=== PATIENT | male | born 1945 | race Caucasian/White ===

== ENCOUNTER 2019-05-26 07:26 | Inpatient (IN) | payer MEDICARE, OTHER, SELFPAY ==
[2019-05-26] VITALS (9 sets, daily range): BP systolic 135–169; BP diastolic 70–91; PULSE 61–90; RESP 18–20; TEMP 36.3–37.1; O2SAT 93–98; BMI 39.7
--- NOTE | 2019-05-26 07:33 | ED_ITS ---
HPI - Male Genitourinary General: Chief complaint: Urogenital-Male Stated complaint: can't urinate Time Seen by Provider: 05/26/19 07:33 Source: patient Mode of arrival: ambulatory Limitations: no limitations History of Present Illness: HPI Narrative: 73-year-old male comes in today with dysuria. Patient reports Monday night he had become intoxicated and was seen at emergency room and [place]. At that time patient was released to home care and has been doing okay but he has not been able to urinate stream. Patient reports that he has had a seepage of urine from his penis since then. Patient reports he also feels full in the abdomen and has some right flank pain. Patient denies chills or fever. Patient has a history of BPH which he is on tamsulosin for. Patient also takes routine medication for blood pressure and cholesterol. Patient appears well, patient appears in mild pain. MD Complaint: dysuria Review of Systems General: Reports: 10 or more systems reviewed and unremarkable except in HPI and below : Reports: difficulty urinating PFSH ED PFSH: Statuses (acute, chronic, etc) shown below reflect problem list status as previously entered and may not be historically accurate Social History (Updated 05/24/19 @ 14:42 by Mindy Kingston LPN) Smoking and tobacco status: never smoked Second hand smoke exposure: No Smoking risk assessment/counseling performed?: No Alcohol intake: never Desire information about alcohol rehabilitation?: No Counseling given: No Desire information about substance/drug rehabilitation?: No Counseling given: No Physical Exam Const: COMMON NORMALS: no apparent distress and oriented x3 GENERAL APPEARANCE: cooperative HENMT: COMMON NORMALS: normocephalic, external ears normal, EAC's normal, TM's normal bilaterally and external nose normal HEAD & SCALP: normal to inspection and normocephalic FACE & SINUS: normal facial exam NOSE: external nose normal GENERAL EAR: hearing not grossly impaired EXTERNAL EAR: Yes external ears normal EXTERNAL AUDITORY CANAL: EAC's normal TYMPANIC MEMBRANE: TM's normal bilaterally MOUTH: oral and palatal mucosa normal THROAT: posterior oropharynx normal Eye: COMMON NORMALS: PERRL and EOMs intact bilaterally PUPIL: Yes PERRL Neck/C-Spine: COMMON NORMALS: full ROM and no lymphadenopathy Lymph: LYMPHATIC: no lymphedema noted Chest: COMMONS NORMALS: inspection of chest normal and palpation of chest normal Resp: COMMON NORMALS: normal respiratory effort and clear to auscultation bilaterally AUSCULTATION: clear to auscultation bilaterally Cardio: COMMON NORMALS: regular rate and regular rhythm RATE: regular rate RHYTHM: regular rhythm GI: COMMON NORMALS: normal to inspection, nondistended, normoactive bowel sounds PALPATION: Yes tender (suprapubic tenderness) : COMMON NORMALS: Yes no CVA tenderness BLADDER/KIDNEY EXAM: Yes no CVA tenderness Back/Pelvis: COMMON NORMALS: no CVA tenderness and thoracic and lumbar spine normal to inspection Extremity: COMMON NORMALS: normal to inspection GENERAL: No edema Neuro: COMMON NORMALS: oriented x3, moves all extremities and no focal motor deficits Psych: COMMON NORMALS: mental status grossly normal and cooperative Skin: COMMON NORMALS: no rashes or lesions noted GENERAL SKIN EXAM: no rashes or lesions noted Course ED course: 0850, patient has had 1200 urine output at this time through Voss catheterization. Patient is resting well. Reviewed labs with patient as patient is in acute kidney failure. Patient's creatinine has gone from 0.8 in February 2019 to [address] Alonzo who agreed patient needed to be admitted for further evaluation and treatment. ww 0920, Dr. Willoughby consulted for hospital admission. Dr. Lockwood notified of consult, he will see in hospital as needed. Dr. Alonzo did admission orders. w Vital Signs: Vital signs: Vital Signs Temperature 97.9 F 05/26/19 07:31 Pulse Rate 80 05/26/19 10:32 Respiratory Rate 18 05/26/19 10:32 Blood Pressure 155/91 05/26/19 10:32 Pulse Oximetry 98 05/26/19 10:32 MDM - Male MDM Narrative: Medical decision making narrative: Patient comes in today for complaints of urinary difficulty. On exam patient had right CVA tenderness, abdominal tenderness. Respirations were even lungs are clear to auscultation. Skin was warm and dry color is pink. Differential diagnosis includes UTI, urinary retention, obstructive uropathy, renal calculi, acute kidney failure. CT scan noted distended bladder with bilateral hydronephrosis. Laboratory values noted a elevated creatinine at 13. Urinalysis noted blood in urine. Strongly suggest acute kidney injury with urinary retention. Patient will need admission to the hospital for monitoring of urinary function and possible nephrology consult for further treatment of acute kidney failure. Urinary catheterization was performed in the emergency room with greater than 2000 mL out. Lab Data: Labs: Lab Results 05/26/19 05/26/19 05/26/19 Range/Units 07:50 07:50 08:20 WBC 11.1 H (4.0-10.0) 10^3/ uL RBC 4.11 (4.1-5.3) 10^6/u L Hgb 12.6 (11.7-16.6) g/dL Hct 36.6 L (42.0-52.0) % MCV 89.1 (80-94) fL MCH 30.7 (28.0-34.0) pg MCHC 34.4 (30.0-36.0) g/dL RDW 13.6 (12.1-15.1) % Plt Count 195 (130-400) 10^3/c mm MPV 10.9 H (7.4-10.4) fL Neut % (Auto) 83.9 % Lymph % (Auto) 5.3 % [place] % (Auto) 9.5 % Eos % (Auto) 0.3 % Baso % (Auto) 0.2 % Neut # (Auto) 9.3 H (1.8-7.7) 10^3/u L Lymph # (Auto) 0.6 L (0.8-4.8) 10^3/u L [place] # (Auto) 1.1 H (0.2-0.9) 10^3/u L Eos # (Auto) 0.0 (0.0-0.8) 10^3/u L Baso # (Auto) 0.0 (0.0-0.1) 10^3/u L Nucleated RBC % (a uto) 0 % Nucleated RBCs # 0.0 /100WBC Sodium 132 L (136-145) mmol/L Potassium 4.7 (3.5-5.1) mmol/L Chloride 93 L (98-107) mmol/L Carbon Dioxide 19 L (22-29) mmol/L Anion Gap 24.7 H (5-19) BUN 119 H* (8-23) mg/dL Creatinine 13.3 H* (0.7-1.2) mg/dL Glucose 126 H (65-115) mg/dL Calcium 9.3 (8.5-10.5) mg/dL Total Bilirubin 0.4 (0.15-1.2) mg/dL AST 14 (0-40) U/L ALT 13 (0-41) U/L Alkaline Phosphata se 84 (40-130) IU/L Total Protein 6.6 (6.6-8.7) g/dL Albumin 3.7 (3.5-5.2) g/dL Globulin 2.9 (1.3-4.6) g/dL Urine Color Straw (Yellow) Urine Appearance Hazy A (CLEAR) Urine pH 5 (5-7) Ur Specific Gravit y 1.010 (1.005-1.030) Urine Protein 1+ H (Negative) Urine Glucose (UA) Norm (Normal) Urine Ketones Negative (Negative) Urine Occult Blood 3+ H (Negative) Urine Nitrate Negative (Negative) Urine Bilirubin Neg (NEGATIVE) Urine Urobilinogen Norm (Negative) mg/dL Ur Leukocyte [place] a[place] Negative (Negative) Urine RBC 5-10 H (0-2) /hpf Urine WBC None (0-5) /hpf Ur Squamous Epith Cells Rare (0-5) Amorphous Sediment 1+ Urine Bacteria Trace (NONE) Urine Mucus Trace Ethyl Alcohol < 10 (0-10) mg/dL Discharge Plan Discharge Patient Disposition: Admitted As Inpatient Admit Provider: Robbi Lam Clinical Impression: MANUEL (acute kidney injury), Acute retention of urine Condition: Stable Referrals: Saúl Penaloza, FLOORING SALESPERSON [Primary Care Provider] - Coding Level of Care Code ED Public Health Aide for Chg Fwd Exam Problem Focused
--- NOTE | 2019-05-26 07:42 | CT_ITS ---
WS: [id number] CT ABDOMEN PELVIS HISTORY: 73 years old Male with right flank pain COMPARISON: None available. TECHNIQUE: 2.[address] images of the abdomen and pelvis with 2-D reformats. DLP: 2225.[address] scans at [facility] use at least one of these dose optimization techniques: automat ed exposure control; mA and/or kV adjustment per patient size (includes targeted exams where dose is matched to clinical indication); or iterative reconstruction. FINDINGS: Inferior lingular and bilateral lower lobe linear subsegmental atelectasis. No pleural or pericardial effusions. Left coronary artery calcifications. Aortic annular calcifications. GE junction and dista l esophagus unremarkable. Distal descending thoracic aorta atherosclerosis. Included ribs intact. Splenic calcified granulomas, otherwise the spleen is unremarkable. Adrenal glands, pancreas, contrac micaela gallbladder, and liver with multiple low-attenuation lesions measuring up to 17 mm cyst, otherwis e unremarkable. Large right kidney inferior pole 9.6 cm, right mid kidney anterior 3.7 cm, right mid kidney 2.3 cm, and left kidney inferior pole 5.2 cm cyst. Mild bilateral hydronephrosis and hydrouret er to the level of the urinary bladder. Urinary bladder is moderately distended. No evidence of urete rolithiasis. Right kidney lower pole 4.9 mm stone. No biliary stone seen. No obvious biliary or pancr eatic ductal dilatation. Symmetric bilateral perinephric fat induration. No pericholecystic or peripa ncreatic fat induration. Stomach, small bowel, large bowel are not abnormally distended. Scattered transverse, descending, sig moid colon diverticulosis without evidence of diverticulitis. The retrocecal appendix is unremarkable . No obvious bowel wall thickening or adjacent fat induration. Perivesical fat induration is seen anteriorly and left along the left urinary bladder as well as retr operitoneal the left ureter. Prostate is enlarged and along the posterior prostate, there is curvilin ear edema and/or fluid with calcifications. Perirectal fat planes are unremarkable. Small umbilical fat-containing hernia. No inguinal, retroperitoneal, or mesenteric enlarged lymph nod e. Proximal to the aortic bifurcation there is a 4.3 cm saccular aneurysm. Aortoiliac artery calcific atheromatous plaque. No free air, free fluid, fluid collection. Bilateral hip joint and SI joint ost eoarthrosis. Left convex thoracolumbar spine curvature. No fracture destruction seen. CT/CT kidney stone [id number] IMPRESSION: 1. Mild bilateral hydronephrosis and hydroureter and moderately distended urina ry bladder; question vesicoureteral reflux or bilateral UVJ obstruction. 2. Nonspecific perivesical and left retroperitoneal soft tissue induration may be secondary to postinfectious/inflammatory process. Other etiologies not exclu ded. Consider short-term follow-up CT abdomen pelvis in 3 months. 3. Hepatorenal cysts. 4. Right nephrolithiasis. 5. 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 6. Prostatomegaly with posterior prostatic low-attenuation, possibly represents prostatic edema or small fluid collection. Clinical/biochemical correlation ne eded.
[2019-05-26 08:06] LABS: Basophils % 0.2 %; Eosinophils % 0.3 %; Hematocrit 36.6 % (42.0-52.0); Hemoglobin 12.6 g/dL (11.7-16.6); Lymphocytes # 0.6 10^3/uL (0.8-4.8); Lymphocytes % 5.3 %; Mean Corpuscular HGB Conc 34.4 g/dL (30.0-36.0); Mean Corpuscular Hemoglobin 30.7 pg (28.0-34.0); Mean Corpuscular Volume 89.1 fL (80-94); Mean Platelet Volume 10.9 fL (7.4-10.4); Monocytes # 1.1 10^3/uL (0.2-0.9); Monocytes % 9.5 %; Neutrophils # 9.3 10^3/uL (1.8-7.7); Neutrophils % 83.9 %; Nucleated Red Blood Cells % 0 %; Platelet Count 195 10^3/cmm (130-400); Red Blood Count 4.11 10^6/uL (4.1-5.3); Red Cell Distribution Width 13.6 % (12.1-15.1); White Blood Count 11.1 10^3/uL (4.0-10.0)
[2019-05-26] MEDS: HYDROcodone-acetaminophen 5-325 mg Tablet 1 TAB PO ×2 (08:07→22:34)
[2019-05-26 08:25] LABS: Alanine Aminotransferase 13 U/L (0-41); Albumin Level 3.7 g/dL (3.5-5.2); Alkaline Phosphatase 84 IU/L (40-130); Anion Gap 24.7 (5-19); Aspartate Amino Transferase 14 U/L (0-40); Calcium 9.3 mg/dL (8.5-10.5); Carbon Dioxide 19 mmol/L (22-29); Chloride 93 mmol/L (98-107); Globulin 2.9 g/dL (1.3-4.6); Glucose 126 mg/dL (65-115); Potassium 4.7 mmol/L (3.5-5.1); Sodium 132 mmol/L (136-145); Total Bilirubin 0.4 mg/dL (0.15-1.2); Total Protein 6.6 g/dL (6.6-8.7)
[2019-05-26 08:38] LABS: Alcohol Level < 10 mg/dL (0-10)
[2019-05-26 08:39] LABS: Blood Urea Nitrogen 119 mg/dL (8-23)
[2019-05-26 08:52] LABS: Urine Appearance Hazy (CLEAR); Urine Color Straw (Yellow)
[2019-05-26 08:53] LABS: Add Urine Microscopic? YES; Bilirubin Urine Neg (NEGATIVE); Blood Urine 3+ (Negative); Glucose Urine UA Norm (Normal); Ketones Urine Negative (Negative); Leukocyte Esterase Urine Negative (Negative); Nitrate Urine Negative (Negative); Protein Urine 1+ (Negative); Urobilinogen Urine Norm (Negative); pH Urine 5 (5-7)
[2019-05-26 08:54] LABS: Amorphous Sediment Urine 1+; Bacteria Urine TRACE; Mucus Urine TRACE; Squamous Epithelial Cell Urine RARE (0-5)
[2019-05-26 08:55] LABS: Add Urine Culture? No
--- NOTE | 2019-05-26 10:11 | PC.NURSE ---
pt stated no needs at this time
--- NOTE | 2019-05-26 10:23 | PC.NURSE ---
pt position changed. rn in to start IV.
[2019-05-26] MEDS: sodium chloride 0.9% 1,000 ML 100 ML IV ×2 (11:27→21:06)
[2019-05-26] MEDS: tamsulosin 0.4 mg Capsule PO (11:29)
[2019-05-26] MEDS: atorvastatin 40 mg Tablet 20 MG PO (11:30)
[2019-05-26] MEDS: allopurinol 100 mg Tablet 200 MG PO (11:30)
[2019-05-26] MEDS: metoprolol succinate ER (24 HR) 50 mg Tablet PO (11:30)
[2019-05-26] MEDS: amlodipine 5 mg Tablet 2.5 MG PO (11:30)
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
[2019-05-26] MEDS: heparin 5,000 unit/mL INJ 1 mL 5000 UNIT SUBCUT (15:45)
[2019-05-26] MEDS: artificial tears Op Soln 15 mL Btl 1 DROP EYE-BOTH (17:45)
--- NOTE | 2019-05-26 17:54 | NUR.SHIFT ---
PATIENT WAS TRANSFERRED TO THE OR FROM THE ER. WHEN REPORT WAS CALLED TO THIS NURSE IT WAS TOLD THAT PATIENT HAD 3000ML OF URINE OUTPUT IN THE GABRIEL CATHETER IN THE ER. THIS NURSE HAS HAD 3900ML OF URINE OUTPUT CLAMPING GABRIEL CATHETER TO NOT RECEIVE MORE THAN 1000ML OF URINE AT AT TIME. PATIENT'S URINE ALTERNATES BETWEEN CLEAR AND HEMATURIA. NO BLADDER SPASMS. NO PAIN.
[2019-05-27] VITALS (7 sets, daily range): BP systolic 110–153; BP diastolic 63–87; PULSE 76–84; RESP 18–20; TEMP 36.7–36.9; O2SAT 90–95
[2019-05-27 06:22] LABS: Basophils # 0.1 10^3/uL (0.0-0.1); Basophils % 0.8 %; Eosinophils # 0.1 10^3/uL (0.0-0.8); Eosinophils % 1.5 %; Hematocrit 37.3 % (42.0-52.0); Hemoglobin 12.4 g/dL (11.7-16.6); Lymphocytes # 0.8 10^3/uL (0.8-4.8); Lymphocytes % 10.7 %; Mean Corpuscular HGB Conc 33.2 g/dL (30.0-36.0); Mean Corpuscular Hemoglobin 31.6 pg (28.0-34.0); Mean Corpuscular Volume 94.9 fL (80-94); Mean Platelet Volume 10.7 fL (7.4-10.4); Monocytes # 0.7 10^3/uL (0.2-0.9); Monocytes % 9.8 %; Neutrophils # 5.6 10^3/uL (1.8-7.7); Neutrophils % 76.4 %; Nucleated Red Blood Cells % 0 %; Platelet Count 215 10^3/cmm (130-400); Red Blood Count 3.93 10^6/uL (4.1-5.3); Red Cell Distribution Width 13.8 % (12.1-15.1); White Blood Count 7.4 10^3/uL (4.0-10.0)
[2019-05-27 06:36] LABS: Anion Gap 16.4 (5-19); Blood Urea Nitrogen 40 mg/dL (8-23); Calcium 9.4 mg/dL (8.5-10.5); Carbon Dioxide 24 mmol/L (22-29); Chloride 108 mmol/L (98-107); Glucose 115 mg/dL (65-115); Osmolality Calculated 297 mOsm/kg (285-295); Potassium 4.4 mmol/L (3.5-5.1); Sodium 144 mmol/L (136-145)
[2019-05-27] MEDS: sodium chloride 0.9% 1,000 ML 100 ML IV (07:46)
[2019-05-27] MEDS: tamsulosin 0.4 mg Capsule PO (08:42)
[2019-05-27] MEDS: metoprolol succinate ER (24 HR) 50 mg Tablet PO (08:42)
[2019-05-27] MEDS: atorvastatin 40 mg Tablet 20 MG PO (08:42)
[2019-05-27] MEDS: amlodipine 5 mg Tablet 2.5 MG PO (08:42)
--- NOTE | 2019-05-27 08:55 | P.DS_ITS ---
Discharge Providers Date of Admission: 05/26/19 09:41 Date of Discharge: May 27, 2019 Attending Provider at Admission: Robbi Lam Attending Provider at Discharge: Robbi Lam Primary Care Provider: LUCAS Colby Diagnoses at Discharge Discharge Diagnosis (1) Acute retention of urine: Status: Acute (2) MANUEL (acute kidney injury): Status: Acute Reason for Visit Reason for Visit: Reason For Visit: obstructive uropathy Hospital Course Hospital Course: A pleasant 73-year-old gentleman with history of BPH, this, HTN, epididymitis, HTN, HLD, gout was admitted for assessment management of acute urinary obstruction, with inability to urinate since Monday, with overflow incontinence for which he has been having to wear depends, changing 2 or more soaked ones per day, was assessed by CT scan with finding of dilated urinary bladder as well as hydroureteronephrosis, with acute kidney injury with creatinine of 13.3. Urinary catheter was placed in ER with drainage of large amount of urine, subsequently mild hematuria. This is since resolved. He is received IV hydration overnight. His acute kidney injury, suspected due to combination post renal, as well as prerenal with poor appetite and oral intake, has improved remarkably with creatinine down to 1.6 this morning, improving quicker than expected. He reports he is feeling great and is ready to return home, and so will be discharged there with Voss catheter in place with leg bag, and we will increase his Flomax dose 2.8 mg. Discussed with him to follow-up with urology in 1-2 weeks. Please recheck his renal function in office. Physical Exam Const: COMMON NORMALS: no apparent distress and oriented x3 NUTRITIONAL APPEARANCE: obese OTHER: Conversant. HENMT: COMMON NORMALS: oropharynx normal Neck/C-Spine: COMMON NORMALS: no JVD Resp: COMMON NORMALS: normal respiratory effort and clear to auscultation bilaterally AUSCULTATION: clear to auscultation bilaterally Cardio: COMMON NORMALS: no JVD, regular rhythm, S1 normal heart sound, S2 normal heart sound and no murmurs RHYTHM: regular rhythm HEART SOUNDS: S1 normal and S2 normal GI: COMMON NORMALS: normal to inspection, nondistended, normoactive bowel sounds, soft to palpation and non-tender PALPATION: Yes soft Extremity: COMMON NORMALS: no joint enlargement and no pedal edema Neuro: COMMON NORMALS: oriented x3 and moves all extremities Skin: COMMON NORMALS: no rashes or lesions noted GENERAL SKIN EXAM: no rashes or lesions noted and dry skin Urinary Catheter Management^: 2-way Urethral: Cath Placed During This Visit: yes Urethral Indwelling: Yes Reason for Continuing Indwelling Catheter: Acute Urinary Retention or Obstruction Urinary Catheter Date of Insertion: 05/26/19 Urinary Catheter Time of Insertion: 08:31 Discharge Data Data Completed and Pending: Completed Studies During Hospitalization Category Date Time Status CT kidney stone [id number] Urgent Cat Scan 05/26/19 07:42 Completed Pending at discharge Category Date Time Status Basic Metabolic P adrian AM LABS Lab 05/28/19 04:00 Ordered Basic Metabolic P adrian AM LABS Lab 05/29/19 04:00 Ordered Complete Blood Co unt w/Auto AM LABS Lab 05/28/19 04:00 Ordered Complete Blood Co unt w/Auto AM LABS Lab 05/29/19 04:00 Ordered Labs from last 24 hours 05/27/19 05/27/19 05/26/19 05:50 05:50 08:20 WBC 7.4 RBC 3.93 L Hgb 12.4 Hct 37.3 L MCV 94.9 H D MCH 31.6 MCHC 33.2 RDW 13.8 Plt Count 215 MPV 10.7 H Neut % (Auto) 76.4 Lymph % (Auto) 10.7 [place] % (Auto) 9.8 Eos % (Auto) 1.5 Baso % (Auto) 0.8 Neut # (Auto) 5.6 Lymph # (Auto) 0.8 [place] # (Auto) 0.7 Eos # (Auto) 0.1 Baso # (Auto) 0.1 Nucleated RBC % (a uto) 0 Nucleated RBCs # 0.0 Sodium 144 Potassium 4.4 Chloride 108 H Carbon Dioxide 24 Anion Gap 16.4 BUN 40 H Creatinine 1.6 H Glucose 115 Calculated Osmolal ity 297 H Calcium 9.4 Urine RBC 5-10 H Urine WBC None Ur Squamous Epith Cells Rare Amorphous Sediment 1+ Urine Bacteria Trace Urine Mucus Trace Vitals: Last Vital Signs Temp 98.0 F 05/27/19 07:29 Pulse 83 05/27/19 07:29 Resp 18 05/27/19 07:29 BP 152/76 02/10/20 08:45 Pulse Ox 92 05/27/19 07:29 Discharge Plan Discharge Patient Disposition: Home, Self-Care Condition: Stable Prescriptions: Continued trazodone 50 mg tablet 50 mg PO QDAY Qty: 30 RF: 5 metoprolol succinate 50 mg tablet extended release 24 hr 50 mg PO QDAY Qty: 30 RF: 0 cholecalciferol (vitamin D3) 1,250 mcg (50,000 unit) capsule 50,000 unit PO .weekly Qty: 4 RF: 0 atorvastatin 20 mg Tablet 20 mg PO DAILY RF: 0 amlodipine 2.5 mg Tablet 2.5 mg PO DAILY RF: 0 Changed tamsulosin 0.4 mg Capsule 0.8 mg PO DAILY Qty: 30 RF: 0 Held lisinopril 40 mg tablet 40 mg PO DAILY Qty: 90 RF: 0 Hold Instructions: Resume on 06/03/19. allopurinol 100 mg Tablet 100 mg PO BID RF: 0 Hold Instructions: Resume on 06/03/19. Discharge Orders: Discharge Order (Routine); Ordered 05/27/19 Ordered By: Robbi Lam Referrals: Saúl Penaloza FNP [Primary Care Provider] - 4-7 days Jack Lockwood MD [Physician] - 1 week Discharge Diet: Cardiac Discharge Activity: Increase activity as tolerated Activity Restrictions/Additional Instructions: If you experience decreased amount of urine, blood in your urine, or other abnormal symptoms, please seek medical attention. Please have your primary care doctor recheck your kidney function in office. Avoid any NSAIDs like ibuprofen, Aleve, etc. Discharge Attestations Time Spent in Discharge Care*: greater than 30 min Quality Metrics Clinical Quality Measures During this hospital stay, did patient experience: None Coding Level of Care Code Acute Development Disability Specialist for [facility] Fwd Diagnoses Acute retention of urine R33.8 MANUEL (acute kidney injury) N17.9
--- NOTE | 2019-05-27 10:21 | PC.CHAP ---
Pastoral Care Encounter/Spiritual Assessment Type of Contact [] Declined surveillance monitor visit [] Patient/Family/Request visit [] Outpatient visit [] Follow-up visit [] Physician referral [] Code/Alert [x] Routine visit [] Staff referral [] Actively dying [] Patient sleeping [] Family support [] [] Out of room [] Palliative care [] [] Receiving care in room [] Pre-surgical visit [] Trauma [] Long length of stay [] ICU visit [] Other: Relational/Emotional Strength [x] Patient feels connected with others/family/visitors/staff [] Distress [] Loneliness/isolation [] Abandonment Spirituality of Patient [] Person of Mirella [] Attends [employer] of their Mirella [x] Believes in Prayer [] Reads Bible or Jehovah'S Witness materials [] There are Spiritual issues to be addressed Furniture Refinisher Interventions [x] Prayer [x] Active listening [x] Non-anxious presence [x] Spiritual/emotional support [] Crisis/trauma care [] Spiritual counseling [] Bereavement support [] Provided bereavement packet [] Provided Bible/devotional materials [] Provided toy/stuffed animal, coloring book to patient or family member [] Provided Communion [] Anointing/Rolla [] Salvation [x] Completed spiritual assessment [] Other: Impact on Illness or Injury [] Angry [] Fearful [] Anxious [] Often cries [] Exhaustion [] Unable to work [] Unable to attend gnosticism [] Unable to walk/stand [] Unable to read [] Unable to drive [] Unable to eat/drink [] Unable to sleep [] Unable to be with family [] Patient intubated [] Other: Summary Pt being dischaged as soon as arrives & before noon. Time spent with patient 7 minutes
--- NOTE | 2019-05-27 13:18 | PC.NURSE ---
PATIENT'S HERE TO PICK HIM UP, DISCHARGE INSTRUCTIONS WENT OVER WITH PATIENT AND SPOUSE ON HOW TO CARE FOR HIS GABRIEL CATH, CATH CARE, AND HOW TO EMPTY AND MAINTAIN HIS GABRIEL. ALL QUESTIONS WERE ANSWERED APPROPRIATELY, NO CONCERNS VOICED AT THIS TIME.
== END 2019-05-27 13:22 | disposition home or self-care (01) | DRG 683 ==
LOC: ER 10:01 → MEDSURG 10:25
PROVIDERS: Admitting Provider Internal Medicine; Emergency Provider Nurse Practitioner Family; PCP Nurse Practitioner Family; Visit Provider Internal Medicine
DX: N17.9 Acute kidney failure, unspecified (principal); E87.2 Acidosis; E87.1 Hypo-osmolality and hyponatremia; R33.8 Other retention of urine; I10 Essential (primary) hypertension; N40.1 Benign prostatic hyperplasia with lower urinary tract symptoms; E78.5 Hyperlipidemia, unspecified; N13.9 Obstructive and reflux uropathy, unspecified; Z91.81 History of falling; Z87.891 Personal history of nicotine dependence; R73.9 Hyperglycemia, unspecified; M10.9 Gout, unspecified
CPT/HCPCS: 12345; 36415; 51702; 74176; 80048; 80053; 80307; 81001; 85025; 96372; 99283; J1644; J7030

== ENCOUNTER → 2019-05-31 11:00 | Outpatient (BNVA) | payer MEDICARE, OTHER, SELFPAY | PROVIDERS: PCP Nurse Practitioner Family; Visit Provider Nurse Practitioner | DX: N17.9 Acute kidney failure, unspecified (principal); H10.33 Unspecified acute conjunctivitis, bilateral | CPT/HCPCS: 80053; 85025 ==

== ENCOUNTER → 2019-06-17 16:59 | Outpatient (BNVA) | payer MEDICARE, OTHER, SELFPAY | PROVIDERS: PCP Nurse Practitioner Family; Visit Provider Nurse Practitioner Family | DX: R50.9 Fever, unspecified (principal) | CPT/HCPCS: 85025 ==

== ENCOUNTER → 2019-06-19 12:03 | Outpatient (BNVA) | payer MEDICARE, OTHER, SELFPAY | PROVIDERS: PCP Nurse Practitioner Family; Visit Provider Nurse Practitioner Family | DX: N17.9 Acute kidney failure, unspecified (principal) | CPT/HCPCS: 81001 ==

== ENCOUNTER → 2019-06-27 11:00 | Outpatient (BNVA) | payer MEDICARE, OTHER, SELFPAY | PROVIDERS: PCP Nurse Practitioner Family; Visit Provider Nurse Practitioner Family | DX: R33.8 Other retention of urine (principal); N40.1 Benign prostatic hyperplasia with lower urinary tract symptoms; N13.8 Other obstructive and reflux uropathy | CPT/HCPCS: 81001 ==

== ENCOUNTER → 2019-07-08 13:16 | Outpatient (BNVA) | payer MEDICARE, OTHER, SELFPAY | PROVIDERS: PCP Nurse Practitioner Family; Visit Provider Urology | DX: N13.8 Other obstructive and reflux uropathy (principal); N40.1 Benign prostatic hyperplasia with lower urinary tract symptoms; R33.8 Other retention of urine | CPT/HCPCS: 81001 ==

== ENCOUNTER → 2019-10-11 11:50 | Outpatient (BNVA) | payer MEDICARE, OTHER, SELFPAY | PROVIDERS: PCP Nurse Practitioner Family; Visit Provider Nurse Practitioner Family | DX: I10 Essential (primary) hypertension (principal); N17.9 Acute kidney failure, unspecified; R71.0 Precipitous drop in hematocrit; Z79.899 Other long term (current) drug therapy; N13.8 Other obstructive and reflux uropathy; N40.1 Benign prostatic hyperplasia with lower urinary tract symptoms; E78.2 Mixed hyperlipidemia; Z12.5 Encounter for screening for malignant neoplasm of prostate | CPT/HCPCS: 80053; 80061; 81001; 83036; 83540; 84443; 85025; G0103 ==

== ENCOUNTER 2019-11-14 11:44 | Outpatient (CLI) | payer MEDICARE, OTHER, SELFPAY ==
--- NOTE | 2019-11-14 13:30 | CT_ITS ---
WS: [id number] CT ABDOMEN AND PELVIS NONCONTRAST HISTORY: abdominal pain TECHNIQUE: Imaging performed through the abdomen and pelvis. Coronal and sagittal reformats are submi tted. All CT scans at [facility] use at least one of these dose optimization techniques: automated exposure control; mA and/or kV adjustment per patient size (includes targeted exams where d ose is matched to clinical indication); or iterative reconstruction. DLP: 1225.64 mGycm COMPARISON: 05/26/2019 Lower thorax: Lung bases are clear. Mild cardiomegaly. No hiatal hernia. Liver: Liver is normal size and contains multiple low-attenuation nodules which are stable and most c onsistent with cysts. The largest measures 19 mm. No bile duct dilatation. Gallbladder: Unremarkable. Pancreas: Normal. Spleen: Normal. Adrenal glands: Normal. Right kidney: No renal obstruction. Previously described hydronephrosis and hydroureter has resolved. Several cysts within the RIGHT kidney with the largest measuring 8 cm from the lower pole. Nonobstru cting calcification in the mid kidney measures 5 mm. Ureter is normal caliber. Left kidney: Mild perinephric stranding. Exophytic cyst from the lower pole is stable measuring 5.5 c m in diameter. Hydronephrosis previously described has resolved. Extensive atherosclerosis aorta and mesenteric arteries. 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 No progression in size since the prior study. Co mmon iliac arteries are heavily calcified No free fluid, intraperitoneal air or significant lymphadenopathy. GI tract: No GI tract obstruction. Normal appendix. Abdominal wall: Fat-containing umbilical hernia. Pelvis: No free fluid in the pelvis. Prostate gland is markedly enlarged measuring 6.3 x 6.2 cm with encroachment into the posterior bladder. Mixed density in the prostate gland. More fluid cystic like collection posteriorly similar to the prior study. No adjacent inflammation or periprosthetic indurat ion of the fat. Urinary bladder is not distended. There is mild thickening of the bladder wall. Osseous structures: Increase in lumbar lordosis. No osteoblastic or osteolytic bone disease. CT/CT abdomen pelvis wo con [id number] IMPRESSION: 1. Resolved bilateral hydroureteronephrosis since 05/26/2019. 2. 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 3. Stable hepatic and renal cysts. 4. Enlarged heterogeneous prostate gland.
== END 2019-11-14 11:45 | disposition home or self-care (01) ==
PROVIDERS: PCP Nurse Practitioner Family; Visit Provider Nurse Practitioner Family
DX: R10.9 Unspecified abdominal pain (principal); I71.4 Abdominal aortic aneurysm, without rupture; K76.89 Other specified diseases of liver; N28.1 Cyst of kidney, acquired; N40.0 Benign prostatic hyperplasia without lower urinary tract symptoms
CPT/HCPCS: 74176

== ENCOUNTER → 2019-11-27 15:04 | Outpatient (BNVA) | payer MEDICARE, OTHER, SELFPAY | PROVIDERS: PCP Nurse Practitioner Family; Visit Provider Nurse Practitioner Family | DX: N39.0 Urinary tract infection, site not specified (principal) | CPT/HCPCS: 80053; 81003 ==

== ENCOUNTER → 2020-02-04 10:34 | Outpatient (BNVA) | payer MEDICARE, OTHER, SELFPAY | PROVIDERS: PCP Nurse Practitioner Family; Visit Provider Nurse Practitioner Family | DX: N40.1 Benign prostatic hyperplasia with lower urinary tract symptoms (principal); N13.8 Other obstructive and reflux uropathy; J06.9 Acute upper respiratory infection, unspecified; Z20.828 Contact with and (suspected) exposure to other viral communicable diseases; R05 Cough; R50.9 Fever, unspecified | CPT/HCPCS: 81003; 87400; 87635 ==

== ENCOUNTER → 2020-03-09 08:31 | Outpatient (BNVA) | payer MEDICARE, OTHER, SELFPAY | PROVIDERS: PCP Nurse Practitioner Family; Visit Provider Nurse Practitioner Family | DX: E55.9 Vitamin D deficiency, unspecified (principal); I10 Essential (primary) hypertension; M10.9 Gout, unspecified; N17.9 Acute kidney failure, unspecified; N39.0 Urinary tract infection, site not specified | CPT/HCPCS: 80053; 81000; 82306; 84550; 85025; 87086 ==

== ENCOUNTER → 2020-03-18 13:24 | Outpatient (BNVA) | payer MEDICARE, OTHER, SELFPAY | PROVIDERS: PCP Nurse Practitioner Family; Visit Provider Urology | DX: N40.1 Benign prostatic hyperplasia with lower urinary tract symptoms (principal); N13.8 Other obstructive and reflux uropathy | CPT/HCPCS: 81003 ==

== ENCOUNTER → 2020-10-22 10:56 | Outpatient (BNVA) | payer MEDICARE, OTHER, SELFPAY | PROVIDERS: PCP Nurse Practitioner Family; Visit Provider Nurse Practitioner Family | DX: R82.81 Pyuria (principal) | CPT/HCPCS: 81003 ==

== ENCOUNTER → 2020-10-28 12:17 | Outpatient (BNVA) | payer MEDICARE, OTHER, SELFPAY | PROVIDERS: PCP Nurse Practitioner Family; Visit Provider Nurse Practitioner Family | DX: A49.9 Bacterial infection, unspecified (principal); N39.0 Urinary tract infection, site not specified | CPT/HCPCS: 81003; 87086 ==

== ENCOUNTER → 2020-11-09 08:38 | Outpatient (BNVA) | payer MEDICARE, OTHER, SELFPAY | PROVIDERS: PCP Nurse Practitioner Family; Visit Provider Urology | DX: N39.0 Urinary tract infection, site not specified (principal) | CPT/HCPCS: 87077; 87086; 87184 ==

== ENCOUNTER → 2020-12-08 12:02 | Outpatient (BNVA) | payer MEDICARE, OTHER, SELFPAY | PROVIDERS: PCP Nurse Practitioner Family; Visit Provider Nurse Practitioner Family | DX: N39.0 Urinary tract infection, site not specified (principal) | CPT/HCPCS: 81003; 87086 ==

== ENCOUNTER → 2021-05-03 14:45 | Outpatient (BNVA) | payer MEDICARE, OTHER, SELFPAY | PROVIDERS: PCP Nurse Practitioner Family; Visit Provider Urology | DX: N39.0 Urinary tract infection, site not specified (principal); N40.1 Benign prostatic hyperplasia with lower urinary tract symptoms; N13.8 Other obstructive and reflux uropathy | CPT/HCPCS: 81003 ==

== ENCOUNTER → 2021-10-25 12:35 | Outpatient (BNVA) | payer MEDICARE, OTHER, SELFPAY | PROVIDERS: PCP Nurse Practitioner Family; Visit Provider Urology | DX: N40.1 Benign prostatic hyperplasia with lower urinary tract symptoms (principal); N13.8 Other obstructive and reflux uropathy; N39.0 Urinary tract infection, site not specified | CPT/HCPCS: 51798; G0463; 81003; 99213 ==

== ENCOUNTER → 2022-01-20 08:51 | Outpatient (BNVA) | payer MEDICARE, OTHER, SELFPAY | PROVIDERS: PCP Nurse Practitioner Family; Visit Provider Nurse Practitioner Family | DX: M10.9 Gout, unspecified (principal); I10 Essential (primary) hypertension | CPT/HCPCS: 80053; 84550; 85025 ==

== ENCOUNTER → 2022-03-25 09:19 | Outpatient (BNVA) | payer MEDICARE, OTHER, SELFPAY | PROVIDERS: PCP Nurse Practitioner Family; Visit Provider Nurse Practitioner | DX: R31.9 Hematuria, unspecified (principal) | CPT/HCPCS: 81000 ==

== ENCOUNTER → 2022-03-28 11:03 | Outpatient (BNVA) | payer MEDICARE, OTHER, SELFPAY | PROVIDERS: PCP Nurse Practitioner Family; Visit Provider Nurse Practitioner | DX: R71.0 Precipitous drop in hematocrit (principal) | CPT/HCPCS: 85025 ==

== ENCOUNTER → 2022-04-06 08:25 | Outpatient (BNVA) | payer MEDICARE, OTHER, SELFPAY | PROVIDERS: PCP Nurse Practitioner Family; Visit Provider Nurse Practitioner | DX: K92.1 Melena (principal) | CPT/HCPCS: 85025 ==

== ENCOUNTER → 2022-04-12 10:20 | Outpatient (BNVA) | payer MEDICARE, OTHER, SELFPAY | PROVIDERS: PCP Nurse Practitioner Family; Visit Provider Nurse Practitioner | DX: R71.0 Precipitous drop in hematocrit (principal) | CPT/HCPCS: 85025 ==

== ENCOUNTER → 2022-04-22 09:15 | Outpatient (BNVA) | payer MEDICARE, OTHER, SELFPAY | PROVIDERS: PCP Nurse Practitioner Family; Visit Provider Surgery | DX: K62.5 Hemorrhage of anus and rectum (principal) | CPT/HCPCS: 99203 ==

== ENCOUNTER → 2022-04-28 08:49 | Outpatient (BNVA) | payer MEDICARE, OTHER, SELFPAY | PROVIDERS: PCP Nurse Practitioner Family; Visit Provider Nurse Practitioner | DX: R71.0 Precipitous drop in hematocrit (principal) | CPT/HCPCS: 85025 ==

== ENCOUNTER → 2022-05-16 12:24 | Outpatient (BNVA) | payer MEDICARE, OTHER, SELFPAY | PROVIDERS: PCP Nurse Practitioner Family; Visit Provider Internal Medicine Cardiovascular Disease | DX: I48.0 Paroxysmal atrial fibrillation (principal); I10 Essential (primary) hypertension; E78.2 Mixed hyperlipidemia; M10.9 Gout, unspecified; I71.40 Abdominal aortic aneurysm, without rupture, unspecified; Z87.891 Personal history of nicotine dependence; Z79.01 Long term (current) use of anticoagulants | CPT/HCPCS: 99214; Q3014 ==

== ENCOUNTER 2022-05-18 06:36 | Day surgery (SDC) | payer MEDICARE, OTHER, SELFPAY ==
[2022-05-16 09:13] VITALS: BMI 40.1
[2022-05-18 07:00] VITALS: BP 135/87; PULSE 100; RESP 18; TEMP 36.1; O2SAT 99
[2022-05-18] MEDS: sodium chloride 0.9% 1,000 ML 30 ML IV (07:24)
--- NOTE | 2022-05-18 08:05 | P.ANESASSM_ITS ---
Pre-Anesthetic Assessment Height/Weight: Height 1.83 m Weight 134.263 kg Temp Pulse Resp BP Pulse Ox O2 Del Method 97.0 F L 100 18 135/87 99 05/18/22 07:00 05/18/22 07:00 05/18/22 07:00 05/18/22 07:00 05/18/22 07:00 05/18/22 07:00 Operation Date: 05/18/22 08:30 Proposed Procedures p [id number] egd/colon K92.1,K62.5(Not Applicable) - Paul Ny DO s Colonoscopy(Not Applicable) - Paul Ny DO Was Beta Mary taken within 24 hours: Yes Was Clonidine taken within 24 hours: N/A Last intake: Intake Last Liquid Date 05/17/22 Last Liquid Time 23:50 Last Solid Date 05/16/22 Last Solid Time 18:00 Social No alcohol and No tobacco Exam alert, oriented x 3, clear to auscultation bilaterally and regular rate & rhythm Airway Submandibular: within normal limits Cervical ROM: within normal limits Mallampati: Class II History/ROS No significant history except as noted and No significant complaints Pulmonary None reported CV/HEM Atrial Fibrillation, Arrythmia and Hypertension recent visit to cardiology - [facility]/CV in March. ptient reports rate less than 100 since procedure. None reported Hepatic None reported GI None reported Metabolic Morbid Obesity [facility] None reported Neuropsych None reported Anesthetic Plan ASA status: 3 Anesthesia: Anesthesia Evaluation and MAC Risk of > 500 ml blood loss (7ml/kg in children): Yes, adequate IV access and fluids planned Medications/Allergies Home Medications Medication Instructions Recorded Confirmed Last Taken Type tamsulosin 0.4 mg capsule 0.4 mg PO BID #180 caps 10/22/21 05/16/22 05/16/22 Rx apixaban 5 mg tablet (Eliquis) 5 mg PO BID #60 tabs 04/19/22 05/16/22 05/15/22 Rx allopurinol 100 mg tablet 200 mg PO DAILY 05/16/22 05/16/22 05/17/22 History atorvastatin 20 mg tablet 20 mg PO DAILY 05/16/22 05/16/22 05/18/22 04:30 History cholecalciferol (vitamin D3) 1,250 1,250 mcg PO .Weekly PRN low labs 05/16/22 05/18/22 1 Month Ago History mcg (50,000 unit) capsule ~04/17/22 finasteride 5 mg tablet 5 mg PO DAILY 05/16/22 05/16/22 05/16/22 History metoprolol succinate 25 mg 25 mg PO BID 05/16/22 05/18/22 05/17/22 04:30 History tablet,extended release 24 hr trazodone 50 mg tablet 50 mg PO .HS PRN Sleep 05/16/22 05/18/22 2 Months Ago History ~03/17/22 lisinopril 20 mg tablet 20 mg PO DAILY 05/18/22 05/18/22 05/17/22 History Allergies Allergy/AdvReac Type Severity Reaction Status Date / Time No Known Allergies Allergy Verified 05/18/22 07:13 Current Medications Generic Name Dose Route Start Last Admin Trade Name Freq PRN Reason Stop Dose Admin Sodium Chloride 1,000 mls @ 30 mls/hr 05/18/22 07:00 05/18/22 07:24 Sodium Chloride 0.9% IV 05/19/22 06:59 30 mls/hr .Q24H RAHEEL Administration PFSH Anesthesia Medical History Abdominal aortic aneurysm (AAA) 3.0 cm to 5.5 cm in diameter in male Abnormal findings on diagnostic imaging of other abdominal regions, including retroperitoneum BPH with obstruction/lower urinary tract symptoms Epididymitis Essential hypertension Gout H/O drainage of abscess 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 Hemoglobin decreased Lower respiratory infection Medication management Mixed hyperlipidemia Otitis externa Otitis media of both ears Recurrent UTI Saccular aneurysm UTI (urinary tract infection), bacterial Viral upper respiratory infection Vitamin D deficiency Family History (Updated 05/16/22 @ 12:48 by Jessica Horton RN) Family/Other CAD (coronary artery disease) Cancer lung Myocardial infarction Mother Myocardial infarction Stroke Social History (Updated 05/16/22 @ 12:48 by Jessica Horton RN) Smoking and tobacco status: former smoker Quit status (tobacco): has quit using tobacco Year quit tobacco: 1975 Second hand smoke exposure: No Smoking risk assessment/counseling performed?: No Alcohol intake: current Alcohol intake frequency: holidays/special occasions only Desire information about alcohol rehabilitation?: No Counseling given: No Desire information about substance/drug rehabilitation?: No Counseling given: No Household members: spouse Marital status: History of recent travel: No Data Anesthesia Cardiac Studies: No Data to Display
--- NOTE | 2022-05-18 08:31 | W.PM.OPSUD ---
Surgery/Procedure H&P Update DATE OF PROCEDURE: May 18, 2022 DATE H&P PERFORMED: 04/22/22 PLANNED PROCEDURE: Operation Date: 05/18/22 08:30 Proposed Procedures p [id number] egd/colon K92.1,K62.5(Not Applicable) - DO brenda Kan Colonoscopy(Not Applicable) - Paul Ny DO
[2022-05-18 09:03] VITALS: BP 114/68; PULSE 86; RESP 16; TEMP 36.4; O2SAT 96
[2022-05-18 09:15] VITALS: BP 124/65; PULSE 86; RESP 16; O2SAT 96
[2022-05-18 09:54] LABS: Carcinoembryonic Antigen 19.8 ng/mL (0.0-4.7)
--- NOTE | 2022-05-18 14:08 | ANE.PACU2 ---
Inpatient post-anesthesia follow up: Airway intact: Yes Vital signs: Temperature 97.6 F Pulse Rate 86 Respiratory Rate 16 Blood Pressure 124/65 Pulse Oximetry 96 Oxygen Delivery Me thod Room Air Oxygen Flow Rate Fraction of Inspir ed Oxygen Hydration adequate: Yes Nausea and vomiting: No Pain level: 2 Mental status: Baseline
[2022-05-23 11:52] LABS: Mismatch Repari Proteins-IHC See Report
== END 2022-05-18 09:45 | disposition home or self-care (01) ==
PROVIDERS: Visit Provider Surgery
PROC: 0DJ08ZZ Inspection of Upper Intestinal Tract, Via Natural or Artificial Opening Endoscopic (ICD-10-PCS; CPT 43235; principal; 2022-05-18 08:30)
PROC: 0DJD8ZZ Inspection of Lower Intestinal Tract, Via Natural or Artificial Opening Endoscopic (ICD-10-PCS; CPT 45378; 2022-05-18 08:30)
DX: K92.1 Melena (principal); K64.8 Other hemorrhoids; K29.50 Unspecified chronic gastritis without bleeding; B96.81 Helicobacter pylori [H. pylori] as the cause of diseases classified elsewhere; D12.2 Benign neoplasm of ascending colon; D12.3 Benign neoplasm of transverse colon; C19 Malignant neoplasm of rectosigmoid junction; I48.91 Unspecified atrial fibrillation; I10 Essential (primary) hypertension; N40.0 Benign prostatic hyperplasia without lower urinary tract symptoms; E78.2 Mixed hyperlipidemia; Z87.891 Personal history of nicotine dependence
CPT/HCPCS: 36415; 43239; 45380; 45385; 82378; 88305; 88360; J2704; J7030

== ENCOUNTER → 2022-05-20 11:49 | Outpatient (BNVA) | payer MEDICARE, OTHER, SELFPAY | PROVIDERS: Visit Provider Surgery | DX: Z09 Encounter for follow-up examination after completed treatment for conditions other than malignant neoplasm (principal); K64.8 Other hemorrhoids; C19 Malignant neoplasm of rectosigmoid junction; K31.819 Angiodysplasia of stomach and duodenum without bleeding; D12.6 Benign neoplasm of colon, unspecified | CPT/HCPCS: 99212 ==

== ENCOUNTER 2022-07-18 12:19 | Oncology outpatient (recurring) (ONCR) | payer MEDICARE, OTHER, SELFPAY ==
[2022-07-18 14:53] LABS: Basophils % 0.5 %; Eosinophils # 0.1 10^3/uL (0.0-0.8); Eosinophils % 1.3 %; Hemoglobin 11.8 g/dL (11.7-16.6); Lymphocytes % 15.8 %; Mean Corpuscular HGB Conc 31.9 g/dL (30.0-36.0); Mean Corpuscular Hemoglobin 29.2 pg (28.0-34.0); Mean Corpuscular Volume 91.6 fl (80-94); Monocytes # 0.4 10^3/uL (0.2-0.9); Monocytes % 7.2 %; Neutrophils # 4.55 10^3/uL (1.8-7.7); Neutrophils % 74.9 %; Nucleated Red Blood Cells % 0 %; Platelet Count 166 10^3/cmm (130-400); Red Blood Count 4.04 10^6/uL (4.1-5.3); Red Cell Distribution Width 14.5 % (12.1-15.1); White Blood Count 6.1 10^3/uL (4.0-10.0)
[2022-07-18 15:19] LABS: Carcinoembryonic Antigen 6.8 ng/mL (0.0-4.7)
[2022-07-18 15:33] LABS: Alanine Aminotransferase 8 U/L (0-41); Albumin Level 4.1 g/dL (3.5-5.2); Alkaline Phosphatase 95 U/L (40-130); Anion Gap 14.1 (5-19); Aspartate Amino Transferase 15 U/L (0-40); Blood Urea Nitrogen 14 mg/dL (8-23); Carbon Dioxide 26 mmol/L (22-29); Chloride 103 mmol/L (98-107); Globulin 1.8 g/dL (1.3-4.6); Glucose 88 mg/dL (65-115); Osmolality Calculated 288 mOsm/kg (285-295); Potassium 4.1 mmol/L (3.5-5.1); Sodium 139 mmol/L (136-145); Total Bilirubin 0.5 mg/dL (0.15-1.2); Total Protein 5.9 g/dL (6.6-8.7)
== END 2022-08-14 23:59 | disposition home or self-care (01) ==
LOC: ONCMED 12:25
PROVIDERS: Visit Provider Internal Medicine Hematology & Oncology
DX: C18.7 Malignant neoplasm of sigmoid colon (principal); Z90.49 Acquired absence of other specified parts of digestive tract; Z87.891 Personal history of nicotine dependence
CPT/HCPCS: 36415; 80053; 82378; 85025; 99204

== ENCOUNTER → 2022-08-08 12:08 | Outpatient (BNVA) | payer MEDICARE, OTHER, SELFPAY | PROVIDERS: PCP Nurse Practitioner; Visit Provider Nurse Practitioner Family | DX: I10 Essential (primary) hypertension (principal); I48.91 Unspecified atrial fibrillation; Z87.891 Personal history of nicotine dependence; Z79.01 Long term (current) use of anticoagulants | CPT/HCPCS: 99214 ==

== ENCOUNTER 2022-09-20 11:14 | Emergency (ER) | payer MEDICARE, OTHER, SELFPAY ==
[2022-09-20] VITALS (7 sets, daily range): BP systolic 164–204; BP diastolic 69–88; PULSE 72–84; RESP 14–20; TEMP 36.7; O2SAT 96–100; BMI 37.7
--- NOTE | 2022-09-20 12:17 | ED_ITS ---
HPI - Weakness General: Chief complaint: Weakness Stated complaint: B/P issues Time Seen by Provider: 09/20/22 12:00 History of Present Illness: Patient presents to the ER with complaints of high blood pressure. Patient is high blood pressure has been going on the last 2 to 3 days. Patient also complains he is weak all over and has anxiety. Patient recently started putting his blood pressure pill and a medical planner thinks he may have messed up his dosages. Patient just had lab work done by Dr. Jackson's office and per patient was all normal patient has no other complaints at this time MD Complaint: generalized weakness (And high blood pressure) Onset (ago): day(s) (2 to 3 days ago) Duration: constant Location: generalized Review of Systems General: Reports: 10 or more systems reviewed and unremarkable except in HPI and below PFSH ED PFSH: Medical History Abdominal aortic aneurysm (AAA) 3.0 cm to 5.5 cm in diameter in male Abnormal findings on diagnostic imaging of other abdominal regions, including retroperitoneum Adenocarcinoma of rectosigmoid junction Atrial fibrillation BPH with obstruction/lower urinary tract symptoms Cancer of sigmoid colon Epididymitis Essential hypertension Gastric antral vascular ectasia Gout H/O drainage of abscess 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 Hemoglobin decreased Lower respiratory infection Medication management Mixed hyperlipidemia Otitis externa Otitis media of both ears Recurrent UTI Saccular aneurysm Tubular adenoma of colon UTI (urinary tract infection), bacterial Viral upper respiratory infection Vitamin D deficiency Family History Family/Other CAD (coronary artery disease) Cancer lung Myocardial infarction Mother Myocardial infarction Stroke Social History Smoking and tobacco status: former smoker Quit status (tobacco): has quit using tobacco Year quit tobacco: 1975 Former quit date comment: smoked x4 years Second hand smoke exposure: No Smoking risk assessment/counseling performed?: No Alcohol intake: current Alcohol intake frequency: holidays/special occasions only Desire information about alcohol rehabilitation?: No Counseling given: No Substance/Drug Use: never Desire information about substance/drug rehabilitation?: No Counseling given: No Household members: spouse Marital status: Physical Exam Const: COMMON NORMALS: no acute distress, average body habitus, patient oriented x3, no limitations, healthy appearing, alert and well nourished HENMT: COMMON NORMALS: normocephalic, atraumatic, hearing grossly normal bilaterally, external ears normal, Normal external nose present and moist oral mucous membranes HEAD & SCALP: normocephalic and atraumatic NOSE: Normal external nose present EXTERNAL EAR: Yes external ears normal Eye: COMMON NORMALS: Equal, round and reactive pupils present, EOMs intact bilaterally, conjunctivae normal and no scleral icterus CONJUNCTIVA: Yes conjunctivae normal PUPIL: Yes Equal, round and reactive pupils present Neck/C-Spine: COMMON NORMALS: full ROM, no lymphadenopathy, supple, no meningeal signs, no JVD and Thyroid normal THYROID: Thyroid normal Chest: COMMONS NORMALS: normal inspection of the chest and normal palpation of entire chest wall Resp: COMMON NORMALS: normal respiratory effort, No retractions, No use of accessory muscles and clear to auscultation bilaterally AUSCULTATION: clear to auscultation bilaterally Cardio: COMMON NORMALS: no JVD, regular rate, regular rhythm, S1 normal heart sound present, S2 normal heart sound present, No gallops present (Cardio), No clicks present (Cardio), No murmurs present (Cardio) and No rub (Cardio) RATE: regular rate RHYTHM: regular rhythm HEART SOUNDS: S1 normal heart sound present and S2 normal heart sound present GI: COMMON NORMALS: Normal to inspection, nondistended, normoactive bowel sounds present, Soft to palpation, non-tender, No hepatosplenomegaly present and no masses PALPATION: Yes Soft to palpation and Yes No hepatosplenomegaly present : COMMON NORMALS: Yes no CVA tenderness BLADDER/KIDNEY EXAM: Yes no CVA tenderness Back/Pelvis: COMMON NORMALS: no CVA tenderness Neuro: COMMON NORMALS: patient oriented x3 SENSORIUM/ORIENTATION: Yes alert MENINGEAL SIGNS: Yes no meningeal signs Course Vital Signs: Vital signs: Vital Signs Temperature 98.1 F 09/20/22 11:38 Pulse Rate 74 09/20/22 13:38 Respiratory Rate 18 09/20/22 13:38 Blood Pressure 164/69 09/20/22 13:38 Pulse Oximetry 100 09/20/22 13:38 Oxygen Delivery Me thod Room Air 09/20/22 13:38 MDM - Weakness Medical Decision Making Patient presents to the ER with possible medication mismanagement. Patient arrived with high blood pressure. Patient was given clonidine 0.1 mg p.o. did not have much effect. An IV was started patient was given 20 mg labetalol IV and did lower his blood pressure to 165/82 and his heart rate was stayed satisfactory. Patient be discharged home and instructed to find a better way to manage his medicine so a medication mismanagement does not occur again. Patient should follow-up with his PCP within 1 week for medication reevaluation. Differential Diagnosis Unlikely acute myocardial infarction, anemia, hypoglycemia, hypothyroidism, rhabdomyolysis, sepsis or dehydration Medical Records I reviewed the patient's medical records. Lab Data I reviewed the patient's lab results. Discharge Plan Discharge Patient Disposition: Home Clinical Impression: Hypertension Qualifiers: Hypertension type: primary hypertension Qualified Code(s): I10 - Essential (primary) hypertension Condition: Stable Prescriptions: No Action metoprolol succinate 25 mg tablet extended release 24 hr 50 mg PO BID Qty: 180 3RF docusate sodium 100 mg capsule 100 mg PO BID PRN (Reason: Constipation) mupirocin 2 % ointment 1 applic topical BID Qty: 15 0RF tamsulosin 0.4 mg capsule 0.4 mg PO BID Qty: 180 3RF Eliquis 2.5 mg tablet 2.5 mg PO BID Qty: 180 1RF Hold Instructions: Resume on 05/21/22. allopurinol 100 mg tablet 200 mg PO DAILY Qty: 60 0RF Rx Instructions: TAKE TWO TABLETS BY MOUTH EVERY DAY FOR 90 DAYS atorvastatin 20 mg tablet 20 mg PO DAILY Qty: 30 0RF Rx Instructions: TAKE ONE TABLET BY MOUTH EVERY DAY lisinopril 20 mg tablet See Rx Instructions .ROUTE .COMPLEX Qty: 30 1RF Dose Instruction: TAKE 1 TABLET BY MOUTH EVERY DAY Rx Instructions: TAKE 1 TABLET BY MOUTH EVERY DAY trazodone 50 mg tablet See Rx Instructions .ROUTE .COMPLEX Qty: 30 1RF Dose Instruction: TAKE 1 TABLET BY MOUTH ONCE EVERY NIGHT AT BEDTIME NEEDED FOR SLEEP Rx Instructions: TAKE 1 TABLET BY MOUTH ONCE EVERY NIGHT AT BEDTIME NEEDED FOR SLEEP finasteride 5 mg tablet 5 mg PO DAILY Rx Instructions: TAKE ONE TABLET BY MOUTH EVERY DAY FOR 90 DAYS cholecalciferol (vitamin D3) 1,250 mcg (50,000 unit) capsule 1,250 mcg PO Q7D PRN (Reason: low labs) Rx Instructions: TAKE ONE CAPSULE BY MOUTH ONCE A WEEK Discharge Orders: Discharge ED (Routine); Ordered 09/20/22 Ordered By: Valentin Ramsey Referrals: Josefa Dumont FNP [Primary Care Provider] - 7-10 days Patient Instructions: Hypertension (ED) Activity Restrictions/Additional Instructions: Please keep a blood pressure log. Please take it with you to your primary care doctor within next 1 week for follow-up and further medical management. Please make for sure you are taking all your right medicines as prescribed. Coding Level of Care Code ED [employer] Professor for Brigitte Angulo
[2022-09-20] MEDS: cloNIDine 0.1 mg Tablet PO (12:32)
[2022-09-20] MEDS: labetalol 5 mg/mL SDV 20mL 20 MG IVP (13:25)
== END 2022-09-20 14:53 | disposition home or self-care (01) ==
PROVIDERS: Emergency Provider Emergency Medicine; PCP Nurse Practitioner
DX: I10 Essential (primary) hypertension (principal)
CPT/HCPCS: 96374; 99284; J3490

== ENCOUNTER → 2022-09-27 08:20 | Outpatient (BNVA) | payer MEDICARE, OTHER, SELFPAY | PROVIDERS: PCP Nurse Practitioner; Visit Provider Surgery | DX: C19 Malignant neoplasm of rectosigmoid junction (principal) | CPT/HCPCS: 99213 ==

== ENCOUNTER 2022-10-07 10:32 | Day surgery (SDC) | payer MEDICARE, OTHER, SELFPAY ==
[2022-10-06 08:39] VITALS: BMI 24.1
[2022-10-07] VITALS (7 sets, daily range): BP systolic 121–196; BP diastolic 64–98; PULSE 74–91; RESP 16–18; TEMP 36.6–36.8; O2SAT 95
[2022-10-07] MEDS: sodium chloride 0.9% 1,000 ML 30 ML IV (10:45)
--- NOTE | 2022-10-07 11:01 | W.PM.OPSUD ---
Surgery/Procedure H&P Update DATE OF PROCEDURE: October 07, 2022 DATE H&P PERFORMED: 09/27/22 H&P UPDATE INFORMATION: I have reviewed H&P completed within last 30 days, I have examined patient prior to procedure and No changes to prior documentation PLANNED PROCEDURE: Operation Date: 10/07/22 12:20 Proposed Procedures p [id number] port placement : C19(Not Applicable) - Paul Ny DO
--- NOTE | 2022-10-07 11:44 | SC_ITS ---
WS: [id number] Exam: C-arm FL for CVA [id number] Date/Time of Exam: 10/07/2022 11:44 AM Reason For Exam: port Anterior posterior C-arm images of the central and right chest submitted for evaluation. The images d epict a left subclavian port appearing to end in the expected region of the lower one third of the SV C. No other significant finding on this limited study.
--- NOTE | 2022-10-07 12:31 | ANES.PREANE2 ---
Pre-Anesthetic Assessment Height/Weight: Height 1.83 m Weight 80.739 kg Temp Pulse Resp BP Pulse Ox O2 Del Method 98.2 F 74 18 178/94 95 Room Air 10/07/22 10:48 10/07/22 10:48 10/07/22 10:48 10/07/22 10:48 10/07/22 10:48 10/07/22 10:48 Operation Date: 10/07/22 12:20 Proposed Procedures p [id number] port placement : C19(Not Applicable) - Paul Ny DO Familial anesthetic complications: none Was Beta Mary taken within 24 hours: Yes Was Clonidine taken within 24 hours: N/A Last intake: Intake Last Liquid Date 10/06/22 Last Liquid Time 20:00 Last Solid Date 10/06/22 Last Solid Time 20:00 Social No alcohol and No tobacco Exam alert, oriented x 3, clear to auscultation bilaterally and regular rate & rhythm Airway Submandibular: within normal limits Cervical ROM: within normal limits Mallampati: Class II CV/HEM Atrial Fibrillation, Hypertension and Peripheral Vascular Disease (AAA) Chronic Renal Insufficiency Metabolic Morbid Obesity Anesthetic Plan ASA status: 3 Anesthesia: MAC Medications/Allergies Home Medications Medication Instructions Recorded Confirmed Last Taken Type tamsulosin 0.4 mg capsule 0.4 mg PO BID #180 caps 10/22/21 10/06/22 10/06/22 Rx cholecalciferol (vitamin D3) 1,250 1,250 mcg PO Q7D PRN low labs 05/16/22 10/06/22 1 Month Ago History mcg (50,000 unit) capsule ~04/17/22 finasteride 5 mg tablet 5 mg PO DAILY 05/16/22 10/06/22 10/06/22 History apixaban 2.5 mg tablet 2.5 mg PO BID #180 tabs 05/25/22 10/06/22 10/04/22 Rx allopurinol 100 mg tablet 200 mg PO DAILY #60 tabs 07/11/22 10/06/22 10/06/22 Rx metoprolol succinate 25 mg 50 mg PO BID #180 tabs 08/08/22 10/06/22 10/07/22 Rx tablet,extended release 24 hr trazodone 50 mg tablet See Rx Instructions .Route 08/29/22 10/06/22 10/06/22 Rx .COMPLEX #30 tabs docusate sodium 100 mg capsule 100 mg PO BID PRN Constipation 09/14/22 10/06/22 Unknown History mupirocin 2 % topical ointment 1 applic topical BID #15 grams 09/14/22 10/06/22 Unknown Rx atorvastatin 20 mg tablet 20 mg PO DAILY #30 tabs 09/21/22 10/06/22 10/06/22 Rx buspirone 5 mg tablet 5 mg PO DAILY #30 tabs 09/21/22 10/06/22 10/05/22 Rx lisinopril 30 mg tablet 30 mg PO DAILY #30 tabs 09/21/22 10/06/22 10/06/22 Rx Allergies Allergy/AdvReac Type Severity Reaction Status Date / Time No Known Allergies Allergy Verified 09/27/22 08:22 REPLACED BY [facility] Anesthesia Medical History Abdominal aortic aneurysm (AAA) 3.0 cm to 5.5 cm in diameter in male Abnormal findings on diagnostic imaging of other abdominal regions, including retroperitoneum Adenocarcinoma of rectosigmoid junction Atrial fibrillation BPH with obstruction/lower urinary tract symptoms Cancer of sigmoid colon Epididymitis Essential hypertension Gastric antral vascular ectasia Gout H/O drainage of abscess 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 Hemoglobin decreased Lower respiratory infection Medication management Mixed hyperlipidemia Otitis externa Otitis media of both ears Recurrent UTI Saccular aneurysm Tubular adenoma of colon UTI (urinary tract infection), bacterial Viral upper respiratory infection Vitamin D deficiency Family History Family/Other CAD (coronary artery disease) Cancer lung Myocardial infarction Mother Myocardial infarction Stroke Social History Smoking and tobacco status: former smoker Quit status (tobacco): has quit using tobacco Year quit tobacco: 1975 Former quit date comment: smoked x4 years Second hand smoke exposure: No Smoking risk assessment/counseling performed?: No Alcohol intake: current Alcohol intake frequency: holidays/special occasions only Desire information about alcohol rehabilitation?: No Counseling given: No Substance/Drug Use: never Desire information about substance/drug rehabilitation?: No Counseling given: No Household members: spouse Marital status: Data Anesthesia Cardiac Studies: No Data to Display
[2022-10-07] MEDS: ceFAZolin 2,000 MG in sodium chloride 0.9% (plus) 50 ML 100 MG IV (12:39)
[2022-10-07] MEDS: lidocaine-epi 2% 20 mL INJ INJECTION (12:58)
[2022-10-07] MEDS: heparin, porcine 1,000 unit/mL INJ 10 mL 10000 UNIT XX (13:11)
--- NOTE | 2022-10-07 13:28 | XR_ITS ---
WS: [id number] CHEST XRAY TECHNIQUE: Portable chest. CLINICAL INFORMATION: post port placement COMPARISON: [id number] FINDINGS: LEFT Port-A-Cath placement with tip slightly curled in the distal innominate. Recommend rep eat radiograph with lateral view to exclude azygous or intercostal placement. No visualized pneumotho rax. Heart: Cardiomegaly. Aortic calcification. Lungs: Lungs are clear. No consolidation or pleural effusion. Bones: Hypertrophic changes thoracic spine. XR/XR chest 1V portable [id number] IMPRESSION: LEFT Port-A-Cath placement with tip slightly curled in the distal innominate. R ecommend repeat radiograph with lateral view to exclude azygous arch or interco stal placement. Notified Paul Ny DO at 10/07/2022 2:04 PM.
--- NOTE | 2022-10-07 13:37 | P.OP_ITS ---
Operative Report Date of procedure: October 07, 2022 Pre-op diagnosis: Colon cancer Post-op diagnosis: same Procedure done: Mediport placement Implants: PowerPort Surgeon: Dr. Paul Ny, DO Anesthesia: MAC Estimated blood loss (mL): 5 Complications: None apparent Brief History: This very pleasant 76-year-old gentleman who presented to my office needing chemotherapy port access due to his colon cancer. Mediport placement was indicated. The risk and benefits were explained and documented. Procedure: They put another order I will do right now things the patient was taken to the operating room and placed supine on the operating room table. All bony prominences were padded. She was given IV sedation and monitored throughout the case by the anesthesia personnel. SCDs were placed and turned on. The arms were tucked to the side. Patient received Ancef 2 g preoperatively IV. The bilateral chest wall was prepped and draped in usual sterile fashion using chlorhexidine base prep. Sterile drapes were applied. We did procedure pause prior to beginning. An 18 gauge needle was placed in the left subclavian vein. Dark, nonpulsatile blood was aspirated. A guidewire was placed through the needle centrally toward the atrial/vena caval junction. Fluoroscopy visualized good placement. The needle was removed and the guidewire was clipped to the drape with a hemostat. Further local anesthetic was infiltrated in the soft tissues of the left chest wall and a #15 blade was used to make a horizontal skin incision. A subcutaneous Mediport pocket was created using Bovie cautery, dissecting down through the skin and subcutaneous tissues. Meticulous hemostasis was achieved. The Mediport was sutured in position using 3-0 vicryl suture x2 stitches. A #15 blade was used to make a small skin mary ellen around the guidewire insertion area. The Mediport tubing was tunneled through the subcutaneous tissues up to th e needle insertion location. A dilator with a peel-away sheath was placed over the guidewire and placed centrally. After measuring the Mediport tubing was cut to length so that the tip would end at the atrial/vena caval junction. The inner cannula and the guidewire were removed, leaving the dilator sheath in place. The Mediport was flushed. The tip of the catheter was inserted through the peel-away sheath and the peel-away sheath removed in the standard fashion. The Mediport was accessed with a straight Blas needle and dark, nonpulsatile blood was aspirated and flushed using heparinized saline to hep-lock the Mediport. Final fluoroscopy visualization showed no kink in the catheter and the tip of the Mediport tubing near the atrial/vena caval junction. Both skin incisions were thoroughly irrigated and suctioned dry. Meticulous hemostasis noted. The dermis was approximated with 3-0 Vicryl in an interrupted fashion. Skin was closed with Dermabond. Patient was awakened from anesthesia and transferred via her cart to the recovery room in stable condition. All needle, sponge, and instrument counts were correct per the operating personnel x2 counts.
--- NOTE | 2022-10-07 13:57 | XR_ITS ---
WS: [id number] PROCEDURE: XR chest 2V* [id number] CLINICAL INFORMATION: post post COMPARISON: Earlier today FINDINGS: LEFT central venous catheter projects posteriorly on the lateral view typical for azygos vein. Recomm end repositioning. No pneumothorax. XR/XR chest 2V* [id number] IMPRESSION: LEFT central venous catheter projects posteriorly on the lateral view in the az ygos vein. Recommend repositioning. Discussed with Paul Ny DO at 10/07/2022 2:27 PM.
--- NOTE | 2022-10-07 14:09 | ANE.PACU2 ---
Inpatient post-anesthesia follow up: Airway intact: Yes Vital signs: Temperature 98.1 F Pulse Rate 90 Respiratory Rate 18 Blood Pressure 176/90 Pulse Oximetry 95 Oxygen Delivery Me thod Room Air Oxygen Flow Rate Fraction of Inspir ed Oxygen Hydration adequate: Yes Nausea and vomiting: No Pain level: 2 Mental status: Baseline
[2022-10-07] MEDS: HYDROcodone-acetaminophen 5-325 mg Tablet 1 TAB PO (14:27)
--- NOTE | 2022-10-07 14:53 | ANES.PAUD2 ---
Pre-Anesthetic Update Pre-Anesthetic Assessment: Date of Surgery/Procedure: 10/07/22 Proposed Procedure: Operation Date: 10/07/22 12:20 Proposed Procedures p [id number] port placement : C19(Not Applicable) - Paul Ny, DO Operation Date: 10/07/22 15:00 Proposed Procedures p Portacath Revision(Not Applicable) - Paul Ny, DO Any changes to Pre-Anesthetic Assessment?: No Last Intake: Intake Last Liquid Date 10/06/22 Last Liquid Time 20:00 Last Solid Date 10/06/22 Last Solid Time 20:00 Vitals: Temperature 98.1 F 10/07/22 13:42 Temperature Source Temporal Artery S can 10/07/22 13:42 Pulse Rate 89 10/07/22 14:29 Pulse Rhythm Regular 10/07/22 10:48 Pulse Strength 3+ Normal 10/07/22 10:48 Respiratory Rate 18 10/07/22 14:29 Blood Pressure 167/98 10/07/22 14:29 Blood Pressure Kaylin n 121 10/07/22 14:29 Pulse Oximetry 95 10/07/22 14:29 Oxygen Delivery Me thod Room Air 10/07/22 14:29 Exam: Pre-Anes Outpt Exam: alert, oriented x 3, clear to auscultation bilaterally and regular rate & rhythm Other Pertinent Information: Other Pertinent Information: Venous catheter malpositioned. Cardiac Studies: No Data to Display
--- NOTE | 2022-10-07 15:21 | XR_ITS ---
WS: [id number] CHEST XRAY TECHNIQUE: Portable chest. CLINICAL INFORMATION: port revision COMPARISON: Earlier today FINDINGS: Central venous catheter repositioned now with tip extending into the distal SVC. No pneumothorax. Sta ble cardiomegaly. XR/XR chest 1V portable [id number] IMPRESSION: Central venous catheter repositioned now with tip extending into the distal SVC Discussed with Paul Ny DO at 10/07/2022 3:37 PM.
[2022-10-07] MEDS: heparin, porcine 1,000 unit/mL INJ 10 mL 5000 UNIT IRRIGATION (15:35)
--- NOTE | 2022-10-07 16:15 | SUR.PHASEII ---
Dr. Ny manually manipulated part a cath. Post manipulation it was in the correct placement per xray. Ok'd per dr Ny to discharge home. Pt has no c/o pain, gauze placed other cath site where it had been punctured during procedure.
== END 2022-10-07 16:05 | disposition home or self-care (01) ==
PROVIDERS: PCP Nurse Practitioner; Visit Provider Surgery
PROC: (CPT 36561; principal; 2022-10-07 12:10)
DX: C19 Malignant neoplasm of rectosigmoid junction (principal); I48.91 Unspecified atrial fibrillation; I73.9 Peripheral vascular disease, unspecified; I12.9 Hypertensive chronic kidney disease with stage 1 through stage 4 chronic kidney disease, or unspecified chronic kidney disease; N18.9 Chronic kidney disease, unspecified
CPT/HCPCS: 36561; 71045; 71046; 76000; 77001; C1788; J0330; J0690; J1100; J1644; J2405; J2704; J3010; J7030

== ENCOUNTER 2022-10-10 07:52 | Oncology outpatient (recurring) (ONCR) | payer MEDICARE, OTHER, SELFPAY ==
[2022-09-19 08:29] LABS: Basophils % 0.5 %; Eosinophils # 0.1 10^3/uL (0.0-0.8); Eosinophils % 1.4 %; Hematocrit 39.2 % (42.0-52.0); Hemoglobin 12.5 g/dL (11.7-16.6); Lymphocytes % 15.4 %; Mean Corpuscular HGB Conc 31.9 g/dL (30.0-36.0); Mean Corpuscular Hemoglobin 28.5 pg (28.0-34.0); Mean Corpuscular Volume 89.5 fl (80-94); Mean Platelet Volume 10.3 fL (7.4-10.4); Monocytes # 0.4 10^3/uL (0.2-0.9); Monocytes % 6.7 %; Neutrophils # 4.97 10^3/uL (1.8-7.7); Neutrophils % 75.7 %; Nucleated Red Blood Cells % 0 %; Platelet Count 168 10^3/cmm (130-400); Red Blood Count 4.38 10^6/uL (4.1-5.3); White Blood Count 6.6 10^3/uL (4.0-10.0)
[2022-09-19 08:39] VITALS: BP 168/97; PULSE 61; RESP 18; TEMP 36.2; O2SAT 98
[2022-09-19 09:10] LABS: Alanine Aminotransferase 8 U/L (0-41); Albumin Level 4.1 g/dL (3.5-5.2); Alkaline Phosphatase 106 U/L (40-130); Anion Gap 13.2 (5-19); Aspartate Amino Transferase 14 U/L (0-40); Blood Urea Nitrogen 16 mg/dL (8-23); Calcium 9.1 mg/dL (8.5-10.5); Carbon Dioxide 28 mmol/L (22-29); Chloride 101 mmol/L (98-107); Globulin 2.1 g/dL (1.3-4.6); Glucose 95 mg/dL (65-115); Osmolality Calculated 287 mOsm/kg (285-295); Potassium 4.2 mmol/L (3.5-5.1); Sodium 138 mmol/L (136-145); Total Bilirubin 0.8 mg/dL (0.15-1.2); Total Protein 6.2 g/dL (6.6-8.7)
[2022-10-10 07:50] VITALS: BP 187/93; PULSE 71; RESP 18; TEMP 36.4; O2SAT 97
[2022-10-10 08:06] LABS: Basophils # 0.1 10^3/uL (0.0-0.1); Basophils % 0.7 %; Eosinophils % 0.6 %; Hematocrit 39.1 % (42.0-52.0); Hemoglobin 12.8 g/dL (11.7-16.6); Lymphocytes # 0.8 10^3/uL (0.8-4.8); Lymphocytes % 11.6 %; Mean Corpuscular HGB Conc 32.7 g/dL (30.0-36.0); Mean Corpuscular Hemoglobin 29.4 pg (28.0-34.0); Mean Corpuscular Volume 89.7 fl (80-94); Mean Platelet Volume 9.8 fL (7.4-10.4); Monocytes # 0.4 10^3/uL (0.2-0.9); Neutrophils # 5.83 10^3/uL (1.8-7.7); Neutrophils % 80.7 %; Nucleated Red Blood Cells % 0 %; Platelet Count 169 10^3/cmm (130-400); Red Blood Count 4.36 10^6/uL (4.1-5.3); Red Cell Distribution Width 15.1 % (12.1-15.1); White Blood Count 7.2 10^3/uL (4.0-10.0)
[2022-10-10 08:32] LABS: Alanine Aminotransferase 7 U/L (0-41); Albumin Level 4.2 g/dL (3.5-5.2); Alkaline Phosphatase 105 U/L (40-130); Anion Gap 13.5 (5-19); Aspartate Amino Transferase 21 U/L (0-40); Blood Urea Nitrogen 11 mg/dL (8-23); Calcium 9.2 mg/dL (8.5-10.5); Carbon Dioxide 28 mmol/L (22-29); Chloride 104 mmol/L (98-107); Globulin 2.1 g/dL (1.3-4.6); Glucose 119 mg/dL (65-115); Osmolality Calculated 293 mOsm/kg (285-295); Potassium 4.5 mmol/L (3.5-5.1); Sodium 141 mmol/L (136-145); Total Bilirubin 0.9 mg/dL (0.15-1.2); Total Protein 6.3 g/dL (6.6-8.7)
[2022-10-10] MEDS: dextrose 5% 250 ML 75 ML IV (11:54)
[2022-10-10] MEDS: palonosetron 0.25 mg/5 mL SDV IVP (11:55)
[2022-10-10 12:01] LABS: Carcinoembryonic Antigen 10.8 ng/mL (0.0-4.7)
[2022-10-10] MEDS: leucovorin 980 MG in dextrose 5% 250 ML 62.5 MG IV (13:02)
[2022-10-10 16:14] VITALS: BP 186/92; PULSE 99; RESP 18; TEMP 36.2; O2SAT 98
== END 2022-10-14 23:59 | disposition home or self-care (01) ==
PROVIDERS: Nurse Practitioner Family; PCP Nurse Practitioner; Visit Provider Internal Medicine Hematology & Oncology
DX: C18.7 Malignant neoplasm of sigmoid colon (principal); Z51.11 Encounter for antineoplastic chemotherapy; Z90.49 Acquired absence of other specified parts of digestive tract; I10 Essential (primary) hypertension; Z95.828 Presence of other vascular implants and grafts; Z79.899 Other long term (current) drug therapy; R97.0 Elevated carcinoembryonic antigen [CEA]
CPT/HCPCS: 36415; 80053; 82378; 85025; 96367; 96368; 96375; 96413; 96415; 96416; 99214; 99215; J0640; J1100; J1642; J2469; J7060; J9190; J9263

== ENCOUNTER → 2022-10-17 09:17 | Outpatient (BNVA) | payer MEDICARE, OTHER, SELFPAY | PROVIDERS: PCP Nurse Practitioner; Visit Provider Nurse Practitioner Family | DX: C18.7 Malignant neoplasm of sigmoid colon (principal); Z90.49 Acquired absence of other specified parts of digestive tract; C78.5 Secondary malignant neoplasm of large intestine and rectum; Z95.828 Presence of other vascular implants and grafts | CPT/HCPCS: 99213 ==

== ENCOUNTER → 2022-10-25 08:37 | Outpatient (BNVA) | payer MEDICARE, OTHER, SELFPAY | PROVIDERS: PCP Nurse Practitioner; Visit Provider Surgery | DX: Z95.828 Presence of other vascular implants and grafts (principal) | CPT/HCPCS: 99213 ==

== ENCOUNTER 2022-11-10 13:30 | Oncology outpatient (recurring) (ONCR) | payer MEDICARE, OTHER, SELFPAY ==
[2022-10-17 09:23] VITALS: BP 155/78; PULSE 82; RESP 18; TEMP 36.4; O2SAT 98
[2022-10-17 09:41] LABS: Basophils % 0.6 %; Eosinophils # 0.1 10^3/uL (0.0-0.8); Eosinophils % 1.9 %; Hematocrit 37.4 % (42.0-52.0); Hemoglobin 12.2 g/dL (11.7-16.6); Lymphocytes # 0.9 10^3/uL (0.8-4.8); Lymphocytes % 13.9 %; Mean Corpuscular HGB Conc 32.6 g/dL (30.0-36.0); Mean Corpuscular Hemoglobin 28.8 pg (28.0-34.0); Mean Corpuscular Volume 88.2 fl (80-94); Mean Platelet Volume 10.1 fL (7.4-10.4); Monocytes # 0.4 10^3/uL (0.2-0.9); Monocytes % 6.5 %; Neutrophils # 4.89 10^3/uL (1.8-7.7); Neutrophils % 75.7 %; Nucleated Red Blood Cells % 0 %; Platelet Count 169 10^3/cmm (130-400); Red Blood Count 4.24 10^6/uL (4.1-5.3); Red Cell Distribution Width 14.9 % (12.1-15.1); White Blood Count 6.5 10^3/uL (4.0-10.0)
[2022-10-17 10:07] LABS: Alanine Aminotransferase 7 U/L (0-41); Albumin Level 4.1 g/dL (3.5-5.2); Alkaline Phosphatase 95 U/L (40-130); Anion Gap 11.8 (5-19); Aspartate Amino Transferase 16 U/L (0-40); Blood Urea Nitrogen 15 mg/dL (8-23); Carbon Dioxide 28 mmol/L (22-29); Chloride 101 mmol/L (98-107); Glucose 101 mg/dL (65-115); Osmolality Calculated 283 mOsm/kg (285-295); Potassium 4.8 mmol/L (3.5-5.1); Sodium 136 mmol/L (136-145); Total Bilirubin 0.7 mg/dL (0.15-1.2); Total Protein 6.1 g/dL (6.6-8.7)
[2022-10-24 07:49] VITALS: BP 178/73; PULSE 73; RESP 18; TEMP 36.4; O2SAT 97
[2022-10-24 08:00] LABS: Basophils % 0.5 %; Eosinophils # 0.1 10^3/uL (0.0-0.8); Eosinophils % 1.3 %; Hematocrit 34.9 % (42.0-52.0); Hemoglobin 11.3 g/dL (11.7-16.6); Lymphocytes # 0.9 10^3/uL (0.8-4.8); Lymphocytes % 13.9 %; Mean Corpuscular HGB Conc 32.4 g/dL (30.0-36.0); Mean Corpuscular Hemoglobin 29.1 pg (28.0-34.0); Mean Corpuscular Volume 89.9 fl (80-94); Mean Platelet Volume 9.9 fL (7.4-10.4); Monocytes # 0.5 10^3/uL (0.2-0.9); Monocytes % 7.2 %; Neutrophils % 76.8 %; Nucleated Red Blood Cells % 0 %; Platelet Count 144 10^3/cmm (130-400); Red Blood Count 3.88 10^6/uL (4.1-5.3); Red Cell Distribution Width 14.9 % (12.1-15.1); White Blood Count 6.3 10^3/uL (4.0-10.0)
[2022-10-24 08:23] LABS: Alanine Aminotransferase 6 U/L (0-41); Albumin Level 3.9 g/dL (3.5-5.2); Alkaline Phosphatase 97 U/L (40-130); Anion Gap 11.4 (5-19); Aspartate Amino Transferase 16 U/L (0-40); Blood Urea Nitrogen 16 mg/dL (8-23); Calcium 8.4 mg/dL (8.5-10.5); Carbon Dioxide 28 mmol/L (22-29); Chloride 100 mmol/L (98-107); Globulin 1.8 g/dL (1.3-4.6); Glucose 98 mg/dL (65-115); Osmolality Calculated 281 mOsm/kg (285-295); Potassium 4.4 mmol/L (3.5-5.1); Sodium 135 mmol/L (136-145); Total Bilirubin 0.5 mg/dL (0.15-1.2); Total Protein 5.7 g/dL (6.6-8.7)
[2022-10-24] MEDS: dextrose 5% 250 ML 75 ML IV (11:17)
[2022-10-24] MEDS: palonosetron 0.25 mg/5 mL SDV IVP (11:21)
[2022-10-24] MEDS: leucovorin 980 MG in dextrose 5% 250 ML 62.5 MG IV (11:53)
[2022-10-24 15:45] VITALS: BP 176/81; PULSE 80; RESP 16; TEMP 36.3; O2SAT 96
[2022-11-07 07:51] VITALS: BP 171/82; PULSE 57; RESP 17; TEMP 36.2; O2SAT 99
[2022-11-07 08:10] LABS: Basophils % 0.4 %; Eosinophils % 0.8 %; Hematocrit 34.9 % (42.0-52.0); Hemoglobin 11.4 g/dL (11.7-16.6); Lymphocytes # 0.7 10^3/uL (0.8-4.8); Lymphocytes % 12.8 %; Mean Corpuscular HGB Conc 32.7 g/dL (30.0-36.0); Mean Corpuscular Hemoglobin 29.5 pg (28.0-34.0); Mean Corpuscular Volume 90.4 fl (80-94); Mean Platelet Volume 9.9 fL (7.4-10.4); Monocytes # 0.4 10^3/uL (0.2-0.9); Monocytes % 7.9 %; Neutrophils # 4.14 10^3/uL (1.8-7.7); Neutrophils % 77.7 %; Nucleated Red Blood Cells % 0 %; Platelet Count 121 10^3/cmm (130-400); Red Blood Count 3.86 10^6/uL (4.1-5.3); Red Cell Distribution Width 14.7 % (12.1-15.1); White Blood Count 5.3 10^3/uL (4.0-10.0)
[2022-11-07 08:35] LABS: Alanine Aminotransferase 8 U/L (0-41); Albumin Level 3.9 g/dL (3.5-5.2); Alkaline Phosphatase 95 U/L (40-130); Anion Gap 11.2 (5-19); Aspartate Amino Transferase 18 U/L (0-40); Blood Urea Nitrogen 13 mg/dL (8-23); Calcium 8.8 mg/dL (8.5-10.5); Carbon Dioxide 27 mmol/L (22-29); Chloride 106 mmol/L (98-107); Glucose 101 mg/dL (65-115); Osmolality Calculated 290 mOsm/kg (285-295); Potassium 4.2 mmol/L (3.5-5.1); Sodium 140 mmol/L (136-145); Total Bilirubin 0.5 mg/dL (0.15-1.2); Total Protein 5.9 g/dL (6.6-8.7)
[2022-11-08] MEDS: dextrose 5% 250 ML 75 ML IV (11:24)
[2022-11-08] MEDS: palonosetron 0.25 mg/5 mL SDV IVP (11:27)
[2022-11-08] MEDS: leucovorin 980 MG in dextrose 5% 250 ML 87 MG IV (12:22)
[2022-11-08 15:48] VITALS: BP 187/72; PULSE 59; RESP 18; TEMP 36.2; O2SAT 96
== END 2022-11-14 23:59 | disposition home or self-care (01) ==
PROVIDERS: Nurse Practitioner Family; PCP Nurse Practitioner; Visit Provider Internal Medicine Hematology & Oncology
DX: Z53.9 Procedure and treatment not carried out, unspecified reason (principal)
CPT/HCPCS: 36591; 80053; 85025; 96367; 96368; 96375; 96413; 96415; 96416; 96417; 99213; 99214; J0640; J1100; J1642; J2469; J7060; J9190; J9263

== ENCOUNTER → 2022-11-17 10:42 | Outpatient (BNVA) | payer MEDICARE, OTHER, SELFPAY | PROVIDERS: PCP Nurse Practitioner; Visit Provider Nurse Practitioner | DX: E78.2 Mixed hyperlipidemia (principal); I10 Essential (primary) hypertension | CPT/HCPCS: 80053; 80061 ==

== ENCOUNTER 2022-12-06 09:00 | Oncology outpatient (recurring) (ONCR) | payer MEDICARE, OTHER, SELFPAY ==
[2022-11-22 07:35] VITALS: BMI 36.1
[2022-11-22 07:37] VITALS: BP 155/73; PULSE 60; RESP 18; TEMP 36.4; O2SAT 97
[2022-11-22 07:52] LABS: Basophils % 0.7 %; Eosinophils % 0.7 %; Hematocrit 36.6 % (42.0-52.0); Hemoglobin 11.9 g/dL (11.7-16.6); Lymphocytes # 0.9 10^3/uL (0.8-4.8); Lymphocytes % 16.2 %; Mean Corpuscular HGB Conc 32.5 g/dL (30.0-36.0); Mean Corpuscular Hemoglobin 29.4 pg (28.0-34.0); Mean Corpuscular Volume 90.4 fl (80-94); Mean Platelet Volume 10.3 fL (7.4-10.4); Monocytes # 0.5 10^3/uL (0.2-0.9); Monocytes % 9.1 %; Neutrophils # 3.89 10^3/uL (1.8-7.7); Neutrophils % 72.6 %; Nucleated Red Blood Cells % 0 %; Platelet Count 137 10^3/cmm (130-400); Red Blood Count 4.05 10^6/uL (4.1-5.3); White Blood Count 5.4 10^3/uL (4.0-10.0)
[2022-11-22 08:39] LABS: Carcinoembryonic Antigen 18.4 ng/mL (0.0-4.7)
[2022-11-22 08:50] LABS: Alanine Aminotransferase 17 U/L (0-41); Alkaline Phosphatase 88 U/L (40-130); Anion Gap 13.5 (5-19); Aspartate Amino Transferase 25 U/L (0-40); Blood Urea Nitrogen 12 mg/dL (8-23); Calcium 8.8 mg/dL (8.5-10.5); Carbon Dioxide 27 mmol/L (22-29); Chloride 106 mmol/L (98-107); Glucose 105 mg/dL (65-115); Osmolality Calculated 294 mOsm/kg (285-295); Potassium 4.5 mmol/L (3.5-5.1); Sodium 142 mmol/L (136-145); Total Bilirubin 0.6 mg/dL (0.15-1.2)
[2022-11-22] MEDS: dextrose 5% 250 ML 75 ML IV (11:02)
[2022-11-22] MEDS: palonosetron 0.25 mg/5 mL SDV IVP (11:03)
[2022-11-22] MEDS: leucovorin 960 MG in dextrose 5% 250 ML 86.5 MG IV (12:15)
[2022-11-22] MEDS: SODIUM CHLORIDE IV (14:46)
[2022-11-22] MEDS: ELASTOMERIC PUMP PUMP IV (14:46)
[2022-11-22] MEDS: FLUOROURACIL IV (14:46)
[2022-11-24 14:29] VITALS: BP 134/73; PULSE 71; RESP 16; TEMP 36.4; O2SAT 96
[2022-12-05 11:28] VITALS: BP 147/73; PULSE 55; RESP 18; TEMP 36.6; O2SAT 98; BMI 36.3
[2022-12-05 11:44] LABS: Basophils % 0.7 %; Eosinophils % 0.9 %; Hematocrit 35.4 % (42.0-52.0); Hemoglobin 11.5 g/dL (11.7-16.6); Lymphocytes # 0.9 10^3/uL (0.8-4.8); Lymphocytes % 19.4 %; Mean Corpuscular HGB Conc 32.5 g/dL (30.0-36.0); Mean Corpuscular Hemoglobin 29.2 pg (28.0-34.0); Mean Corpuscular Volume 89.8 fl (80-94); Mean Platelet Volume 10.3 fL (7.4-10.4); Monocytes # 0.5 10^3/uL (0.2-0.9); Monocytes % 10.8 %; Neutrophils # 3.08 10^3/uL (1.8-7.7); Nucleated Red Blood Cells % 0 %; Platelet Count 100 10^3/cmm (130-400); Red Blood Count 3.94 10^6/uL (4.1-5.3); Red Cell Distribution Width 15.3 % (12.1-15.1); White Blood Count 4.5 10^3/uL (4.0-10.0)
[2022-12-05 12:02] LABS: Alanine Aminotransferase 22 U/L (0-41); Alkaline Phosphatase 84 U/L (40-130); Anion Gap 11.5 (5-19); Aspartate Amino Transferase 25 U/L (0-40); Blood Urea Nitrogen 13 mg/dL (8-23); Carbon Dioxide 28 mmol/L (22-29); Chloride 106 mmol/L (98-107); Globulin 1.7 g/dL (1.3-4.6); Glucose 87 mg/dL (65-115); Osmolality Calculated 291 mOsm/kg (285-295); Potassium 4.5 mmol/L (3.5-5.1); Sodium 141 mmol/L (136-145); Total Bilirubin 0.5 mg/dL (0.15-1.2); Total Protein 5.7 g/dL (6.6-8.7)
[2022-12-06] MEDS: dextrose 5% 250 ML 75 ML IV (10:42)
[2022-12-06] MEDS: palonosetron 0.25 mg/5 mL SDV IVP (10:43)
[2022-12-06] MEDS: leucovorin 980 MG in dextrose 5% 250 ML 62.5 MG IV (11:36)
[2022-12-06 15:00] VITALS: BP 169/71; PULSE 63; RESP 16; TEMP 36.1; O2SAT 97
== END 2022-12-15 23:59 | disposition home or self-care (01) ==
PROVIDERS: Internal Medicine Hematology & Oncology; PCP Nurse Practitioner; Visit Provider Internal Medicine Medical Oncology
DX: C18.7 Malignant neoplasm of sigmoid colon (principal); Z45.2 Encounter for adjustment and management of vascular access device; Z79.899 Other long term (current) drug therapy
CPT/HCPCS: 36591; 80053; 82378; 85025; 96367; 96368; 96374; 96375; 96413; 96415; 96416; 96523; 99214; J0640; J1100; J1642; J2469; J7060; J9190; J9263

== ENCOUNTER 2023-01-03 07:45 | Oncology outpatient (recurring) (ONCR) | payer MEDICARE, OTHER, SELFPAY ==
[2022-12-20 07:46] VITALS: BMI 36.7
[2022-12-20 07:48] VITALS: BP 174/69; PULSE 68; RESP 18; TEMP 36.2; O2SAT 97
[2022-12-20 08:02] LABS: Basophils % 0.9 %; Eosinophils # 0.1 10^3/uL (0.0-0.8); Eosinophils % 1.1 %; Hematocrit 35.7 % (37-53); Lymphocytes # 0.8 10^3/uL (0.8-4.8); Lymphocytes % 18.6 %; Mean Corpuscular HGB Conc 32.5 g/dL (30-55); Mean Corpuscular Hemoglobin 29.5 pg (27-33); Mean Corpuscular Volume 90.8 fl (82-101); Mean Platelet Volume 10.2 fL (7.4-10.4); Monocytes # 0.4 10^3/uL (0.2-0.9); Monocytes % 9.2 %; Neutrophils # 3.11 10^3/uL (1.8-7.7); Neutrophils % 69.5 %; Nucleated Red Blood Cells % 0 %; Platelet Count 105 10^3/cmm (157-399); Red Blood Count 3.93 10^6/uL (3.85-5.65); Red Cell Distribution Width 15.4 % (12.1-15.1); White Blood Count 4.47 10^3/uL (3.29-11.43)
[2022-12-20 08:29] LABS: Carcinoembryonic Antigen 13.3 ng/mL (0.0-4.7)
[2022-12-20 08:40] LABS: Alanine Aminotransferase 28 U/L (0-41); Albumin Level 3.9 g/dL (3.5-5.2); Alkaline Phosphatase 92 U/L (40-130); Anion Gap 11.1 (5-19); Aspartate Amino Transferase 32 U/L (0-40); Blood Urea Nitrogen 18 mg/dL (8-23); Calcium 8.8 mg/dL (8.5-10.5); Carbon Dioxide 27 mmol/L (22-29); Chloride 108 mmol/L (98-107); Glucose 139 mg/dL (65-115); Osmolality Calculated 298 mOsm/kg (285-295); Potassium 4.1 mmol/L (3.5-5.1); Sodium 142 mmol/L (136-145); Total Bilirubin 0.5 mg/dL (0.15-1.2); Total Protein 5.9 g/dL (6.6-8.7)
[2022-12-20] MEDS: palonosetron 0.25 mg/5 mL SDV IVP (10:08)
[2022-12-20] MEDS: dextrose 5% 250 ML 75 ML IV (10:08)
[2022-12-20] MEDS: leucovorin 980 MG in dextrose 5% 250 ML 62.5 MG IV (10:39)
[2022-12-20 13:20] VITALS: BP 174/75; PULSE 59; RESP 17; TEMP 36.4; O2SAT 97
[2023-01-03 07:52] VITALS: BP 157/67; PULSE 62; RESP 16; TEMP 36.2; O2SAT 98
[2023-01-03 08:12] LABS: Basophils % 0.7 %; Eosinophils % 0.7 %; Hematocrit 33.2 % (37-53); Lymphocytes # 0.7 10^3/uL (0.8-4.8); Lymphocytes % 15.9 %; Mean Corpuscular HGB Conc 32.8 g/dL (30-55); Mean Corpuscular Hemoglobin 29.8 pg (27-33); Mean Corpuscular Volume 90.7 fl (82-101); Mean Platelet Volume 10.6 fL (7.4-10.4); Monocytes # 0.5 10^3/uL (0.2-0.9); Monocytes % 13.2 %; Neutrophils # 2.83 10^3/uL (1.8-7.7); Nucleated Red Blood Cells % 0 %; Platelet Count 88 10^3/cmm (157-399); Red Blood Count 3.66 10^6/uL (3.85-5.65); Red Cell Distribution Width 15.5 % (12.1-15.1)
[2023-01-03 08:30] LABS: Alanine Aminotransferase 20 U/L (0-41); Albumin Level 3.7 g/dL (3.5-5.2); Alkaline Phosphatase 97 U/L (40-130); Anion Gap 11.9 (5-19); Aspartate Amino Transferase 27 U/L (0-40); Blood Urea Nitrogen 13 mg/dL (8-23); Calcium 8.7 mg/dL (8.5-10.5); Carbon Dioxide 28 mmol/L (22-29); Chloride 106 mmol/L (98-107); Globulin 2.1 g/dL (1.3-4.6); Glucose 135 mg/dL (65-115); Osmolality Calculated 296 mOsm/kg (285-295); Potassium 3.9 mmol/L (3.5-5.1); Sodium 142 mmol/L (136-145); Total Bilirubin 0.5 mg/dL (0.15-1.2); Total Protein 5.8 g/dL (6.6-8.7)
[2023-01-03 08:36] LABS: Creatinine Clr Calc Pharmacy 106.9707
== END 2023-01-14 23:59 | disposition home or self-care (01) ==
PROVIDERS: Nurse Practitioner Family; PCP Nurse Practitioner; Visit Provider Internal Medicine Medical Oncology
DX: Z45.2 Encounter for adjustment and management of vascular access device (principal); C18.7 Malignant neoplasm of sigmoid colon; C19 Malignant neoplasm of rectosigmoid junction; Z95.828 Presence of other vascular implants and grafts; C77.9 Secondary and unspecified malignant neoplasm of lymph node, unspecified
CPT/HCPCS: 80053; 82378; 85025; 96367; 96368; 96375; 96413; 96415; 96416; 99214; J0640; J1100; J1642; J2469; J7060; J9190; J9263

== ENCOUNTER 2023-01-13 13:42 | Outpatient (CLI) | payer MEDICARE, OTHER, SELFPAY ==
[2023-01-13] MEDS: iohexol 350 mg/mL 500 mL Btl (per mL) PO (13:52)
[2023-01-13] MEDS: iohexol 350 mg/mL 500 mL Btl (per mL) IV (15:29)
--- NOTE | 2023-01-13 15:30 | CT_ITS ---
WS: [id number] CT CHEST, ABDOMEN AND PELVIS WITH CONTRAST HISTORY: Rectosigmoid adenocarcinoma, rising CEA TECHNIQUE: Contiguous 5 mm axial imaging performed through the chest, abdomen and pelvis with IV cont rast, oral contrast has been provided. Coronal and sagittal reformats chest. Coronal and sagittal ref ormats through the abdomen and pelvis. All CT scans at [facility] use at least one of these d ose optimization techniques: automated exposure control; mA and/or kV adjustment per patient size (in cludes targeted exams where dose is matched to clinical indication); or iterative reconstruction. CONTRAST: Omnipaque 350; 100 mL IV. DLP: 1623.04 mGy.cm COMPARISON: 11/14/[address]: No pulmonary nodule or mass. No pneumonia. Normal vascularity. No pericardial or pleural ef fusions. Heart is slightly enlarged. There is very mild bilateral pleural thickening and nodularity. Greatest throughout the LEFT thorax. No mediastinal or hilar adenopathy. Mild atherosclerosis aorta. Marked increase in the upper cervical thoracic kyphosis. Fusion across several of the vertebral constanza s at the cervicothoracic junction. There is advanced degenerative changes throughout the thoracic spi ne. Abdomen CT: Normal size liver. There are several low-attenuation masses throughout the liver. Some of these were present on the study from 2019. Others are new or become more conspicuous now because of contrast and different imaging technique. The largest measures 2.4 x 1.5 cm in the inferior RIGHT lob e of the liver. There are several scattered low-attenuation lesions within the liver which are too sm all to characterize. Gallbladder is contracted with mild diffuse wall thickening. Normal spleen. Nega tive pancreas and adrenal glands. Numerous bilateral renal cysts. Cysts range in size from subcentime ter to 8.0 cm. Heavy calcification throughout the abdominal aorta. There is marked calcification exte nding into the celiac axis and also the SMA. No obstruction at this time. Prior endovascular graft re pair abdominal aortic aneurysm. There is a small focal area of blush like enhancement within the thro mbus external to the graft at the bifurcation consistent with an endovascular leak. There are no prio r studies available for comparison. [place] aneurysm is increased in size from the distal aorta since 2019. Normal appearance of the stomach. No small bowel obstruction. Tortuous overlapping loops of colon wit h mild constipation. Anastomotic sutures are noted at the region of the rectum. No mass is identified or recurrence at the surgical site. No ascites. No adenopathy Pelvic CT: Enlarged prostate gland encroaching into the bladder. There is mild bladder wall thickenin g which is diffuse within the urinary bladder. No adenopathy. Increase in lumbar lordosis. Degenerative disc disease. IMPRESSION: 1. Rectosigmoid anastomosis appears intact. No recurrent mass is appreciated at this time. 2. No adenopathy within the chest, abdomen or pelvis. 3. No ascites. 4. Multiple low-attenuation masses within the liver. Some of these have been stable since 2020. Other s are new or more conspicuous. Some of these are too small to characterize. Early metastatic lesions are not completely excluded. 5. No pulmonary mass or nodule. 6. Contracted gallbladder with mild diffuse wall thickening. This can be seen with chronic or acute c holecystitis. 7. Bilateral renal cysts. 8. Status post endovascular graft repair of the abdominal aortic aneurysm. The [place] aneurysm has in creased in size since 2020 from 4.1 to 4.9 cm and there is a small endovascular leak. No prior studie s for comparison. This may be a known finding. Patient most likely is being evaluated by cardiothorac ic surgery at another medical facility.
== END 2023-01-13 13:43 | disposition home or self-care (01) ==
PROVIDERS: PCP Nurse Practitioner; Visit Provider Internal Medicine Medical Oncology
DX: C19 Malignant neoplasm of rectosigmoid junction (principal)
CPT/HCPCS: 71260; 74177; Q9967

== ENCOUNTER 2023-01-25 13:02 | Outpatient (CLI) | payer MEDICARE, OTHER, SELFPAY ==
--- NOTE | 2023-01-25 14:30 | MR_ITS ---
WS: [id number] MRI/MRCP OF THE ABDOMEN WITHOUT GADOLINIUM ENHANCEMENT TECHNIQUE: Coronal T2 Fase BH, Axial T2 Fase BH, Axial T2 FS BH, Zxial 3D Chavez BH, Axial DWI BH, 2D MRCP Radial BH, 3D MRCP (Resp), and Axial 3D Dyn BH Post sequences. CLINICAL INFORMATION: For evaluation of cystic lesions of liver COMPARISON: CT 01/13/2023 FINDINGS: Exam is limited due to respiratory motion artifact. Multiple T2 hyperintense lesions in both hepatic lobes correspond to the lesions seen on the recent C T. No suspicious enhancing lesions to indicate metastatic disease. Findings are compatible with numer ous hepatic cysts. Partially visualized aortic endograft. Bilateral renal cysts largest on the RIGHT measuring up to 6.7 x 8.1 cm. No hydronephrosis in either kidney. Adrenal glands appear normal. Fatty atrophy of the amb[place] creas. Portal vein and splenic vein appear patent. No other significant changes since the prior recen t cross-sectional imaging studies. Impression: Limited examination due to respiratory artifact. 1. Multiple T2 hyperintense hepatic lesions with imaging characteristics compatible with hepatic cys ts. No enhancing lesions to indicate metastatic disease. 2. No other significant changes compared to the prior recent studies.
== END 2023-01-25 13:03 | disposition home or self-care (01) ==
LOC: RAD 13:03
PROVIDERS: PCP Nurse Practitioner; Visit Provider Internal Medicine Medical Oncology
DX: C18.7 Malignant neoplasm of sigmoid colon (principal)
CPT/HCPCS: 74183; A9577

== ENCOUNTER 2023-02-14 08:30 | Oncology outpatient (recurring) (ONCR) | payer MEDICARE, OTHER, SELFPAY ==
[2023-01-16 13:09] VITALS: BP 170/79; PULSE 78; RESP 16; TEMP 36.7; O2SAT 96
[2023-01-16 13:26] LABS: Basophils % 0.5 %; Eosinophils % 0.7 %; Hematocrit 34.6 % (37-53); Lymphocytes # 0.8 10^3/uL (0.8-4.8); Lymphocytes % 19.6 %; Mean Corpuscular HGB Conc 32.9 g/dL (30-55); Mean Corpuscular Hemoglobin 30.3 pg (27-33); Mean Platelet Volume 9.9 fL (7.4-10.4); Monocytes # 0.3 10^3/uL (0.2-0.9); Monocytes % 8.2 %; Neutrophils # 2.91 10^3/uL (1.8-7.7); Neutrophils % 70.3 %; Nucleated Red Blood Cells % 0 %; Platelet Count 96 10^3/cmm (157-399); Red Blood Count 3.76 10^6/uL (3.85-5.65); Red Cell Distribution Width 16.1 % (12.1-15.1); White Blood Count 4.14 10^3/uL (3.29-11.43)
[2023-01-16 13:49] LABS: Alanine Aminotransferase 14 U/L (0-41); Albumin Level 3.8 g/dL (3.5-5.2); Alkaline Phosphatase 93 U/L (40-130); Anion Gap 12.1 (5-19); Aspartate Amino Transferase 27 U/L (0-40); Blood Urea Nitrogen 14 mg/dL (8-23); Calcium 8.5 mg/dL (8.5-10.5); Carbon Dioxide 27 mmol/L (22-29); Chloride 107 mmol/L (98-107); Creatinine Clr Calc Pharmacy 106.9707; Glucose 155 mg/dL (65-115); Osmolality Calculated 298 mOsm/kg (285-295); Potassium 4.1 mmol/L (3.5-5.1); Sodium 142 mmol/L (136-145); Total Bilirubin 0.5 mg/dL (0.15-1.2); Total Protein 5.8 g/dL (6.6-8.7)
[2023-01-16 14:19] LABS: Carcinoembryonic Antigen 12.8 ng/mL (0.0-4.7)
[2023-01-31 07:19] VITALS: BP 174/77; PULSE 54; RESP 16; TEMP 36.4; O2SAT 99
[2023-01-31 07:50] LABS: Basophils % 0.8 %; Eosinophils # 0.1 10^3/uL (0.0-0.8); Eosinophils % 1.3 %; Hematocrit 36.5 % (37-53); Lymphocytes # 0.8 10^3/uL (0.8-4.8); Lymphocytes % 15.3 %; Mean Corpuscular HGB Conc 32.3 g/dL (30-55); Mean Corpuscular Hemoglobin 30.3 pg (27-33); Mean Corpuscular Volume 93.6 fl (82-101); Mean Platelet Volume 9.8 fL (7.4-10.4); Monocytes # 0.4 10^3/uL (0.2-0.9); Monocytes % 7.8 %; Neutrophils # 3.89 10^3/uL (1.8-7.7); Neutrophils % 74.2 %; Nucleated Red Blood Cells % 0 %; Platelet Count 115 10^3/cmm (157-399); Red Cell Distribution Width 16.2 % (12.1-15.1); White Blood Count 5.24 10^3/uL (3.29-11.43)
[2023-01-31 08:05] LABS: Carcinoembryonic Antigen 7.1 ng/mL (0.0-4.7)
[2023-01-31 08:16] LABS: Alanine Aminotransferase 17 U/L (0-41); Albumin Level 4.1 g/dL (3.5-5.2); Alkaline Phosphatase 101 U/L (40-130); Anion Gap 12.2 (5-19); Aspartate Amino Transferase 30 U/L (0-40); Blood Urea Nitrogen 14 mg/dL (8-23); Carbon Dioxide 26 mmol/L (22-29); Chloride 105 mmol/L (98-107); Globulin 2.1 g/dL (1.3-4.6); Glucose 108 mg/dL (65-115); Osmolality Calculated 289 mOsm/kg (285-295); Potassium 4.2 mmol/L (3.5-5.1); Sodium 139 mmol/L (136-145); Total Bilirubin 0.7 mg/dL (0.15-1.2); Total Protein 6.2 g/dL (6.6-8.7)
[2023-01-31] MEDS: dextrose 5% 250 ML 75 ML IV (09:00)
[2023-01-31] MEDS: palonosetron 0.25 mg/5 mL SDV IVP (09:01)
[2023-01-31] MEDS: LEUCOVORIN IV (09:41)
[2023-01-31] MEDS: DEXTROSE 5% IV (09:41)
[2023-01-31] MEDS: SODIUM CHLORIDE IV (11:44)
[2023-01-31] MEDS: FLUOROURACIL IV (11:44)
[2023-01-31] MEDS: ELASTOMERIC PUMP PUMP IV (11:44)
[2023-01-31 11:50] VITALS: BP 165/95; PULSE 73; RESP 16; O2SAT 98
[2023-02-07 10:13] VITALS: BP 155/70; PULSE 75; RESP 16; TEMP 36.4; O2SAT 97
[2023-02-07 10:28] LABS: Basophils % 0.5 %; Eosinophils # 0.1 10^3/uL (0.0-0.8); Eosinophils % 1.7 %; Hematocrit 35.5 % (37-53); Lymphocytes # 0.9 10^3/uL (0.8-4.8); Lymphocytes % 21.9 %; Mean Corpuscular HGB Conc 32.4 g/dL (30-55); Mean Corpuscular Hemoglobin 30.2 pg (27-33); Mean Corpuscular Volume 93.2 fl (82-101); Mean Platelet Volume 9.5 fL (7.4-10.4); Monocytes # 0.3 10^3/uL (0.2-0.9); Monocytes % 7.1 %; Neutrophils # 2.76 10^3/uL (1.8-7.7); Neutrophils % 67.8 %; Nucleated Red Blood Cells % 0 %; Platelet Count 100 10^3/cmm (157-399); Red Blood Count 3.81 10^6/uL (3.85-5.65); Red Cell Distribution Width 15.7 % (12.1-15.1); White Blood Count 4.07 10^3/uL (3.29-11.43)
[2023-02-07 10:53] LABS: Alanine Aminotransferase 16 U/L (0-41); Albumin Level 4.1 g/dL (3.5-5.2); Alkaline Phosphatase 95 U/L (40-130); Aspartate Amino Transferase 28 U/L (0-40); Blood Urea Nitrogen 17 mg/dL (8-23); Carbon Dioxide 28 mmol/L (22-29); Chloride 104 mmol/L (98-107); Glucose 164 mg/dL (65-115); Osmolality Calculated 291 mOsm/kg (285-295); Sodium 138 mmol/L (136-145); Total Bilirubin 0.5 mg/dL (0.15-1.2); Total Protein 6.1 g/dL (6.6-8.7)
[2023-02-14 08:15] VITALS: BP 157/72; PULSE 68; RESP 16; TEMP 36.4; O2SAT 97
[2023-02-14 08:23] LABS: Basophils % 0.5 %; Eosinophils # 0.1 10^3/uL (0.0-0.8); Eosinophils % 1.3 %; Hematocrit 33.9 % (37-53); Lymphocytes # 0.6 10^3/uL (0.8-4.8); Lymphocytes % 14.4 %; Mean Corpuscular Hemoglobin 31.1 pg (27-33); Mean Corpuscular Volume 94.2 fl (82-101); Monocytes # 0.4 10^3/uL (0.2-0.9); Monocytes % 10.4 %; Neutrophils # 2.88 10^3/uL (1.8-7.7); Neutrophils % 72.9 %; Nucleated Red Blood Cells % 0 %; Platelet Count 89 10^3/cmm (157-399); Red Cell Distribution Width 15.6 % (12.1-15.1); White Blood Count 3.95 10^3/uL (3.29-11.43)
[2023-02-14 08:51] LABS: Carcinoembryonic Antigen 5.9 ng/mL (0.0-4.7)
[2023-02-14 09:02] LABS: Alanine Aminotransferase 18 U/L (0-41); Albumin Level 3.8 g/dL (3.5-5.2); Alkaline Phosphatase 96 U/L (40-130); Anion Gap 10.1 (5-19); Aspartate Amino Transferase 28 U/L (0-40); Blood Urea Nitrogen 16 mg/dL (8-23); Calcium 9.2 mg/dL (8.5-10.5); Carbon Dioxide 27 mmol/L (22-29); Chloride 105 mmol/L (98-107); Globulin 2.1 g/dL (1.3-4.6); Glucose 111 mg/dL (65-115); Osmolality Calculated 288 mOsm/kg (285-295); Potassium 4.1 mmol/L (3.5-5.1); Sodium 138 mmol/L (136-145); Total Bilirubin 0.7 mg/dL (0.15-1.2); Total Protein 5.9 g/dL (6.6-8.7)
== END 2023-02-14 23:59 | disposition home or self-care (01) ==
PROVIDERS: Nurse Practitioner Family; PCP Nurse Practitioner; Visit Provider Internal Medicine Medical Oncology
DX: C18.7 Malignant neoplasm of sigmoid colon (principal); Z45.2 Encounter for adjustment and management of vascular access device; Z95.828 Presence of other vascular implants and grafts; C19 Malignant neoplasm of rectosigmoid junction; Z79.899 Other long term (current) drug therapy
CPT/HCPCS: 36591; 80053; 82378; 85025; 96367; 96368; 96375; 96413; 96415; 96416; 96523; 99214; 99215; J0640; J1100; J1642; J2469; J7060; J9190; J9263

== ENCOUNTER → 2023-02-16 14:29 | Outpatient (BNVA) | payer MEDICARE, OTHER, SELFPAY | PROVIDERS: PCP Nurse Practitioner; Visit Provider Dermatology | DX: D48.5 Neoplasm of uncertain behavior of skin (principal); L82.1 Other seborrheic keratosis; L57.0 Actinic keratosis; D22.39 Melanocytic nevi of other parts of face | CPT/HCPCS: 11102; 17000; 99203 ==

== ENCOUNTER 2023-03-16 13:30 | Oncology outpatient (recurring) (ONCR) | payer MEDICARE, OTHER, SELFPAY ==
[2023-02-28 07:22] VITALS: BP 167/76; PULSE 77; RESP 16; TEMP 36.3; O2SAT 99
[2023-02-28 07:35] LABS: Basophils % 0.7 %; Eosinophils % 0.7 %; Hematocrit 35.5 % (37-53); Lymphocytes # 0.7 10^3/uL (0.8-4.8); Lymphocytes % 14.9 %; Mean Corpuscular HGB Conc 33.2 g/dL (30-55); Mean Corpuscular Hemoglobin 30.6 pg (27-33); Mean Corpuscular Volume 92.2 fl (82-101); Mean Platelet Volume 9.4 fL (7.4-10.4); Monocytes # 0.3 10^3/uL (0.2-0.9); Monocytes % 7.3 %; Neutrophils % 75.5 %; Nucleated Red Blood Cells % 0 %; Platelet Count 88 10^3/cmm (157-399); Red Blood Count 3.85 10^6/uL (3.85-5.65); Red Cell Distribution Width 15.4 % (12.1-15.1)
[2023-02-28 07:59] LABS: Alanine Aminotransferase 18 U/L (0-41); Albumin Level 3.9 g/dL (3.5-5.2); Alkaline Phosphatase 110 U/L (40-130); Anion Gap 11.1 (5-19); Aspartate Amino Transferase 25 U/L (0-40); Blood Urea Nitrogen 11 mg/dL (8-23); Carbon Dioxide 28 mmol/L (22-29); Chloride 107 mmol/L (98-107); Globulin 2.2 g/dL (1.3-4.6); Glucose 150 mg/dL (65-115); Osmolality Calculated 296 mOsm/kg (285-295); Potassium 4.1 mmol/L (3.5-5.1); Sodium 142 mmol/L (136-145); Total Bilirubin 0.6 mg/dL (0.15-1.2); Total Protein 6.1 g/dL (6.6-8.7)
[2023-03-07 11:15] VITALS: BP 177/77; PULSE 57; RESP 16; TEMP 36.2; O2SAT 99
[2023-03-07 11:23] LABS: Basophils % 0.4 %; Eosinophils % 0.8 %; Hematocrit 36.1 % (37-53); Lymphocytes # 0.9 10^3/uL (0.8-4.8); Lymphocytes % 17.8 %; Mean Corpuscular HGB Conc 32.1 g/dL (30-55); Mean Corpuscular Volume 93.3 fl (82-101); Mean Platelet Volume 9.8 fL (7.4-10.4); Monocytes # 0.5 10^3/uL (0.2-0.9); Monocytes % 10.8 %; Neutrophils # 3.39 10^3/uL (1.8-7.7); Neutrophils % 69.4 %; Nucleated Red Blood Cells % 0 %; Platelet Count 103 10^3/cmm (157-399); Red Blood Count 3.87 10^6/uL (3.85-5.65); Red Cell Distribution Width 15.9 % (12.1-15.1); White Blood Count 4.89 10^3/uL (3.29-11.43)
[2023-03-14 08:36] VITALS: BP 152/75; PULSE 78; RESP 16; TEMP 36.3; O2SAT 98
[2023-03-14 09:06] LABS: Basophils % 0.5 %; Eosinophils # 0.1 10^3/uL (0.0-0.8); Eosinophils % 1.4 %; Hematocrit 34.8 % (37-53); Lymphocytes # 0.7 10^3/uL (0.8-4.8); Lymphocytes % 15.8 %; Mean Corpuscular HGB Conc 32.5 g/dL (30-55); Mean Corpuscular Hemoglobin 30.5 pg (27-33); Mean Corpuscular Volume 94.1 fl (82-101); Mean Platelet Volume 10.6 fL (7.4-10.4); Monocytes # 0.4 10^3/uL (0.2-0.9); Monocytes % 9.9 %; Neutrophils # 3.19 10^3/uL (1.8-7.7); Neutrophils % 71.7 %; Nucleated Red Blood Cells % 0 %; Platelet Count 114 10^3/cmm (157-399); Red Cell Distribution Width 15.4 % (12.1-15.1); White Blood Count 4.44 10^3/uL (3.29-11.43)
[2023-03-14] MEDS: dextrose 5% 250 ML 75 ML IV (09:39)
[2023-03-14] MEDS: palonosetron 0.25 mg/5 mL SDV IVP (09:40)
[2023-03-14 10:00] LABS: Alanine Aminotransferase 16 U/L (0-41); Albumin Level 3.9 g/dL (3.5-5.2); Alkaline Phosphatase 102 U/L (40-130); Anion Gap 12.1 (5-19); Aspartate Amino Transferase 27 U/L (0-40); Blood Urea Nitrogen 17 mg/dL (8-23); Calcium 8.8 mg/dL (8.5-10.5); Carbon Dioxide 27 mmol/L (22-29); Carcinoembryonic Antigen 5.8 ng/mL (0.0-4.7); Chloride 103 mmol/L (98-107); Glucose 98 mg/dL (65-115); Osmolality Calculated 288 mOsm/kg (285-295); Potassium 4.1 mmol/L (3.5-5.1); Sodium 138 mmol/L (136-145); Total Bilirubin 0.7 mg/dL (0.15-1.2); Total Protein 5.9 g/dL (6.6-8.7)
[2023-03-14] MEDS: leucovorin 980 MG in dextrose 5% 250 ML 62.5 MG IV (10:29)
[2023-03-14] MEDS: FLUOROURACIL IV (13:18)
[2023-03-14] MEDS: ELASTOMERIC PUMP PUMP IV (13:18)
[2023-03-14] MEDS: SODIUM CHLORIDE IV (13:18)
[2023-03-14 13:29] VITALS: BP 142/78; PULSE 74; RESP 18; TEMP 36.6; O2SAT 98
== END 2023-03-16 23:59 | disposition home or self-care (01) ==
PROVIDERS: Internal Medicine Medical Oncology; PCP Nurse Practitioner; Visit Provider Nurse Practitioner Family
DX: Z45.1 Encounter for adjustment and management of infusion pump; D03.72 Melanoma in situ of left lower limb, including hip
CPT/HCPCS: 11604; 12032; 36591; 80053; 82378; 85025; 96367; 96375; 96411; 96413; 96415; 96416; 96417; 96523; 99214; J0640; J1100; J1642; J2469; J7060; J9190; J9263

== ENCOUNTER → 2023-04-03 10:15 | Outpatient (BNVA) | payer MEDICARE, OTHER, SELFPAY | PROVIDERS: PCP Nurse Practitioner; Visit Provider Nurse Practitioner Family | DX: N39.0 Urinary tract infection, site not specified (principal) | CPT/HCPCS: 81000 ==

== ENCOUNTER → 2023-04-05 13:11 | Outpatient (BNVA) | payer MEDICARE, OTHER, SELFPAY | PROVIDERS: PCP Nurse Practitioner; Visit Provider Nurse Practitioner Family | DX: Z48.817 Encounter for surgical aftercare following surgery on the skin and subcutaneous tissue (principal) | CPT/HCPCS: 99212 ==

== ENCOUNTER 2023-04-13 12:30 | Oncology outpatient (recurring) (ONCR) | payer MEDICARE, OTHER, SELFPAY ==
[2023-03-28 07:55] VITALS: BP 173/78; PULSE 73; RESP 16; TEMP 36.3; O2SAT 96
[2023-03-28 08:10] LABS: Basophils % 0.5 %; Hematocrit 33.7 % (37-53); Lymphocytes # 0.7 10^3/uL (0.8-4.8); Lymphocytes % 16.5 %; Mean Corpuscular HGB Conc 32.6 g/dL (30-55); Mean Corpuscular Hemoglobin 30.5 pg (27-33); Mean Corpuscular Volume 93.4 fl (82-101); Mean Platelet Volume 9.3 fL (7.4-10.4); Monocytes # 0.5 10^3/uL (0.2-0.9); Monocytes % 11.5 %; Neutrophils # 2.81 10^3/uL (1.8-7.7); Neutrophils % 70.2 %; Nucleated Red Blood Cells % 0 %; Platelet Count 94 10^3/cmm (157-399); Red Blood Count 3.61 10^6/uL (3.85-5.65); Red Cell Distribution Width 14.9 % (12.1-15.1)
[2023-03-28 08:27] LABS: Alanine Aminotransferase 16 U/L (0-41); Alkaline Phosphatase 105 U/L (40-130); Anion Gap 13.4 (5-19); Aspartate Amino Transferase 31 U/L (0-40); Blood Urea Nitrogen 11 mg/dL (8-23); Calcium 9.3 mg/dL (8.5-10.5); Carbon Dioxide 27 mmol/L (22-29); Chloride 104 mmol/L (98-107); Globulin 2.2 g/dL (1.3-4.6); Glucose 109 mg/dL (65-115); Osmolality Calculated 290 mOsm/kg (285-295); Potassium 4.4 mmol/L (3.5-5.1); Sodium 140 mmol/L (136-145); Total Bilirubin 0.7 mg/dL (0.15-1.2); Total Protein 6.2 g/dL (6.6-8.7)
[2023-03-28] MEDS: dextrose 5% 250 ML 75 ML IV (11:38)
[2023-03-28] MEDS: palonosetron 0.25 mg/5 mL SDV IVP (11:39)
[2023-03-28] MEDS: leucovorin 980 MG in dextrose 5% 250 ML 62.5 MG IV (12:24)
[2023-03-28] MEDS: FLUOROURACIL IV (14:44)
[2023-03-28] MEDS: ELASTOMERIC PUMP PUMP IV (14:44)
[2023-03-28] MEDS: SODIUM CHLORIDE IV (14:44)
[2023-03-28 14:50] VITALS: BP 162/77; PULSE 78; RESP 16; TEMP 36.3; O2SAT 96
[2023-03-30 11:00] VITALS: BP 151/83; PULSE 63; TEMP 36.5; O2SAT 98
[2023-04-11 08:53] VITALS: BP 164/69; PULSE 58; RESP 16; TEMP 36.7; O2SAT 95
[2023-04-11 09:14] LABS: Basophils % 0.5 %; Hematocrit 33.3 % (37-53); Lymphocytes # 0.6 10^3/uL (0.8-4.8); Lymphocytes % 13.9 %; Mean Corpuscular HGB Conc 32.7 g/dL (30-55); Mean Corpuscular Hemoglobin 30.4 pg (27-33); Mean Corpuscular Volume 92.8 fl (82-101); Mean Platelet Volume 9.4 fL (7.4-10.4); Monocytes # 0.5 10^3/uL (0.2-0.9); Monocytes % 11.4 %; Neutrophils # 2.99 10^3/uL (1.8-7.7); Neutrophils % 72.7 %; Nucleated Red Blood Cells % 0 %; Platelet Count 75 10^3/cmm (157-399); Red Blood Count 3.59 10^6/uL (3.85-5.65); Red Cell Distribution Width 14.8 % (12.1-15.1); White Blood Count 4.11 10^3/uL (3.29-11.43)
[2023-04-11 09:51] LABS: Carcinoembryonic Antigen 7.8 ng/mL (0.0-4.7)
[2023-04-11 10:05] LABS: Alanine Aminotransferase 19 U/L (0-41); Albumin Level 4.1 g/dL (3.5-5.2); Alkaline Phosphatase 93 U/L (40-130); Aspartate Amino Transferase 32 U/L (0-40); Blood Urea Nitrogen 12 mg/dL (8-23); Calcium 9.2 mg/dL (8.5-10.5); Carbon Dioxide 27 mmol/L (22-29); Chloride 105 mmol/L (98-107); Glucose 104 mg/dL (65-115); Osmolality Calculated 292 mOsm/kg (285-295); Sodium 141 mmol/L (136-145); Total Bilirubin 0.8 mg/dL (0.15-1.2); Total Protein 6.1 g/dL (6.6-8.7)
[2023-04-11] MEDS: dextrose 5% 250 ML 75 ML IV (11:30)
[2023-04-11] MEDS: palonosetron 0.25 mg/5 mL SDV IVP (11:34)
[2023-04-11] MEDS: leucovorin 980 MG in dextrose 5% 250 ML 87 MG IV (12:38)
[2023-04-11] MEDS: oxaliplatin 184 MG in dextrose 5% 250 ML 71.7 MG IV (12:38)
[2023-04-11] MEDS: SODIUM CHLORIDE IV (14:47)
[2023-04-11] MEDS: FLUOROURACIL IV (14:47)
[2023-04-11] MEDS: ELASTOMERIC PUMP PUMP IV (14:47)
== END 2023-04-16 23:59 | disposition home or self-care (01) ==
PROVIDERS: Internal Medicine; Internal Medicine Medical Oncology; PCP Nurse Practitioner; Visit Provider Nurse Practitioner Family
DX: Z45.1 Encounter for adjustment and management of infusion pump (principal); Z53.9 Procedure and treatment not carried out, unspecified reason
CPT/HCPCS: 80053; 82378; 85025; 96365; 96367; 96368; 96374; 96375; 96413; 96415; 96416; 96417; 96523; 99212; 99214; 99215; J0640; J1100; J1642; J2469; J7060; J9190; J9263

== ENCOUNTER 2023-04-21 14:08 | Outpatient (CLI) | payer MEDICARE, OTHER, SELFPAY ==
[2023-04-21] MEDS: iohexol 350 mg/mL 500 mL Btl (per mL) PO (14:16)
[2023-04-21] MEDS: iohexol 350 mg/mL 500 mL Btl (per mL) IV (15:16)
--- NOTE | 2023-04-21 16:00 | CTR_ITS ---
PROCEDURE INFORMATION: Exam: CT Chest With Contrast; Diagnostic Exam date and time: 04/21/2023 3:11 PM Age: 77 years old Clinical indication: Abnormal findings; Abnormal lab test; Elevated cea; Abnormal diagnostic tests; Other: Increasing cea level, prior surgery; Surgery date: 6+ months; Surgery type: Reversed colostomy x1 yr ago; RT side laterally cow horn punctured with repair; Patient HX: Colon CA with chemo ending 10 days ago. ; Additional info: Increasing cea level, please schedule before 04/25/23 oncology f/u visit TECHNIQUE: Imaging protocol: Diagnostic computed tomography of the chest with contrast. Radiation optimization: All CT scans at this facility use at least one of these dose optimization techniques: automated exposure control; mA and/or kV adjustment per patient size (includes targeted exams where dose is matched to clinical indication); or iterative reconstruction. Contrast material: OMNI 350; Contrast volume: 95 ml; Contrast route: INTRAVENOUS (IV); COMPARISON: CT chest abdpel w/*[id number] 01/13/2023 3:27 PM RADIATION DOSE METRICS: Total DLP (mGy-cm): 156.13 FINDINGS: Thyroid: Grossly unremarkable. Lungs: No focal consolidation or pneumothorax. Pleural spaces: Trace left-sided pleural effusion. Heart: No cardiomegaly or pericardial effusion. Coronary arteries: No evidence of coronary artery calcification. Mediastinal space: No evidence of mediastinal mass or hematoma. Trachea and airway are grossly patent. Lymph nodes: No evidence of mediastinal or hilar adenopathy. Vasculature: Left-sided MediPort in place with tip in the distal SVC. No aneurysmal dilatation or dissection of the thoracic aorta. Though this study is not tailored to evaluate for pulmonary thromboembolism, there is no evidence of PE within limitations of respiratory motion. Bones/joints: No evidence of acute fracture or aggressive osseous lesion. Soft tissues: No fluid collection, hematoma or mass-like lesion in the superficial soft tissues. PROCEDURE INFORMATION: Exam: CT Abdomen And Pelvis With Contrast Exam date and time: 04/21/2023 3:11 PM Age: 77 years old Clinical indication: Abnormal findings; Abnormal lab test; Elevated cea; Abnormal diagnostic tests; Other: Increasing cea level, prior surgery; Surgery date: 6+ months; Surgery type: Reversed colostomy x1 yr ago; RT side laterally cow horn punctured with repair; Patient HX: Colon CA with chemo ending 10 days ago. ; Additional info: Increasing cea level, please schedule before 04/25/23 oncology f/u visit TECHNIQUE: Imaging protocol: Computed tomography of the abdomen and pelvis with contrast. Radiation optimization: All CT scans at this facility use at least one of these dose optimization techniques: automated exposure control; mA and/or kV adjustment per patient size (includes targeted exams where dose is matched to clinical indication); or iterative reconstruction. Contrast material: OMNI 350; Contrast volume: 95 ml; Contrast route: INTRAVENOUS (IV); COMPARISON: MR abdomen wo/w con* [id number] 01/25/2023 2:55 PM RADIATION DOSE METRICS: Total DLP (mGy-cm): 1563.13 FINDINGS: Lungs: Subsegmental bibasilar atelectasis. The visualized lung bases are otherwise grossly clear. Diaphragm: No evidence of diaphragmatic defect. Liver: Multiple hepatic hypodensities compatible with cysts. A few of the hypodensities are too small to characterize, though grossly unchanged from prior MRI and compatible with hepatic cysts. Gallbladder and bile ducts: Unremarkable. No intra-hepatic or extra-hepatic biliary dilatation. Pancreas: Unremarkable. Spleen: Splenomegaly, measuring up to 16 cm in length. Adrenal glands: Unremarkable. Kidneys and ureters: Multiple simple appearing bilateral renal cysts for which dedicated imaging follow-up is not required. No hydronephrosis or ureteral stone. Stomach and bowel: Postsurgical changes of the rectum. There is mild wall thickening of the rectum distal to the anastomosis, nonspecific though raising the question of recurrent neoplasm (for example, image 85 of the axial series 7). Correlation with MRI of the pelvis with rectal protocol is recommended. No evidence of bowel obstruction, free air or pneumatosis. Appendix: Normal appendix. Intraperitoneal space: No significant free fluid or collection. Vasculature: Unchanged infrarenal abdominal aorta measuring approximately 5.5 cm status post aortobi-iliac stent graft, which is patent. Again seen is an approximate 11 mm focus of arterial enhancement along the posterior aspect of the stent graft compatible with endoleak (image 52 of the axial series 7). Vascular Clinic follow-up is recommended. Lymph nodes: No adenopathy. Urinary bladder: The prostate indents the bladder base. Otherwise grossly unremarkable. Reproductive: Enlarged prostate measuring 6.8 cm. Consider correlation with serum laboratory findings and outpatient urologic evaluation. Bones/joints: No evidence of acute fracture or aggressive osseous lesion. Soft tissues: No evidence of fluid collection, hematoma or mass-like lesion in the superficial soft tissues. CT/CT chest abdpel w/*[id number] IMPRESSION: 1. No evidence of metastatic disease in the chest. 2. Dilation of the pulmonary trunk suggestive of pulmonary arterial hypertension. IMPRESSION: 1. Wall thickening of the rectum distal to the anastomosis, nonspecific though raising the question of recurrent disease. Correlation with MRI of the pelvis with rectal protocol is recommended. 2. Enlarged prostate indenting the bladder base. Consider correlation with serum laboratory findings and outpatient urologic evaluation. 3. Infrarenal abdominal aortic aneurysm status post stent graft with findings concerning for endoleak, unchanged since prior. Vascular Clinic follow-up is recommended. COMMENTS: Consistent with the [employer]'s Incidental Findings Committee white paper (J Am [employer] Radiol 2018): Any incidental renal lesion less than 1 cm or classified as too small to characterize, or any incidental cystic renal lesion characterized as simple-appearing, is likely benign. No follow-up imaging is recommended for these lesions per consensus recommendations based on imaging criteria.
== END 2023-04-21 14:09 | disposition home or self-care (01) ==
LOC: RAD 14:08
PROVIDERS: PCP Nurse Practitioner; Visit Provider Nurse Practitioner Family
DX: C18.7 Malignant neoplasm of sigmoid colon (principal); R97.0 Elevated carcinoembryonic antigen [CEA]; R93.3 Abnormal findings on diagnostic imaging of other parts of digestive tract; N40.0 Benign prostatic hyperplasia without lower urinary tract symptoms; I71.43 Infrarenal abdominal aortic aneurysm, without rupture; Z95.828 Presence of other vascular implants and grafts
CPT/HCPCS: 71260; 74177; Q9967

== ENCOUNTER 2023-05-11 12:00 | Oncology outpatient (recurring) (ONCR) | payer MEDICARE, OTHER, SELFPAY ==
[2023-04-25 07:59] VITALS: BP 137/64; PULSE 75; RESP 17; TEMP 36.4; O2SAT 96
[2023-04-25 08:01] LABS: Eosinophils % 1.3 %; Lymphocytes # 0.6 10^3/uL (0.8-4.8); Lymphocytes % 19.4 %; Mean Corpuscular HGB Conc 33.3 g/dL (30-55); Mean Corpuscular Hemoglobin 30.6 pg (27-33); Mean Corpuscular Volume 91.9 fl (82-101); Mean Platelet Volume 9.5 fL (7.4-10.4); Monocytes # 0.4 10^3/uL (0.2-0.9); Monocytes % 11.7 %; Neutrophils # 1.99 10^3/uL (1.8-7.7); Neutrophils % 66.6 %; Nucleated Red Blood Cells % 0 %; Platelet Count 84 10^3/cmm (157-399); Red Blood Count 3.59 10^6/uL (3.85-5.65); Red Cell Distribution Width 14.8 % (12.1-15.1); White Blood Count 2.99 10^3/uL (3.29-11.43)
[2023-04-25 08:29] LABS: Carcinoembryonic Antigen 8.2 ng/mL (0.0-4.7)
[2023-04-25 08:40] LABS: Alanine Aminotransferase 19 U/L (0-41); Albumin Level 3.8 g/dL (3.5-5.2); Alkaline Phosphatase 93 U/L (40-130); Anion Gap 11.9 (5-19); Aspartate Amino Transferase 31 U/L (0-40); Blood Urea Nitrogen 14 mg/dL (8-23); Carbon Dioxide 27 mmol/L (22-29); Chloride 108 mmol/L (98-107); Globulin 2.1 g/dL (1.3-4.6); Glucose 154 mg/dL (65-115); Osmolality Calculated 300 mOsm/kg (285-295); Potassium 3.9 mmol/L (3.5-5.1); Sodium 143 mmol/L (136-145); Total Bilirubin 0.6 mg/dL (0.15-1.2); Total Protein 5.9 g/dL (6.6-8.7)
[2023-04-25] MEDS: dextrose 5% 250 ML 75 ML IV (09:36)
[2023-04-25] MEDS: palonosetron 0.25 mg/5 mL SDV IVP (09:36)
[2023-04-25] MEDS: leucovorin 980 MG in dextrose 5% 250 ML 87 MG IV (10:00)
[2023-04-25] MEDS: oxaliplatin 184 MG in dextrose 5% 250 ML 71.7 MG IV (10:01)
[2023-04-25] MEDS: FLUOROURACIL IV (12:01)
[2023-04-25] MEDS: ELASTOMERIC PUMP PUMP IV (12:01)
[2023-04-25] MEDS: SODIUM CHLORIDE IV (12:01)
[2023-04-25 12:04] VITALS: BP 111/82; PULSE 80; RESP 16; TEMP 36.7; O2SAT 93
[2023-04-27 10:28] VITALS: BP 146/70; PULSE 73; TEMP 36.7; O2SAT 93
[2023-05-09 07:54] VITALS: BP 145/66; PULSE 61; RESP 18; TEMP 36.6; O2SAT 95
[2023-05-09 08:17] LABS: Basophils % 0.7 %; Eosinophils # 0.1 10^3/uL (0.0-0.8); Eosinophils % 1.2 %; Hematocrit 32.8 % (37-53); Lymphocytes # 0.7 10^3/uL (0.8-4.8); Lymphocytes % 15.7 %; Mean Corpuscular HGB Conc 32.6 g/dL (30-55); Mean Corpuscular Hemoglobin 29.9 pg (27-33); Mean Corpuscular Volume 91.6 fl (82-101); Mean Platelet Volume 9.7 fL (7.4-10.4); Monocytes # 0.6 10^3/uL (0.2-0.9); Monocytes % 14.3 %; Neutrophils # 2.81 10^3/uL (1.8-7.7); Neutrophils % 67.9 %; Nucleated Red Blood Cells % 0 %; Platelet Count 82 10^3/cmm (157-399); Red Blood Count 3.58 10^6/uL (3.85-5.65); Red Cell Distribution Width 15.3 % (12.1-15.1); White Blood Count 4.14 10^3/uL (3.29-11.43)
[2023-05-09 08:43] LABS: Carcinoembryonic Antigen 9.5 ng/mL (0.0-4.7)
[2023-05-09 08:56] LABS: Alanine Aminotransferase 18 U/L (0-41); Albumin Level 3.8 g/dL (3.5-5.2); Alkaline Phosphatase 100 U/L (40-130); Anion Gap 12.2 (5-19); Aspartate Amino Transferase 33 U/L (0-40); Blood Urea Nitrogen 16 mg/dL (8-23); Calcium 9.3 mg/dL (8.5-10.5); Carbon Dioxide 27 mmol/L (22-29); Chloride 105 mmol/L (98-107); Globulin 2.2 g/dL (1.3-4.6); Glucose 101 mg/dL (65-115); Osmolality Calculated 291 mOsm/kg (285-295); Potassium 4.2 mmol/L (3.5-5.1); Sodium 140 mmol/L (136-145); Total Bilirubin 0.8 mg/dL (0.15-1.2)
[2023-05-09] MEDS: dextrose 5% 250 ML 75 ML IV (09:44)
[2023-05-09] MEDS: palonosetron 0.25 mg/5 mL SDV IVP (09:46)
[2023-05-09] MEDS: leucovorin 980 MG in dextrose 5% 250 ML 87 MG IV (10:22)
[2023-05-09] MEDS: oxaliplatin 184 MG in dextrose 5% 250 ML 71.7 MG IV (10:22)
[2023-05-09] MEDS: SODIUM CHLORIDE IV (12:37)
[2023-05-09] MEDS: ELASTOMERIC PUMP PUMP IV (12:37)
[2023-05-09] MEDS: FLUOROURACIL IV (12:37)
[2023-05-09 12:47] VITALS: BP 156/77; PULSE 77; RESP 17; TEMP 35.9; O2SAT 98
[2023-05-11 11:43] VITALS: BP 134/63
== END 2023-05-17 23:59 | disposition home or self-care (01) ==
PROVIDERS: Internal Medicine; PCP Nurse Practitioner; Visit Provider Nurse Practitioner Family
DX: Z45.1 Encounter for adjustment and management of infusion pump (principal); Z53.9 Procedure and treatment not carried out, unspecified reason
CPT/HCPCS: 80053; 82378; 84153; 85025; 96365; 96366; 96367; 96375; 96413; 96415; 96416; 96417; 96523; 99215; J0640; J1100; J1642; J2469; J7060; J9190; J9263

== ENCOUNTER 2023-05-23 10:03 | Outpatient (CLI) | payer MEDICARE, OTHER, SELFPAY ==
--- NOTE | 2023-05-23 11:00 | MR_ITS ---
WS: [id number] MRI PELVIS WITH AND WITHOUT CONTRAST. COMPARISON: CT 04/21/2023 Multiplanar, multisequence imaging is performed with and without contrast. MultiHance 20 mL. Status post distal surgical resection sigmoid colon. No rectal wall thickening is identified by MRI. There is no recurrent mass identified or asymmetry of the wall. Suture line is intact. No mesorectal lymph nodes. No lymph nodes extending along the iliac chain. No ascites. Prostate gland is enlarged and heterogeneous. Reidentified are cysts in the lower pole of each kidney which have been previously described. Patient is status post endovascular graft repair of an aortic aneurysm. There is no free fluid in the pelvis or around the aorta. IMPRESSION: 1. Distal sigmoid resection is stable. No colon obstruction and no soft tissue mass. 2. No rectal wall enhancement or soft tissue thickening identified. 3. No ascites or adenopathy in the pelvis. 4. Status post endovascular graft repair of the abdominal aorta.
[2023-05-23] MEDS: gadobenate dimeglumine 20 mL vial IV (11:13)
== END 2023-05-23 10:04 | disposition home or self-care (01) ==
LOC: RAD 10:03
PROVIDERS: PCP Nurse Practitioner; Visit Provider Internal Medicine
DX: C18.7 Malignant neoplasm of sigmoid colon (principal); C43.9 Malignant melanoma of skin, unspecified; Z87.891 Personal history of nicotine dependence
CPT/HCPCS: 72197; A9577

== ENCOUNTER 2023-05-31 08:52 | Oncology outpatient (recurring) (ONCR) | payer MEDICARE, OTHER, SELFPAY ==
[2023-05-31 09:20] VITALS: BP 128/58; PULSE 44; RESP 16; TEMP 36.5; O2SAT 94
[2023-05-31 09:42] LABS: Eosinophils % 0.7 %; Hematocrit 34.3 % (37-53); Lymphocytes # 0.7 10^3/uL (0.8-4.8); Lymphocytes % 17.3 %; Mean Corpuscular HGB Conc 32.7 g/dL (30-55); Mean Corpuscular Hemoglobin 30.4 pg (27-33); Mean Platelet Volume 10.5 fL (7.4-10.4); Monocytes # 0.5 10^3/uL (0.2-0.9); Monocytes % 11.6 %; Neutrophils # 2.89 10^3/uL (1.8-7.7); Neutrophils % 68.7 %; Nucleated Red Blood Cells % 0 %; Platelet Count 93 10^3/cmm (157-399); Red Blood Count 3.69 10^6/uL (3.85-5.65); Red Cell Distribution Width 16.3 % (12.1-15.1); White Blood Count 4.21 10^3/uL (3.29-11.43)
[2023-05-31 10:00] LABS: Alanine Aminotransferase 16 U/L (0-41); Albumin Level 3.7 g/dL (3.5-5.2); Alkaline Phosphatase 112 U/L (40-130); Anion Gap 13.2 (5-19); Aspartate Amino Transferase 38 U/L (0-40); Blood Urea Nitrogen 18 mg/dL (8-23); Calcium 8.4 mg/dL (8.5-10.5); Carbon Dioxide 26 mmol/L (22-29); Chloride 107 mmol/L (98-107); Globulin 2.5 g/dL (1.3-4.6); Glucose 137 mg/dL (65-115); Osmolality Calculated 298 mOsm/kg (285-295); Potassium 4.2 mmol/L (3.5-5.1); Sodium 142 mmol/L (136-145); Total Bilirubin 0.9 mg/dL (0.15-1.2); Total Protein 6.2 g/dL (6.6-8.7)
[2023-05-31 11:32] LABS: Carcinoembryonic Antigen 9.1 ng/mL (0.0-4.7)
== END 2023-06-15 23:59 | disposition home or self-care (01) ==
LOC: ONCMED 08:53
PROVIDERS: Internal Medicine Medical Oncology; PCP Nurse Practitioner; Visit Provider Nurse Practitioner Family
DX: C19 Malignant neoplasm of rectosigmoid junction (principal); Z95.828 Presence of other vascular implants and grafts; Z90.49 Acquired absence of other specified parts of digestive tract; Z87.891 Personal history of nicotine dependence; Z85.828 Personal history of other malignant neoplasm of skin; R97.0 Elevated carcinoembryonic antigen [CEA]
CPT/HCPCS: 80053; 82378; 85025; 99214; J1642

== ENCOUNTER → 2023-06-14 13:28 | Outpatient (BNVA) | payer MEDICARE, OTHER, SELFPAY | PROVIDERS: PCP Nurse Practitioner; Visit Provider Nurse Practitioner Family | DX: D18.01 Hemangioma of skin and subcutaneous tissue (principal); L82.1 Other seborrheic keratosis; L57.0 Actinic keratosis; C18.9 Malignant neoplasm of colon, unspecified; Z85.820 Personal history of malignant melanoma of skin | CPT/HCPCS: 17000; 99213 ==

== ENCOUNTER 2023-06-27 09:23 | Outpatient (CLI) | payer MEDICARE, OTHER, SELFPAY ==
--- NOTE | 2023-06-27 11:00 | PETR_ITS ---
PROCEDURE INFORMATION: Exam: PET/CT Skull Base to Mid-thigh Exam date and time: 06/27/2023 10:57 AM Age: 77 years old Clinical indication: Condition or disease; Primary cancer: Colon cancer. History of previous chemotherapy October 2022 through May 2023. LABS AND CLINICAL REPORTS: Glucose: 93 mg/dl Treatment strategy for malignancy (PET staging): Initial Staging (PI) TECHNIQUE: Imaging protocol: Following at least four-hour fasting and following the injection of radiopharmaceutical, low dose CT images were obtained. Then, PET images were obtained. Attenuation corrected images were constructed using the CT scan. Fused images of PET and CT were reviewed. The standardized uptake values (SUV) reported below are maximum values within a region of interest, expressed in gm/ml. Exam includes orbital meatal line to mid-thigh. Radiopharmaceutical: 14.33 mCi F-18 FDG (Fluorodeoxyglucose), IV. Time of imaging post radiopharmaceutical administration: 1 hour Injection site: Right antecubital COMPARISON: CT chest abdpel w/*[id number] 04/21/2023 3:11 PM, MRI pelvis 05/23/2023, MRI abdomen 01/25/2023 FINDINGS: Tubes, catheters and devices: A left subclavian central venous port catheter terminates in the distal SVC. Brain: Visualized brain has normal physiologic uptake. Paranasal sinuses: Mild non radiotracer avid mucosal thickening within the ethmoid sinuses is noted consistent with benign chronic sinusitis. Pharynx: No abnormal uptake. Larynx: No abnormal uptake. Lungs, pleura and trachea: Small, left greater than right pleural effusions are new. There is a right lower lobe calcified granuloma. Two adjacent noncalcified solid-appearing nodules in the medial left upper lobe measuring 3-4 mm in diameter on series 3, image 62 are not radiotracer avid, SUV max 1.6. A solid non radiotracer avid right upper lobe 5 mm nodule on image 73 is not radiotracer avid, SUV max 0.8. No definite additional pulmonary nodules are noted with limitations of mild respiratory motion artifact. These nodules are new since the prior CT of 04/21/2023. Mild dependent streaky density in the lungs is consistent with atelectasis. Heart: Mild cardiomegaly. No abnormal uptake. Mediastinal space: No abnormal uptake. Liver: No abnormal uptake. Low-density rounded lesions in the liver measuring 1.1 cm in the dome on series 3, image 116 and 3.1 x 2.4 cm in the lateral right lobe on image 122 and in the inferior right lobe measuring 3.1 x 2.0 cm on image 154 are not radiotracer avid likely related to benign cysts or hemangiomas. Gallbladder and bile ducts: No abnormal uptake. Pancreas: No abnormal uptake. Spleen: No abnormal uptake. Adrenal glands: No abnormal uptake. Kidneys and ureters: Normal physiologic uptake. Rounded low-density non radiotracer avid structures arising from both kidneys are compatible with probable benign cysts. A nonobstructing 2-3 mm stone in the right kidney is noted. Normal physiologic appearing uptake in the distal right ureter on series 12, image 213. Stomach and bowel: No abnormal uptake. In a mass to [place] staple line in the region of the rectosigmoid junction is noted without elevated uptake. Reproductive: There is moderate prominence of the prostate gland without focal abnormal uptake. Vasculature: No abnormal uptake. Diffuse atherosclerotic changes are present. Aneurysmal dilatation of the [place] infrarenal abdominal aorta is noted measuring 6.8 x 5.2 cm on series 3, image 176. Lymph nodes: No abnormal uptake. No lymphadenopathy in the head, neck, chest, abdomen, pelvis, and extremities. Benign-appearing non radiotracer avid calcified right hilar lymph nodes are noted. Bones/joints: No abnormal uptake in the visualized axial and appendicular skeleton. Degenerative changes in the spine are noted with moderate thoracic spine kyphosis. Benign-appearing extensive anterior fused anterior spondylosis at multiple vertebral levels in the cervical and thoracic spine is noted. Soft tissues: No abnormal uptake in the visualized head, neck, chest, abdomen, pelvis, and extremities. METRICS: Mediastinal blood pool: SUV max 2.4 PET[facility] INITIAL [id number] IMPRESSION: 1. No evidence of radiotracer avid malignancy. 2. Postoperative changes at the rectosigmoid junction are noted without elevated uptake. 3. Non radiotracer avid low-density lesions in the liver present consistent with benign cysts which were further characterized on the prior MRI abdomen of 01/25/2023. 4. Small bilateral upper lobe pulmonary nodules are new since the prior CT of 04/21/2023 without significant uptake. Assessment of small nodules can be limited by PET-CT. The possibility of metastases a cannot be excluded. 5. New small bilateral pleural effusions. 6. Additional nonurgent findings as detailed above.
== END 2023-06-27 09:24 | disposition home or self-care (01) ==
LOC: RAD 09:24
PROVIDERS: PCP Nurse Practitioner; Visit Provider Internal Medicine Medical Oncology
DX: C18.9 Malignant neoplasm of colon, unspecified (principal); R91.8 Other nonspecific abnormal finding of lung field; J90 Pleural effusion, not elsewhere classified; Z98.890 Other specified postprocedural states
CPT/HCPCS: 78815; A9552

== ENCOUNTER 2023-07-04 08:31 | Oncology outpatient (recurring) (ONCR) | payer MEDICARE, OTHER, SELFPAY | END 2023-07-16 23:59 | disposition home or self-care (01) | PROVIDERS: PCP Nurse Practitioner; Visit Provider Nurse Practitioner Family | DX: Z45.2 Encounter for adjustment and management of vascular access device (principal) | CPT/HCPCS: J1642 ==

== ENCOUNTER → 2023-07-25 09:40 | Outpatient (BNVA) | payer MEDICARE, OTHER, SELFPAY | PROVIDERS: PCP Nurse Practitioner; Visit Provider Nurse Practitioner Family | DX: I48.0 Paroxysmal atrial fibrillation (principal); I10 Essential (primary) hypertension; Z87.891 Personal history of nicotine dependence; Z79.01 Long term (current) use of anticoagulants | CPT/HCPCS: 99214 ==

== ENCOUNTER 2023-08-01 12:38 | Oncology outpatient (recurring) (ONCR) | payer MEDICARE, OTHER, SELFPAY | END 2023-08-15 23:59 | disposition home or self-care (01) | PROVIDERS: PCP Nurse Practitioner; Visit Provider Nurse Practitioner Family | DX: Z45.2 Encounter for adjustment and management of vascular access device (principal) | CPT/HCPCS: 96523; J1642 ==

== ENCOUNTER 2023-08-29 10:30 | Oncology outpatient (recurring) (ONCR) | payer MEDICARE, OTHER, SELFPAY | END 2023-09-15 23:59 | disposition home or self-care (01) | LOC: ONCMED 10:30 | PROVIDERS: PCP Nurse Practitioner; Visit Provider Nurse Practitioner Family | DX: Z45.2 Encounter for adjustment and management of vascular access device (principal) ==

== ENCOUNTER 2023-09-18 09:23 | Outpatient (CLI) | payer MEDICARE, OTHER, SELFPAY ==
--- NOTE | 2023-09-18 11:00 | CT_ITS ---
WS: [id number] CT CHEST, ABDOMEN AND PELVIS WITH CONTRAST HISTORY: adenocarcinoma of rectosigmoid junction TECHNIQUE: Contiguous 5 mm axial imaging performed through the chest, abdomen and pelvis IV contrast, oral contrast has been provided. Coronal and sagittal reformats chest. Coronal and sagittal reformat s through the abdomen and pelvis. All CT scans at [facility] use at least one of these dose o ptimization techniques: automated exposure control; mA and/or kV adjustment per patient size (include s targeted exams where dose is matched to clinical indication); or iterative reconstruction. CONTRAST: Omnipaque 350; 100 mL IV. DLP: 1412.72 mGy.cm COMPARISON: 04/21/2023, 01/13/2023, PET/CT 06/27/[address]: No pulmonary mass or metastatic nodule. No pericardial or pleural effusions. Heart is sligh tly enlarged. No mediastinal or hilar adenopathy. LEFT subclavian Mediport. Mild atherosclerosis aort a. Abdomen CT: Normal size liver. There are numerous scattered hypodensities throughout the liver which have been previously described. MRI imaging compatible with cysts. Some of these are too small to rogers racterize. There are no new areas suspicious for metastatic disease. No intrahepatic bile duct dilata tion. Gallbladder is normal. Normal spleen. Mild pancreatic atrophy. No bile duct dilatation. Normal LEFT adrenal gland. Stable 8 mm nodule RIGHT adrenal gland. Mild renal atrophy of each kidney. Extens loretta numerous bilateral renal cysts. No obstruction of either kidney. Status post endovascular graft r epair of the abdominal aorta. No periaortic hematoma or fluid. Mesenteric artery calcifications. Nondistended stomach. No small bowel obstruction. Rectosigmoid anastomotic sutures are reidentified. No rectal wall thickening or adjacent adenopathy. No mesorectal fat stranding. Fat-containing umbilic al hernia. Pelvic CT: Mild prostate gland enlargement and heterogeneity. Normal urinary bladder. Increase in thoracic kyphosis. No destructive bone lesions. Facet joint arthropathy. CT/CT chest abdpel w/*[id number] IMPRESSION: 1. No evidence for metastatic disease in the chest, abdomen or pelvis. 2. Rectosigmoid anastomotic sutures are stable. No recurrent mass near the kashif stomosis. 3. No ascites. 4. Stable aortobiiliac stent graft. 5. Extensive aortic and iliac calcification. Arterial calcifications extend in to the mesenteric arteries. Component of mesenteric stenosis is likely. No isch emic changes. 6. Stable hepatic and renal cysts.
[2023-09-18] MEDS: iohexol 350 mg/mL 500 mL Btl (per mL) PO (11:09)
[2023-09-18] MEDS: iohexol 350 mg/mL 500 mL Btl (per mL) IV (11:09)
== END 2023-09-18 09:24 | disposition home or self-care (01) ==
LOC: RAD 09:24
PROVIDERS: PCP Nurse Practitioner; Visit Provider Internal Medicine Medical Oncology
DX: C19 Malignant neoplasm of rectosigmoid junction (principal)
CPT/HCPCS: 71260; 74177; Q9967

== ENCOUNTER 2023-10-03 09:22 | Oncology outpatient (recurring) (ONCR) | payer MEDICARE, OTHER, SELFPAY ==
[2023-10-03 09:48] LABS: Basophils % 0.7 %; Eosinophils # 0.1 10^3/uL (0.0-0.8); Eosinophils % 1.3 %; Lymphocytes # 0.6 10^3/uL (0.8-4.8); Lymphocytes % 13.9 %; Mean Corpuscular HGB Conc 33.2 g/dL (30-55); Mean Corpuscular Hemoglobin 31.1 pg (27-33); Mean Corpuscular Volume 93.8 fl (82-101); Mean Platelet Volume 10.7 fL (7.4-10.4); Monocytes # 0.3 10^3/uL (0.2-0.9); Monocytes % 6.9 %; Neutrophils # 3.44 10^3/uL (1.8-7.7); Nucleated Red Blood Cells % 0 %; Platelet Count 95 10^3/cmm (157-399); Red Blood Count 4.05 10^6/uL (3.85-5.65); Red Cell Distribution Width 14.5 % (12.1-15.1); White Blood Count 4.47 10^3/uL (3.29-11.43)
[2023-10-03 10:13] LABS: Carcinoembryonic Antigen 6.7 ng/mL (0.0-4.7)
[2023-10-03 10:24] LABS: Alanine Aminotransferase 14 U/L (0-41); Albumin Level 3.9 g/dL (3.5-5.2); Alkaline Phosphatase 95 U/L (40-130); Anion Gap 14.4 (5-19); Aspartate Amino Transferase 21 U/L (0-40); Blood Urea Nitrogen 23 mg/dL (8-23); Calcium 8.9 mg/dL (8.5-10.5); Carbon Dioxide 25 mmol/L (22-29); Chloride 106 mmol/L (98-107); Globulin 2.2 g/dL (1.3-4.6); Glucose 105 mg/dL (65-115); Osmolality Calculated 296 mOsm/kg (285-295); Potassium 4.4 mmol/L (3.5-5.1); Sodium 141 mmol/L (136-145); Total Bilirubin 1.2 mg/dL (0.15-1.2); Total Protein 6.1 g/dL (6.6-8.7)
[2023-10-03 11:31] LABS: Thyroid Stimulating Hormone 1.33 uIU/mL (0.27-4.20)
== END 2023-10-15 23:59 | disposition home or self-care (01) ==
PROVIDERS: Internal Medicine Medical Oncology; PCP Nurse Practitioner; Visit Provider Nurse Practitioner Family
DX: C19 Malignant neoplasm of rectosigmoid junction; R53.83 Other fatigue; Z79.899 Other long term (current) drug therapy
CPT/HCPCS: 36591; 80053; 82378; 84443; 85025; 99214

== ENCOUNTER → 2023-10-23 10:07 | Outpatient (BNVA) | payer MEDICARE, OTHER, SELFPAY | PROVIDERS: PCP Nurse Practitioner; Visit Provider Internal Medicine Cardiovascular Disease | DX: R00.1 Bradycardia, unspecified (principal); I49.3 Ventricular premature depolarization; I48.0 Paroxysmal atrial fibrillation; E78.2 Mixed hyperlipidemia; I10 Essential (primary) hypertension; Z79.01 Long term (current) use of anticoagulants | CPT/HCPCS: 99214 ==

== ENCOUNTER 2023-10-31 11:12 | Oncology outpatient (recurring) (ONCR) | payer MEDICARE, OTHER, SELFPAY | END 2023-11-15 23:59 | disposition home or self-care (01) | LOC: ONCMED 11:13 | PROVIDERS: PCP Nurse Practitioner; Visit Provider Nurse Practitioner Family | DX: Z45.2 Encounter for adjustment and management of vascular access device | CPT/HCPCS: 96523 ==

== ENCOUNTER 2023-11-29 13:53 | Oncology outpatient (recurring) (ONCR) | payer MEDICARE, OTHER, SELFPAY | END 2023-12-16 23:59 | disposition home or self-care (01) | LOC: ONCMED 13:55 | PROVIDERS: PCP Nurse Practitioner; Visit Provider Nurse Practitioner Family | DX: Z45.2 Encounter for adjustment and management of vascular access device (principal) ==

== ENCOUNTER 2024-01-02 14:11 | Oncology outpatient (recurring) (ONCR) | payer MEDICARE, OTHER, SELFPAY | END 2024-01-15 23:59 | disposition home or self-care (01) | LOC: ONCMED 14:12 | PROVIDERS: PCP Nurse Practitioner; Visit Provider Nurse Practitioner Family | DX: Z45.2 Encounter for adjustment and management of vascular access device (principal) | CPT/HCPCS: 96523 ==

== ENCOUNTER 2024-01-31 14:04 | Oncology outpatient (recurring) (ONCR) | payer MEDICARE, OTHER, SELFPAY | END 2024-02-15 23:59 | disposition home or self-care (01) | PROVIDERS: PCP Nurse Practitioner; Visit Provider Nurse Practitioner Family | DX: Z45.2 Encounter for adjustment and management of vascular access device (principal) | CPT/HCPCS: 96523 ==

== ENCOUNTER → 2024-02-19 13:38 | Outpatient (BNVA) | payer MEDICARE, OTHER, SELFPAY | PROVIDERS: PCP Nurse Practitioner; Visit Provider Nurse Practitioner Family | DX: L57.0 Actinic keratosis (principal); D18.01 Hemangioma of skin and subcutaneous tissue; C18.9 Malignant neoplasm of colon, unspecified; L82.1 Other seborrheic keratosis; Z85.820 Personal history of malignant melanoma of skin | CPT/HCPCS: 17000; 99213 ==

== ENCOUNTER 2024-03-05 12:10 | Oncology outpatient (recurring) (ONCR) | payer MEDICARE, OTHER, SELFPAY | END 2024-03-16 23:59 | disposition home or self-care (01) | LOC: ONCMED 12:10 | PROVIDERS: PCP Nurse Practitioner; Visit Provider Nurse Practitioner Family | DX: Z45.2 Encounter for adjustment and management of vascular access device (principal) | CPT/HCPCS: 96523 ==

== ENCOUNTER → 2024-04-04 15:58 | Outpatient (BNVA) | payer MEDICARE, OTHER, SELFPAY | PROVIDERS: PCP Nurse Practitioner Family; Visit Provider Nurse Practitioner Family | DX: R80.1 Persistent proteinuria, unspecified (principal) | CPT/HCPCS: 81000 ==

== ENCOUNTER 2024-04-09 09:30 | Oncology outpatient (recurring) (ONCR) | payer MEDICARE, OTHER, SELFPAY ==
[2024-04-01 10:55] LABS: Basophils % 0.4 %; Eosinophils # 0.1 10^3/uL (0.0-0.8); Hematocrit 35.6 % (37-53); Lymphocytes # 0.8 10^3/uL (0.8-4.8); Lymphocytes % 15.7 %; Mean Corpuscular HGB Conc 32.3 g/dL (30-55); Mean Corpuscular Hemoglobin 29.7 pg (27-33); Monocytes # 0.3 10^3/uL (0.2-0.9); Neutrophils # 3.79 10^3/uL (1.8-7.7); Neutrophils % 76.5 %; Nucleated Red Blood Cells % 0 %; Platelet Count 96 10^3/cmm (157-399); Red Blood Count 3.87 10^6/uL (3.85-5.65); Red Cell Distribution Width 14.7 % (12.1-15.1); White Blood Count 4.96 10^3/uL (3.29-11.43)
[2024-04-01 11:23] LABS: Carcinoembryonic Antigen 13.9 ng/mL (0.0-4.7)
[2024-04-01 11:35] LABS: Alanine Aminotransferase 12 U/L (0-41); Albumin Level 3.9 g/dL (3.5-5.2); Alkaline Phosphatase 101 U/L (40-130); Anion Gap 14.3 (5-19); Aspartate Amino Transferase 21 U/L (0-40); Blood Urea Nitrogen 21 mg/dL (8-23); Calcium 8.7 mg/dL (8.5-10.5); Carbon Dioxide 25 mmol/L (22-29); Chloride 105 mmol/L (98-107); Creatinine Clr Calc Pharmacy 102.6414; Globulin 2.1 g/dL (1.3-4.6); Glucose 133 mg/dL (65-115); Osmolality Calculated 295 mOsm/kg (285-295); Potassium 4.3 mmol/L (3.5-5.1); Sodium 140 mmol/L (136-145); Total Bilirubin 0.9 mg/dL (0.15-1.2)
[2024-04-09] MEDS: iohexol 350 mg/mL 500 mL Btl (per mL) PO (09:21)
--- NOTE | 2024-04-09 09:30 | CTR_ITS ---
PROCEDURE INFORMATION: Exam: CT Chest With Contrast; Diagnostic Exam date and time: 04/09/2024 9:49 AM Age: 78 years old Clinical indication: Condition or disease; Other: Colon cancer; Prior surgery; Surgery date: 6+ months; Surgery type: Colon, port, aneurysm thoracic; Additional info: Surveillance; Rising cea TECHNIQUE: Imaging protocol: Diagnostic computed tomography of the chest with contrast. Radiation optimization: All CT scans at this facility use at least one of these dose optimization techniques: automated exposure control; mA and/or kV adjustment per patient size (includes targeted exams where dose is matched to clinical indication); or iterative reconstruction. Contrast material: OMNI 350; Contrast volume: 100 ml; Contrast route: INTRAVENOUS (IV); COMPARISON: CT chest abdpel w/*[id number] 09/18/2023 11:03 AM RADIATION DOSE METRICS: Total DLP (mGy-cm): 1432.58 FINDINGS: Tubes, catheters and devices: There is a left chest port with the line tip appropriately positioned in the lower SVC near the cavoatrial junction. Lungs: There is subsegmental atelectasis in the lung bases. There is no consolidation. No suspicious pulmonary nodule. Pleural spaces: There is no pleural effusion or pneumothorax. Heart: There is mild cardiac enlargement. There is trace pericardial effusion. Lymph nodes: There is no mediastinal or hilar lymphadenopathy. Vasculature: There is mild aortic atherosclerotic disease. The ascending aorta is ectatic measuring 4.1 cm diameter, stable since 04/21/2023. Bones/joints: No suspicious bone lesions. Soft tissues: The extrathoracic soft tissues are unremarkable. PROCEDURE INFORMATION: Exam: CT Abdomen And Pelvis With Contrast Exam date and time: 04/09/2024 9:49 AM Age: 78 years old Clinical indication: Condition or disease; Other: Colon cancer; Prior surgery; Surgery date: 6+ months; Surgery type: Colon, port, aneurysm thoracic; Additional info: Surveillance; Rising cea TECHNIQUE: Imaging protocol: Computed tomography of the abdomen and pelvis with contrast. Radiation optimization: All CT scans at this facility use at least one of these dose optimization techniques: automated exposure control; mA and/or kV adjustment per patient size (includes targeted exams where dose is matched to clinical indication); or iterative reconstruction. Contrast material: OMNI 350; Contrast volume: 100 ml; Contrast route: INTRAVENOUS (IV); COMPARISON: 1. CT chest abdpel w/*[id number] 09/18/2023 11:[address] chest abdpel w/*[id number] 04/21/2023 3:11 PM RADIATION DOSE METRICS: Total DLP (mGy-cm): 1432.58 FINDINGS: Liver: Stable scattered well-defined water attenuation and near water attenuation liver lesions in the right and left lobes measuring up to 3.2 cm. Probable cysts. Gallbladder and biliary ducts: There is high attenuation material within the gallbladder lumen consistent with sludge. There is no intrahepatic or extrahepatic bile duct dilation. Pancreas: There is moderate atrophy of the pancreas. Spleen: The spleen is markedly enlarged. Adrenal glands: 13 x 11 mm intermediate density right adrenal nodule is stable since 04/21/2023. Kidneys and ureters: There are multiple simple cysts in the right kidney measuring up to 7.8 cm diameter. There are multiple simple cyst in the left kidney measuring up to 7.1 cm diameter. There is a 4 mm nonobstructive stone in the right kidney. There is no hydronephrosis or ureteral dilation on the right. No stones on the left. There is no hydronephrosis or ureteral dilation on the left. Stomach and bowel: The stomach is nondistended, limiting assessment of wall thickness. The small bowel is nondilated. There is no sign of colonic obstruction or inflammation. There is an unremarkable rectosigmoid anastomosis. No sign of recurrent colonic neoplasm. Appendix: The appendix is normal. Intraperitoneal space: There is no free air or significant intraperitoneal free fluid. Vasculature: There is a patent bifurcated aortoiliac endograft. The [place] sac demonstrates an exophytic pseudoaneurysm involving the anterior margin of the left psoas muscle visible on series 7, image 43. Distal aortic [place] sac with adjacent pseudoaneurysm measures 9.0 x 5.0 cm compared to 9.2 x 5.1 cm on 04/21/2023. There is severe aortic atherosclerotic disease. Endoleak is suspected based on contrast within the [place] sac on axial series 7, image 45. The portal, splenic and superior mesenteric veins are patent. There is recanalization and dilation of the umbilical vein. Lymph nodes: There is no lymphadenopathy in the retroperitoneum, mesentery, pelvis or inguinal regions. Urinary bladder: There is mild diffuse bladder wall thickening suggesting muscular hypertrophy. The urinary bladder is nondistended, limiting assessment of wall thickness. Reproductive: There is nonspecific marked enlargement of the prostate gland. There is stable focal fluid density in the posterior aspect of the prostate associated with calcifications. Bones/joints: There is moderate degenerative disease in the lumbar spine. There is mild degenerative disease of both hips. The bony pelvis is intact. No suspicious bone lesions. Soft tissues: The abdominal wall is intact. CT/CT chest abdpel w/*[id number] IMPRESSION: 1. No sign of metastases in the thorax. 2. Incidental findings above. IMPRESSION: 1. No sign of recurrent neoplasm or metastases in the abdomen or pelvis. 2. Patent bifurcated aortoiliac endograft with stable size of pseudoaneurysmal [place] sac since 04/21/2023 measuring up to 9 x 5 cm with probable endoleak. On 11/14/2019 the [place] sac measured 5.5 x 4.3 cm. Recommend surgical or endovascular consultation. 3. Stable 13 mm indeterminate right adrenal nodule. Consider 12 month follow-up adrenal CT. (Reference: Kota) 4. Recanalized dilated umbilical vein associated splenic enlargement consistent with portal hypertension. No ascites. 5. Incidental findings above. COMMENTS: Consistent with the [employer] [place] [employer]'s Incidental Findings Committee white paper (J Am [employer] Radiol 2018): Any incidental renal lesion less than 1 cm or classified as too small to characterize, or any incidental cystic renal lesion characterized as simple-appearing, is likely benign. No follow-up imaging is recommended for these lesions per consensus recommendations based on imaging criteria. REFERENCES: Kota CORMIER, et al. Management of Incidental Adrenal Masses: A White Paper of the ACR Incidental Findings Committee. J Am [place] Radiol. 2017;14(8):7114-5229.
[2024-04-09] MEDS: iohexol 350 mg/mL 500 mL Btl (per mL) IV (10:05)
== END 2024-04-16 23:59 | disposition home or self-care (01) ==
PROVIDERS: Internal Medicine Medical Oncology; PCP Nurse Practitioner Family; Visit Provider Nurse Practitioner Family
DX: R97.0 Elevated carcinoembryonic antigen [CEA] (principal); C19 Malignant neoplasm of rectosigmoid junction; N28.89 Other specified disorders of kidney and ureter
CPT/HCPCS: 36591; 71260; 74177; 80053; 82378; 85025; 99214

== ENCOUNTER → 2024-04-23 09:08 | Outpatient (BNVA) | payer MEDICARE, OTHER, SELFPAY | PROVIDERS: PCP Nurse Practitioner Family; Visit Provider Internal Medicine Cardiovascular Disease | DX: I10 Essential (primary) hypertension (principal); E78.2 Mixed hyperlipidemia; I48.0 Paroxysmal atrial fibrillation; I49.3 Ventricular premature depolarization; I71.40 Abdominal aortic aneurysm, without rupture, unspecified; Z87.891 Personal history of nicotine dependence; Z79.01 Long term (current) use of anticoagulants | CPT/HCPCS: 99214 ==

== ENCOUNTER 2024-05-01 09:17 | Oncology outpatient (recurring) (ONCR) | payer MEDICARE, OTHER, SELFPAY | END 2024-05-17 23:59 | disposition home or self-care (01) | PROVIDERS: PCP Nurse Practitioner Family; Visit Provider Nurse Practitioner Family | DX: Z45.2 Encounter for adjustment and management of vascular access device (principal) | CPT/HCPCS: 96523 ==

== ENCOUNTER 2024-05-27 09:03 | Oncology outpatient (recurring) (ONCR) | payer MEDICARE, OTHER, SELFPAY | END 2024-06-14 23:59 | disposition home or self-care (01) | LOC: ONCMED 09:03 | PROVIDERS: PCP Nurse Practitioner Family; Visit Provider Nurse Practitioner Family | DX: Z45.2 Encounter for adjustment and management of vascular access device (principal) | CPT/HCPCS: 96523 ==

== ENCOUNTER 2024-06-24 09:31 | Oncology outpatient (recurring) (ONCR) | payer MEDICARE, OTHER, SELFPAY | END 2024-07-15 23:59 | disposition home or self-care (01) | PROVIDERS: PCP Nurse Practitioner Family; Visit Provider Nurse Practitioner Family | DX: Z45.2 Encounter for adjustment and management of vascular access device (principal) | CPT/HCPCS: 96523 ==

== ENCOUNTER → 2024-07-04 08:35 | Outpatient (BNVA) | payer MEDICARE, OTHER, SELFPAY | PROVIDERS: PCP Nurse Practitioner Family; Visit Provider Nurse Practitioner Family | DX: M54.50 Low back pain, unspecified (principal); R10.9 Unspecified abdominal pain | CPT/HCPCS: 81003; 87086 ==

== ENCOUNTER 2024-08-13 14:30 | Oncology outpatient (recurring) (ONCR) | payer MEDICARE, OTHER, SELFPAY ==
[2024-07-19] MEDS: iohexol 350 mg/mL 500 mL Btl (per mL) IV (13:12)
[2024-07-19] MEDS: iohexol 350 mg/mL 500 mL Btl (per mL) PO (13:13)
[2024-07-19 13:22] LABS: Blood Urea Nitrogen 21 mg/dL (8-23)
--- NOTE | 2024-07-19 15:30 | CTR_ITS ---
PROCEDURE INFORMATION: Exam: CT Chest With Contrast; Diagnostic Exam date and time: 07/19/2024 1:27 PM Age: 78 years old Clinical indication: Other: Flank pain; Prior surgery; Surgery date: 6+ months; Surgery type: Aaa, bowel resection, HX of colon cancer with new onset of pain; Additional info: New back pain TECHNIQUE: Imaging protocol: Diagnostic computed tomography of the chest with contrast. Radiation optimization: All CT scans at this facility use at least one of these dose optimization techniques: automated exposure control; mA and/or kV adjustment per patient size (includes targeted exams where dose is matched to clinical indication); or iterative reconstruction. Contrast material: OMNI 350; Contrast volume: 100 ml; Contrast route: INTRAVENOUS (IV); COMPARISON: CT chest abdpel w/*[id number] 09/04/2024 09:49 RADIATION DOSE METRICS: Total DLP (mGy-cm): 1619.5 FINDINGS: Lungs: Unremarkable. No consolidation. No masses. Pleural spaces: No pneumothorax. Small right pleural effusion. Heart: Marked cardiomegaly with LV configuration. Marked atherosclerotic calcifications of the coronary arteries. No pericardial effusion. Lymph nodes: No pathologically lymph nodes by CT criteria. Subcentimeter AP window node. Vasculature: Unremarkable. No aortic aneurysm. Bones/joints: Mild convexity of the thoracic spine directed to the right and centering in the upper to midthoracic region. Sagittal images demonstrate moderate kyphotic angulation in the upper to mid T-spine. Multilevel degenerative spurring with bridging osteophytes seen along mid to lower thoracic spine No acute fracture. Soft tissues: Unremarkable. PROCEDURE INFORMATION: Exam: CT Abdomen And Pelvis With Contrast Exam date and time: 07/19/2024 1:27 PM Age: 78 years old Clinical indication: Other: Flank pain; Prior surgery; Surgery date: 6+ months; Surgery type: Aaa, bowel resection, HX of colon cancer with new onset of pain; Additional info: New back pain TECHNIQUE: Imaging protocol: Computed tomography of the abdomen and pelvis with contrast. Radiation optimization: All CT scans at this facility use at least one of these dose optimization techniques: automated exposure control; mA and/or kV adjustment per patient size (includes targeted exams where dose is matched to clinical indication); or iterative reconstruction. Contrast material: OMNI 350; Contrast volume: 100 ml; Contrast route: INTRAVENOUS (IV); COMPARISON: CT chest abdpel w/*[id number] 09/04/2024 09:49 RADIATION DOSE METRICS: Total DLP (mGy-cm): 1619.5 FINDINGS: Liver: Multiple scattered hepatic cysts unchanged in size, configuration and attenuation. No mass. Gallbladder and biliary ducts: Normal. No calcified stones. No ductal dilation. Pancreas: Avtzhtbc-ow-hrfkvi atrophy/involutional changes. Spleen: Enlarged at 14.8 cm and unchanged. Adrenal glands: Unchanged right 1.2 cm adrenal nodular density. Kidneys and ureters: Multiple bilateral prominent renal cyst-like changes are seen unchanged in size and configuration. A right upper to mid pole nonobstructing calculus is noted and this too is unchanged maximally measuring 0.4 cm. No hydronephrosis. Stomach and bowel: The left anterolateral aspect of the abdominal wall is cut from view. Contrast is seen in the proximal to mid portions of the small bowel. Granular stool like debris is noted along the ascending transverse and rectosigmoid regions of the colon. Postsurgical changes with cerclage radiopaque artifact seen about the rectosigmoid region. No obstruction. No mucosal thickening. Appendix: No evidence of appendicitis. The appendix appears to be normal on image 70 of series 12. Intraperitoneal space: Unremarkable. No free air. No significant fluid collection. Vasculature: Moderately prominent diffuse atherosclerotic calcifications seen throughout the thoracic and abdominal aorta as well as iliac vessels. Again observed is the aortoiliac endograft with left posterolateral pseudoaneurysm extending up to the left psoas margin. Loss of the fat plane between the aneurysm and the psoas margin is again noted. Images 46 through 48 of series 12 suggests the presence of an endograft leak. Significant increase in size of the aneurysm appears to be present and measures 5.4 x 6.4 cm in the AP and transverse dimensions (previous 6.2 x 4.9 cm). Patency of the graft is not well appreciated but I suspect contrast enhancement to be present along the channels when arterial density measurements are taken and compared to venous blood (94 Hounsfield units versus 71 Hounsfield units). Lymph nodes: Unremarkable. No enlarged lymph nodes. Urinary bladder: Unchanged with mild residual urine and moderate mural thickening. Reproductive: Unchanged again demonstrating prosthetic enlargement with posterior fluid collection and small calcifications. Bones/joints: The lumbar spine demonstrates convexity mildly to moderately prominent degree being directed to the left. Trace degenerative anterolisthesis of L4/L5 is present. Culigcst-or-failfr degenerative stenosis is seen at L4-L5. Multilevel degenerative changes are seen with spurring along thoracolumbar region. No acute fracture. Soft tissues: Unremarkable. CT/CT chest abdpel w/*[id number] IMPRESSION: 1. Nonspecific small right pleural effusion. 2. Marked cardiomegaly prominent atherosclerotic calcifications of the coronary arteries . 3. Additional chronic changes, described above. IMPRESSION: 1. Enlarging infrarenal abdominal aortic aneurysm with suspected endoleak warranting further correlation and follow-up with vascular surgery. 2. Multiple additional chronic as well as postsurgical abdominopelvic changes again noted, as described above. 3. The left anterolateral aspect of the abdomen is cut from view and NOT visualized. 4. The critical result/endovascular leak was discussed with Dr. London at 5:36 p.m. EST.
[2024-08-13] MEDS: iohexol 350 mg/mL 500 mL Btl (per mL) PO (14:04)
[2024-08-13] MEDS: iohexol 350 mg/mL 500 mL Btl (per mL) IV (14:21)
--- NOTE | 2024-08-13 14:30 | CT_ITS ---
WS: [id number] CT ABDOMEN AND PELVIS WITH CONTRAST HISTORY: anteriolateral left side of abdomen missing on 07/19/24 CT, history of colon cancer. TECHNIQUE: Imaging performed of the abdomen and pelvis with IV contrast. Single phase imaging of the abdomen. Coronal and sagittal reformats are submitted. All CT scans at [facility] use at least one of these dose optimization techniques: automated exposure control; mA and/or kV adjustment per patient size (includes targeted exams where dose is matched to clinical indication); or iterative reconstruction. IV CONTRAST: Omnipaque 350; 100 mL IV. Oral contrast: Yes. DLP: 1092.80 mGy.cm COMPARISON: 04/09/2024, 07/19/2024 Lower thorax: Benign granuloma medial RIGHT lower lobe. Moderate cardiomegaly. No hiatal hernia. Liver/biliary system: Normal size liver with several hepatic cysts. The largest in the RIGHT lobe measures 2.1 x 2.8 cm. No intrahepatic dilatation or mass. Gallbladder: Normal. No gallstones or wall thickening. No pericholecystic fluid. Pancreas: Normal size pancreas and pancreatic duct. No adjacent inflammation. Spleen: Moderate splenomegaly of 17.3 cm in length. Adrenal glands: Tiny stable RIGHT adrenal nodule. LEFT adrenal gland is negative. Right kidney: Normal size kidney with no hydronephrosis. Multiple simple cysts. The largest 8.1 cm in diameter. Left kidney: Multiple renal cysts. Largest 7.4 cm. No obstruction. Aorta: Status post endovascular graft repair of the aorta. Ramona aneurysm measures 6.2 cm in maximum diameter just above the bifurcation. Similar appearance of 04/09/2024 There is a blush like area of enhancement adjacent to the distal graft just above the bifurcation. There is some draping of the aneurysm contacting the LEFT psoas muscle but no obvious progression since 04/09/2024. Lymphadenopathy: None. Free fluid: None. GI tract: No GI tract obstruction. Rectosigmoid anastomosis is stable. Abdominal wall: Umbilical hernia contains fat only. Pelvis: No free fluid or adenopathy within the pelvis. Enlarged prostate gland encroaching into the urinary bladder. Prostate measures 5.7 x 6.6 cm. No adenopathy or ascites. Bones: Scoliosis and degenerative disc disease in the lumbar spine. CT/CT abdomen pelvis w con* [id number] IMPRESSION: 1. Aortoiliac endograft is stable. Reidentified is a dilated [place] sac with a maximum diameter of 6.2 cm. Similar to the prior study of 04/09/2024. There is continued blush like area of enhancement adjacent to the graft suggesting an e ndovascular leak which was also noted on 04/09/2024. 2. Stable rectosigmoid anastomosis. No recurrent mass. 3. Hepatic and bilateral renal cysts. 4. Extensive atherosclerosis aorta and mesenteric arteries. 5. Prostate gland enlargement. 6. Moderate splenomegaly, 17.3 cm in length. 7. Cardiomegaly.
== END 2024-08-14 23:59 | disposition home or self-care (01) ==
LOC: RAD 08-14 00:01 → ONCMED 08-14 09:21
PROVIDERS: PCP Nurse Practitioner Family; Visit Provider Nurse Practitioner Family
DX: Z53.9 Procedure and treatment not carried out, unspecified reason; C19 Malignant neoplasm of rectosigmoid junction; I51.7 Cardiomegaly; R16.1 Splenomegaly, not elsewhere classified; N40.0 Benign prostatic hyperplasia without lower urinary tract symptoms; I70.0 Atherosclerosis of aorta; Q61.02 Congenital multiple renal cysts; K76.89 Other specified diseases of liver; K63.89 Other specified diseases of intestine
CPT/HCPCS: 71260; 74177; 82565; 84520; 96523

== ENCOUNTER 2024-08-20 12:11 | Oncology outpatient (recurring) (ONCR) | payer MEDICARE, OTHER, SELFPAY | END 2024-09-14 23:59 | disposition home or self-care (01) | PROVIDERS: PCP Nurse Practitioner Family; Visit Provider Nurse Practitioner Family | DX: L28.1 Prurigo nodularis (principal); L82.1 Other seborrheic keratosis; D22.39 Melanocytic nevi of other parts of face; Z08 Encounter for follow-up examination after completed treatment for malignant neoplasm; Z85.820 Personal history of malignant melanoma of skin; L57.0 Actinic keratosis; Z95.828 Presence of other vascular implants and grafts | CPT/HCPCS: 17000; 96523; 99213 ==

== ENCOUNTER 2024-10-01 09:45 | Oncology outpatient (recurring) (ONCR) | payer MEDICARE, OTHER, SELFPAY ==
[2024-09-16 10:31] LABS: Basophils % 0.7 %; Eosinophils # 0.1 10^3/uL (0.0-0.8); Eosinophils % 1.6 %; Hematocrit 37.1 % (37-53); Lymphocytes # 0.8 10^3/uL (0.8-4.8); Lymphocytes % 14.2 %; Mean Corpuscular HGB Conc 33.7 g/dL (30-55); Mean Corpuscular Hemoglobin 30.9 pg (27-33); Mean Corpuscular Volume 91.6 fl (82-101); Mean Platelet Volume 10.3 fL (7.4-10.4); Monocytes # 0.4 10^3/uL (0.2-0.9); Monocytes % 7.4 %; Neutrophils % 75.7 %; Nucleated Red Blood Cells % 0 %; Platelet Count 120 10^3/cmm (157-399); Red Blood Count 4.05 10^6/uL (3.85-5.65); Red Cell Distribution Width 14.4 % (12.1-15.1); White Blood Count 5.55 10^3/uL (3.29-11.43)
[2024-09-16 10:53] LABS: Carcinoembryonic Antigen 19.1 ng/mL (0.0-4.7)
[2024-09-16 11:04] LABS: Alanine Aminotransferase 14 U/L (0-41); Albumin Level 4.1 g/dL (3.5-5.2); Alkaline Phosphatase 133 U/L (40-130); Anion Gap 14.4 (5-19); Aspartate Amino Transferase 22 U/L (0-40); Blood Urea Nitrogen 13 mg/dL (8-23); Carbon Dioxide 27 mmol/L (22-29); Chloride 104 mmol/L (98-107); Globulin 2.2 g/dL (1.3-4.6); Glucose 100 mg/dL (65-115); Osmolality Calculated 292 mOsm/kg (285-295); Potassium 4.4 mmol/L (3.5-5.1); Sodium 141 mmol/L (136-145); Total Bilirubin 1.2 mg/dL (0.15-1.2); Total Protein 6.3 g/dL (6.6-8.7)
--- NOTE | 2024-09-20 11:30 | PETR_ITS ---
PROCEDURE INFORMATION: Exam: PET/CT Skull Base to Mid-thigh Exam date and time: 09/20/2024 10:51 AM Age: 78 years old Clinical indication: Symptoms: Cancer of rectosigmoid junction. Prior surgery; Surgery date: 6+ months; Surgery type: Colon resection / aaa; Additional info: Compare to previous LABS AND CLINICAL REPORTS: Glucose: 112 mg/dl Treatment strategy for malignancy (PET staging): Restaging (PS) TECHNIQUE: Imaging protocol: Following at least four-hour fasting and following the injection of radiopharmaceutical, low dose CT images were obtained. Then, PET images were obtained. Attenuation corrected images were constructed using the CT scan. Fused images of PET and CT were reviewed. The standardized uptake values (SUV) reported below are maximum values within a region of interest, expressed in gm/ml. Exam includes orbital meatal line to mid-thigh. SUV normalization method: BodyWeight Radiopharmaceutical: 12.48 mCi F-18 FDG (Fluorodeoxyglucose), IV. Time of imaging post radiopharmaceutical administration: 46 minutes Injection site: Left AC COMPARISON: 1. PT PET skull to thigh INIT [id number] 06/27/2023 10:[address] abdomen pelvis w con* [id number] 08/13/2024 2:[address] chest abdpel w/*[id number] 07/19/2024 1:27 PM FINDINGS: Limitations: Some extravasated radiotracer at the left antecubital fossa with venous radiotracer extending proximally to the subclavian level decreases available FDG. Tubes, catheters and devices: Left chest port terminates near the superior cavoatrial junction. Brain: Visualized brain has normal physiologic uptake. Pharynx: No abnormal uptake. Larynx: No abnormal uptake. Lungs, pleura and trachea: No abnormal uptake. Right lower lobe calcified granulomata. Heart: Normal physiologic uptake. Cardiomegaly. Coronary arteries: Moderate LAD coronary artery calcification. Mediastinal space: No abnormal uptake. Liver: No abnormal uptake. Stable photopenic hepatic cysts and subcentimeter hypodensities too small to characterize. Few developed indeterminate non FDG avid hyperdense foci, index measuring 1 cm at the right lobe on axial image 134. Gallbladder and biliary ducts: No abnormal uptake. Pancreas: No abnormal uptake. Spleen: No abnormal uptake. Redemonstrated splenomegaly. Adrenal glands: No abnormal uptake. Stable non FDG avid 1.2 cm right adrenal nodule compatible with adenoma. Kidneys and ureters: Normal physiologic uptake. Bilateral photopenic renal cysts. Stomach and bowel: No abnormal uptake. Stable rectosigmoid anastomosis. Reproductive: Prostatomegaly. No abnormal uptake. Vasculature: No abnormal uptake. Heavy systemic atherosclerotic calcification with stable infrarenal abdominal aortic aneurysm measuring 6.4 cm with aorto bi-iliac stent graft. Lymph nodes: No abnormal uptake. No lymphadenopathy in the head, neck, chest, abdomen, pelvis, and extremities. Skeleton: No abnormal uptake in the visualized axial and appendicular skeleton. Degenerative changes along the spine. Soft tissues: No abnormal uptake in the visualized head, neck, chest, abdomen, pelvis, and extremities. Small fat containing umbilical and bilateral inguinal hernias. METRICS: Mediastinal blood pool: SUV mean 1.6 Liver uptake: SUV mean 2.3 PET/PET skull to thigh SUBS [id number] IMPRESSION: 1. Stable rectosigmoid anastomosis without evidence of local recurrence. 2. Few developed small hepatic hyperdensities without FDG avidity, metastatic disease not excluded. Recommend liver MRI without and with contrast. 3. Additional chronic and incidental findings as above.
[2024-10-01 09:17] LABS: Basophils % 0.4 %; Eosinophils # 0.1 10^3/uL (0.0-0.8); Hematocrit 36.6 % (37-53); Lymphocytes # 0.8 10^3/uL (0.8-4.8); Lymphocytes % 14.9 %; Mean Corpuscular HGB Conc 34.2 g/dL (30-55); Mean Corpuscular Hemoglobin 30.6 pg (27-33); Mean Corpuscular Volume 89.5 fl (82-101); Monocytes # 0.3 10^3/uL (0.2-0.9); Monocytes % 5.4 %; Neutrophils # 4.02 10^3/uL (1.8-7.7); Neutrophils % 77.9 %; Nucleated Red Blood Cells % 0 %; Platelet Count 120 10^3/cmm (157-399); Red Blood Count 4.09 10^6/uL (3.85-5.65); Red Cell Distribution Width 14.2 % (12.1-15.1); White Blood Count 5.16 10^3/uL (3.29-11.43)
[2024-10-01 09:53] LABS: Alanine Aminotransferase 12 U/L (0-41); Alkaline Phosphatase 141 U/L (40-130); Anion Gap 13.2 (5-19); Aspartate Amino Transferase 20 U/L (0-40); Blood Urea Nitrogen 18 mg/dL (8-23); Calcium 9.1 mg/dL (8.5-10.5); Carbon Dioxide 27 mmol/L (22-29); Chloride 105 mmol/L (98-107); Globulin 2.2 g/dL (1.3-4.6); Glucose 150 mg/dL (65-115); Osmolality Calculated 297 mOsm/kg (285-295); Potassium 4.2 mmol/L (3.5-5.1); Sodium 141 mmol/L (136-145); Total Protein 6.2 g/dL (6.6-8.7)
== END 2024-10-14 23:59 | disposition home or self-care (01) ==
PROVIDERS: Nurse Practitioner Family; PCP Nurse Practitioner Family; Visit Provider Internal Medicine Medical Oncology
DX: Z53.9 Procedure and treatment not carried out, unspecified reason; Z08 Encounter for follow-up examination after completed treatment for malignant neoplasm; Z85.038 Personal history of other malignant neoplasm of large intestine; R97.0 Elevated carcinoembryonic antigen [CEA]; Z95.828 Presence of other vascular implants and grafts; Z87.891 Personal history of nicotine dependence; Z92.21 Personal history of antineoplastic chemotherapy
CPT/HCPCS: 36591; 78815; 80053; 82378; 85025; 99213; 99214; A9552

== ENCOUNTER → 2024-10-23 09:09 | Outpatient (BNVA) | payer MEDICARE, OTHER, SELFPAY | PROVIDERS: PCP Nurse Practitioner Family; Visit Provider Nurse Practitioner Family | DX: I48.91 Unspecified atrial fibrillation (principal); Z79.01 Long term (current) use of anticoagulants; I71.40 Abdominal aortic aneurysm, without rupture, unspecified; I49.3 Ventricular premature depolarization; I10 Essential (primary) hypertension; E78.2 Mixed hyperlipidemia; Z87.891 Personal history of nicotine dependence | CPT/HCPCS: 99213 ==

== ENCOUNTER 2024-11-05 13:21 | Oncology outpatient (recurring) (ONCR) | payer MEDICARE, OTHER, SELFPAY ==
[2024-11-05 13:51] LABS: Hematocrit 36.5 % (37-53); Hemoglobin 11.80 g/dL (11.27-16.99); Mean Corpuscular HGB Conc 32.3 g/dL (30-55); Mean Corpuscular Hemoglobin 30.7 pg (27-33); Mean Corpuscular Volume 95.1 fl (82-101); Nucleated Red Blood Cells % 0 %; Platelet Count 105 10^3/cmm (157-399); Red Blood Count 3.84 10^6/uL (3.85-5.65); White Blood Count 5.53 10^3/uL (3.29-11.43)
[2024-11-05 14:20] LABS: Carcinoembryonic Antigen 20.8 ng/mL (0.0-4.7)
[2024-11-05 14:31] LABS: Alanine Aminotransferase 10 U/L (0-41); Albumin Level 3.9 g/dL (3.5-5.2); Alkaline Phosphatase 129 U/L (40-130); Anion Gap 14.3 (5-19); Aspartate Amino Transferase 17 U/L (0-40); Blood Urea Nitrogen 21 mg/dL (8-23); Calcium 8.7 mg/dL (8.5-10.5); Carbon Dioxide 25 mmol/L (22-29); Chloride 106 mmol/L (98-107); Creatinine Clr Calc Pharmacy 104.4273; Globulin 2.0 g/dL (1.3-4.6); Glucose 148 mg/dL (65-115); Osmolality Calculated 298 mOsm/kg (285-295); Potassium 4.3 mmol/L (3.5-5.1); Sodium 141 mmol/L (136-145); Total Protein 5.9 g/dL (6.6-8.7)
== END 2024-11-14 23:59 | disposition home or self-care (01) ==
LOC: ONCMED 13:21
PROVIDERS: PCP Nurse Practitioner Family; Visit Provider Internal Medicine Medical Oncology
DX: Z08 Encounter for follow-up examination after completed treatment for malignant neoplasm (principal); Z85.038 Personal history of other malignant neoplasm of large intestine; Z95.828 Presence of other vascular implants and grafts; Z87.891 Personal history of nicotine dependence; Z92.21 Personal history of antineoplastic chemotherapy
CPT/HCPCS: 36591; 80053; 82378; 85025; 99214

== ENCOUNTER → 2024-12-12 10:03 | Outpatient (BNVA) | payer MEDICARE, OTHER, SELFPAY | PROVIDERS: PCP Nurse Practitioner Family; Visit Provider Nurse Practitioner Family | DX: R30.9 Painful micturition, unspecified (principal); R39.9 Unspecified symptoms and signs involving the genitourinary system | CPT/HCPCS: 81003; 87086 ==

== ENCOUNTER 2024-12-13 11:31 | Oncology outpatient (recurring) (ONCR) | payer MEDICARE, OTHER, SELFPAY | END 2024-12-15 23:59 | disposition home or self-care (01) | LOC: ONCMED 11:32 | PROVIDERS: PCP Nurse Practitioner Family; Visit Provider Internal Medicine Medical Oncology | DX: Z45.2 Encounter for adjustment and management of vascular access device (principal); Z95.828 Presence of other vascular implants and grafts | CPT/HCPCS: 96523 ==

== ENCOUNTER → 2024-12-17 15:59 | Outpatient (BNVA) | payer MEDICARE, OTHER, SELFPAY | PROVIDERS: PCP Nurse Practitioner Family; Visit Provider Nurse Practitioner Family | DX: R39.9 Unspecified symptoms and signs involving the genitourinary system (principal); R82.81 Pyuria | CPT/HCPCS: 81000; 81003; 87086 ==

== ENCOUNTER 2024-12-24 07:29 | Oncology outpatient (recurring) (ONCR) | payer MEDICARE, OTHER, SELFPAY | END 2025-01-14 23:59 | disposition home or self-care (01) | PROVIDERS: PCP Nurse Practitioner Family; Visit Provider Internal Medicine Medical Oncology | DX: Z45.2 Encounter for adjustment and management of vascular access device (principal); Z95.828 Presence of other vascular implants and grafts; C18.7 Malignant neoplasm of sigmoid colon; R03.0 Elevated blood-pressure reading, without diagnosis of hypertension; Z87.891 Personal history of nicotine dependence | CPT/HCPCS: 96523; 99214 ==

== ENCOUNTER 2025-01-27 08:28 | Oncology outpatient (recurring) (ONCR) | payer MEDICARE, OTHER, SELFPAY ==
[2025-01-27 09:06] LABS: Hematocrit 33.9 % (37-53); Hemoglobin 12.00 g/dL (11.27-16.99); Mean Corpuscular HGB Conc 35.4 g/dL (30-55); Mean Corpuscular Hemoglobin 31.6 pg (27-33); Mean Corpuscular Volume 89.2 fl (82-101); Nucleated Red Blood Cells % 0 %; Platelet Count 150 10^3/cmm (157-399); Red Blood Count 3.80 10^6/uL (3.85-5.65); White Blood Count 6.68 10^3/uL (3.29-11.43)
[2025-01-27 09:34] LABS: Carcinoembryonic Antigen 51.2 ng/mL (0.0-4.7)
[2025-01-27 09:45] LABS: Alanine Aminotransferase 9 U/L (0-41); Albumin Level 4.1 g/dL (3.5-5.2); Alkaline Phosphatase 133 U/L (40-130); Anion Gap 14.8 (5-19); Aspartate Amino Transferase 15 U/L (0-40); Blood Urea Nitrogen 17 mg/dL (8-23); Calcium 9.0 mg/dL (8.5-10.5); Carbon Dioxide 26 mmol/L (22-29); Chloride 103 mmol/L (98-107); Creatinine Clr Calc Pharmacy 99.8402; Globulin 2.1 g/dL (1.3-4.6); Glucose 161 mg/dL (65-115); Osmolality Calculated 295 mOsm/kg (285-295); Potassium 3.8 mmol/L (3.5-5.1); Sodium 140 mmol/L (136-145); Total Protein 6.2 g/dL (6.6-8.7)
== END 2025-02-14 23:59 | disposition home or self-care (01) ==
PROVIDERS: PCP Nurse Practitioner Family; Visit Provider Internal Medicine Medical Oncology
DX: C18.7 Malignant neoplasm of sigmoid colon (principal); R03.0 Elevated blood-pressure reading, without diagnosis of hypertension; K76.89 Other specified diseases of liver; Z87.891 Personal history of nicotine dependence; Z92.21 Personal history of antineoplastic chemotherapy; Z95.828 Presence of other vascular implants and grafts; Z98.890 Other specified postprocedural states
CPT/HCPCS: 36591; 80053; 82378; 85025; 99214

== ENCOUNTER 2025-02-21 01:16 | Emergency (ER) | payer MEDICARE, OTHER, SELFPAY ==
[2025-02-21 01:22] VITALS: BP 137/97; PULSE 116; RESP 20; TEMP 36.8; O2SAT 96; BMI 32.5
--- NOTE | 2025-02-21 01:23 | ECG_ITS ---
[facility] Test Date: 2025-02-21 Pat Name: Raoul Linares Department: Room: Gender: Male [employer]: : [id number] Requested By: Negrita Maldonado Order Number: [id number] Bebo MD: Samantha Vang M.D. Measurements Intervals [place] Rate: 112 P: 89 MN: 102 QRS: -54 QRSD: 176 T: 96 QT: 385 QTc: 527 Interpretive Statements ELECTRONIC VENTRICULAR PACEMAKER ABNORMAL RHYTHM ECG Compared to ECG 10/30/2017 13:54:30 Sinus tachycardia no longer present First degree AV block no longer present Right bundle-branch block no longer present Left anterior fascicular block no longer present Myocardial infarct finding no longer present T-wave abnormality no longer present Possible ischemia no longer present Electronically Signed On 02-22-2025 13:00:26 PAN SHAKER by Samantha Vang M.D. [email or web address]
--- OUTSIDE RECORDS SUMMARY | 2025-02-21 01:24 | XMS_ITS | Clinical Summary ---
Author Organization [facility] Address [address] [place] [address] Care Team Providers Care Photographic Intelligence Officer Name Role Phone Ca Pedro JAQUEZ Primary Care Provider [phone] Ryne Jackson MD Unavailable [phone] Pito More MD Unavailable [phone] Allergies No known active allergies Medications allopurinoL (ZYLOPRIM) 100 mg tablet Take 2 tablets (200 mg total) by mouth daily 07/11/2022 Active Eliquis 2.5 mg tablet 08/15/2022 Active atorvastatin (LIPITOR) 20 mg tablet Take 1 tablet (20 mg total) by mouth daily 07/11/2022 Active finasteride (PROSCAR) 5 mg tablet TAKE ONE TABLET BY MOUTH EVERY DAY FOR 90 DAYS 07/18/2022 Active lisinopriL (PRINIVIL,ZESTR IL) 20 mg tablet Take 1 tablet (20 mg total) by mouth daily 07/11/2022 Active metoprolol XL (TOPROL-XL) 25 mg extended release tablet Take 1 tablet (25 mg total) by mouth 2 (two) times a day 08/08/2022 Active tamsulosin (FLOMAX) 0.4 mg extended release capsule Take 1 capsule (0.4 mg total) by mouth 2 (two) times a day 07/08/2022 Active traZODone (DESYREL) 50 mg tablet TAKE 1 TABLET BY MOUTH ONCE EVERY NIGHT AT BEDTIME NEEDED FOR SLEEP 08/01/2022 Active Active Problems Problem Noted Date Diagnosed Date Adenocarcinoma of sigmoid colon 08/09/2022 Family History Medical History Relation Name Comments Cancer Father Relation Name Status Comments Father Social History Tobacco Use Types Packs/Day Years Used Date Smoking Tobacco: Former Cigarettes Smokeless Tobacco: Never Tobacco Cessation:Counseling Given: Not Answered Personal Safety Answer Date Recorded Getting School Help Needed Not on file 06/17 Sex and Gender Information Value Date Recorded Sex Assigned at Not on file Legal Sex Male 1:58 PM CDT Gender Identity Not on file Sexual Orientation Not on file Last Filed Vital Signs Vital Sign Reading Time Taken Comments Blood Pressure 163/71 08/17/2022 11:14 AM CDT Pulse 72 08/17/2022 11:14 AM CDT Temperature 36.4 C (97.6 F) 08/17/2022 11:14 AM CDT Respiratory Rate 18 08/17/2022 11:14 AM CDT Oxygen Saturation 98% 08/17/2022 11:14 AM CDT Inhaled Oxygen Concentration - - Weight 126.6 kg (279 lb) 08/17/2022 11:14 AM CDT Height 179.5 cm (5' 10.67 ) 08/17/2022 11:14 AM CDT Body Mass Index 39.28 08/17/2022 11:14 AM CDT Plan of Treatment Health Maintenance Due Date Last Done Comments Depression Screening 1945 Fall Risk Assessment 1945 Hepatitis C Screening 1945 DTaP/Tdap/Td Vaccine (1 - Tdap) 1957 Hepatitis B Screening 1964 Pneumococcal vaccine 65+ (1 of 1 - PCV) 1996 Zoster Vaccine (1 of 2) 1996 Abdominal Aortic Aneurysm (A AA) Screen 12/03/2011 Well Visit 65+ 12/03/2011 Covid-19 Vaccine (6 - 2024-2 6 season) 2024 03/09/2022, 09/09/2021, 02/19/2021, Additional history exists Influenza Vaccine (#1) 2024 03/09/2022, 2018 Insurance MEDICARE [employer] [place] [id number] Care Teams Photographic Intelligence Officer Relationship Specialty Start Date End Date Pedro Penaloza, ORGANIZATIONAL PSYCHOLOGIST [address] [address] PCP - General Nurse Practitioner 07/21/22 Ryne Jackson MD [address] [place] [address] Referring Physician Hematology and Oncology 07/21/22 Pito More MD [facility] [place] [address] Referring Physician Colon and Rectal Surgery 07/25/22
--- OUTSIDE RECORDS SUMMARY | 2025-02-21 01:24 | XMS_ITS | Patient Health Record ---
Author Organization [employer] [facility], [facility] Address [address] [place] [address] Care Team Providers Care Hooker Machine Tender Name Role Phone JODY AMBRIZ Unavailable [phone] ELVIRA WEN Unavailable [phone] SirenaSeng Unavailable [phone] Allergies No Known Allergies Results Component Value Reference Range Notes Urinalysis, Routine Reviewed date:09/24/2024 09:14:12 AM Interpretation: Performing Lab: Notes/Report: Urine-Color dark yellow Appearance cloudy Glucose - Bilirubin 1+ Ketones - Specific Pelzer 1.030 Occult Blood +- pH 6.0 Urine Protein 1+ Urobilinogen,Semi-Qn - Nitrite, Urine - WBC Esterase 3+ UTI Pathogen Panel PCR Reviewed date:09/25/2024 01:21:02 PM Interpretation: Performing Lab: Notes/Report: Urinalysis, Routine Reviewed date:03/25/2024 10:16:20 AM Interpretation: Performing Lab: Notes/Report: Urine-Color yellow Appearance slightly cloudy Glucose - Bilirubin - Ketones - Specific Pelzer 1.010 Occult Blood - pH 7.0 Urine Protein - Urobilinogen,Semi-Qn - Nitrite, Urine - WBC Esterase 3+ Urinalysis Gross Exam - Reason For Referral No Information Medications Medication SIG (Take, Route, Frequency, Duration) Notes Start Date End Date Status Finasteride 5 MG 1 tablet Orally Once a day; Duration: 90 days 03/25/2024 03/20/2025 Active Tamsulosin HCl 0.4 MG 1 capsule Orally twice daily; Duration: 90 days 03/25/2024 03/20/2025 Active Metoprolol Succinate ER Active buPROPion HCl Active Atorvastatin Calcium Active Lisinopril Active Apixaban Active Allopurinol Active amLODIPine Besylate Active Tamsulosin HCl Twice a day Act loretta Finasteride Active Social History Tobacco Use: Social History Observation Description Date Details (start date - stop date) Former Smoker NA - NA Tobacco Use/Smoking Question Answer Notes Tobacco use: former smoker How long has it been since you last smoked? > 10 years Problems Problem Type SNOMED Code ICD Code Onset Dates Problem Status W/U Status Risk Notes Problem Total urinary incontinence (031791967) Continuous leakage (N39.45) Active confirmed Problem Nocturia (584140709) Nocturia (R35.1) Active confirmed Problem Lower urinary tract symptoms due to benign prostatic hypertrophy (01695130010491) Benign prostatic hyperplasia with lower urinary tract symptoms (N40.1) Active confirmed Problem Abdominal aortic aneurysm without rupture (disorder) (32844123) Abdominal aortic aneurysm, without rupture, unspecified (I71.40) Active confirmed Problem Urinary incontinence (099339017) Urinary incontinence (R32) Active confirmed Problem Urgent desire to urinate (63146962) Urinary urgency (R39.15) Active confirmed Problem Malignant neoplasm of colon (335312947) Colon carcinoma (C18.9) Active confirmed Vital Signs Temperature 97.6 degrees Fahrenheit 03/25/2024 Height-cm 182.88 cm 09/24/2024 Weight-kg 114.31 kg 09/24/2024 Height 72 in 09/24/2024 Weight 252 lbs 09/24/2024 BMI 34.17 kg/m2 09/24/2024 Procedures Procedure Date Ordered Date Performed Result Body Sit e Bladder Scan 09/24/2024 09/24/2024 N/A Encounters Encounter Location Date Provider Diagnosis [facility], [facility] [address] [place] [address] 03/25/2024 ELVIRA WEN Benign prostatic hyperplasia with lower urinary tract symptoms N40.1 ; Urinary incontinence R32 ; Nocturia R35.1 ; Continuous leakage N39.45 ; Colon carcinoma C18.9 and Urinary urgency R39.15 [facility] [facility], [facility] [address] [place] [address] 09/24/2024 Seng Sirena Benign prostatic hyperplasia with lower urinary tract symptoms N40.1 ; Urinary incontinence R32 ; Nocturia R35.1 ; Continuous leakage N39.45 ; Colon carcinoma C18.9 and Urinary urgency R39.15 Assessments Encounter Date Diagnosis (ICD Code) Assessment Notes Treatment Notes Treatment Clinical Notes Section Notes 09/24/2024 Benign prostatic hyperplasia with lower urinary tract symptoms (ICD-10 - N40.1) 78 yo male with BPH/LUTS on MMM. Will send todays UA for PCR testing, and treat further if indicated based on todays UA. He notes stable BPH/LUTS on Flomax 0.8mg and Finasteride, will continue at this time. Refill as needed. He will return in 6m with FR/PVR and IPSS. For now, and through shared decision making we are in agreement with no further workup or intervention at this time with care plan, aside from what was mentioned. Patient has no other voiced concerns or questions. Patient satisfied with plan. 03/25/2024 Benign prostatic hyperplasia with lower urinary tract symptoms (ICD-10 - N40.1) 78 yo male with BPH/LUTS on MMM. IPSS 11. Stable BPH/LUTS on Flomax 0.8mg and Finasteride, will continue at this time. He will return in 6m with UA/PVR and IPSS. Return sooner with any concerns Plan: continue flomax 0.8mg and proscar, Refills sent today - f/u w UA/ PVR/ IPSS in 6 months with Seng Pack APRN I, Stormy Kapelski, Scribe, am scribing for, and in the presence of, Dr. Wen. I, Dr. Elvira Wen, personally performed the services prescribed in this documentation, as scribed by Мария Horowitz, in my presence, and it is both accurate and complete. 03/25/2024 Urinary incontinence (ICD-10 - R32) 78 yo male with BPH/LUTS on MMM. IPSS 11. Stable BPH/LUTS on Flomax 0.8mg and Finasteride, will continue at this time. He will return in 6m with UA/PVR and IPSS. Return sooner with any concerns Plan: continue flomax 0.8mg and proscar, Refills sent today - f/u w UA/ PVR/ IPSS in 6 months with Seng Pack APRN I, Stormy Kapelski, Scribe, am scribing for, and in the presence of, Dr. Wen. I, Dr. Elvira Wen, personally performed the services prescribed in this documentation, as scribed by Мария Horowitz, in my presence, and it is both accurate and complete. 09/24/2024 Urinary incontinence (ICD-10 - R32) 78 yo male with BPH/LUTS on MMM. Will send todays UA for PCR testing, and treat further if indicated based on todays UA. He notes stable BPH/LUTS on Flomax 0.8mg and Finasteride, will continue at this time. Refill as needed. He will return in 6m with FR/PVR and IPSS. For now, and through shared decision making we are in agreement with no further workup or intervention at this time with care plan, aside from what was mentioned. Patient has no other voiced concerns or questions. Patient satisfied with plan. 09/24/2024 Nocturia (ICD-10 - R35.1) 78 yo male with BPH/LUTS on MMM. Will send todays UA for PCR testing, and treat further if indicated based on todays UA. He notes stable BPH/LUTS on Flomax 0.8mg and Finasteride, will continue at this time. Refill as needed. He will return in 6m with FR/PVR and IPSS. For now, and through shared decision making we are in agreement with no further workup or intervention at this time with care plan, aside from what was mentioned. Patient has no other voiced concerns or questions. Patient satisfied with plan. 03/25/2024 Nocturia (ICD-10 - R35.1) 78 yo male with BPH/LUTS on MMM. IPSS 11. Stable BPH/LUTS on Flomax 0.8mg and Finasteride, will continue at this time. He will return in 6m with UA/PVR and IPSS. Return sooner with any concerns Plan: continue flomax 0.8mg and proscar, Refills sent today - f/u w UA/ PVR/ IPSS in 6 months with Seng Pack APRN I, Alexis Quiroga am scribing for, and in the presence of, Dr. Wen. I, Dr. Elvira Wen, personally performed the services prescribed in this documentation, as scribed by Мария Horowitz, in my presence, and it is both accurate and complete. 09/24/2024 Continuous leakage (ICD-10 - N39.45) 78 yo male with BPH/LUTS on MMM. Will send todays UA for PCR testing, and treat further if indicated based on todays UA. He notes stable BPH/LUTS on Flomax 0.8mg and Finasteride, will continue at this time. Refill as needed. He will return in 6m with FR/PVR and IPSS. For now, and through shared decision making we are in agreement with no further workup or intervention at this time with care plan, aside from what was mentioned. Patient has no other voiced concerns or questions. Patient satisfied with plan. 03/25/2024 Continuous leakage (ICD-10 - N39.45) 78 yo male with BPH/LUTS on MMM. IPSS 11. Stable BPH/LUTS on Flomax 0.8mg and Finasteride, will continue at this time. He will return in 6m with UA/PVR and IPSS. Return sooner with any concerns Plan: continue flomax 0.8mg and proscar, Refills sent today - f/u w UA/ PVR/ IPSS in 6 months with Seng Pack APRN I, Stormy Kapelski, Scribe, charisma scribing for, and in the presence of, Dr. Wen. I, Dr. Elvira Wen, personally performed the services prescribed in this documentation, as scribed by Мария Horowitz, in my presence, and it is both accurate and complete. 09/24/2024 Colon carcinoma (ICD-10 - C18.9) 78 yo male with BPH/LUTS on MMM. Will send todays UA for PCR testing, and treat further if indicated based on todays UA. He notes stable BPH/LUTS on Flomax 0.8mg and Finasteride, will continue at this time. Refill as needed. He will return in 6m with FR/PVR and IPSS. For now, and through shared decision making we are in agreement with no further workup or intervention at this time with care plan, aside from what was mentioned. Patient has no other voiced concerns or questions. Patient satisfied with plan. 03/25/2024 Colon carcinoma (ICD-10 - C18.9) 78 yo male with BPH/LUTS on MMM. IPSS 11. Stable BPH/LUTS on Flomax 0.8mg and Finasteride, will continue at this time. He will return in 6m with UA/PVR and IPSS. Return sooner with any concerns Plan: continue flomax 0.8mg and proscar, Refills sent today - f/u w UA/ PVR/ IPSS in 6 months with Seng Pack APRN I, Stormy Kapelski, Scribe am scribing for, and in the presence of, Dr. Wen. I, Dr. Elvira Wen, personally performed the services prescribed in this documentation, as scribed by Мария Horowitz, in my presence, and it is both accurate and complete. 03/25/2024 Urinary urgency (ICD-10 - R39.15) 78 yo male with BPH/LUTS on MMM. IPSS 11. Stable BPH/LUTS on Flomax 0.8mg and Finasteride, will continue at this time. He will return in 6m with UA/PVR and IPSS. Return sooner with any concerns Plan: continue flomax 0.8mg and proscar, Refills sent today - f/u w UA/ PVR/ IPSS in 6 months with Seng Pack APRN I, Stormy Kapelski, Scribe am scribing for, and in the presence of, Dr. Wen. I, Dr. Elvira Wen, personally performed the services prescribed in this documentation, as scribed by Мария Horowitz, in my presence, and it is both accurate and complete. 09/24/2024 Urinary urgency (ICD-10 - R39.15) 78 yo male with BPH/LUTS on MMM. Will send todays UA for PCR testing, and treat further if indicated based on todays UA. He notes stable BPH/LUTS on Flomax 0.8mg and Finasteride, will continue at this time. Refill as needed. He will return in 6m with FR/PVR and IPSS. For now, and through shared decision making we are in agreement with no further workup or intervention at this time with care plan, aside from what was mentioned. Patient has no other voiced concerns or questions. Patient satisfied with plan. Plan Of Treatment Pending Test Test Name Order Date Bladder Scan 02/15/2023 Next Appt Details Provider Name:Seng Pack, 03/26/2025 11:00:00 AM, [address] [place], [address], Insurance Providers Payer Name Payer Address Payer Phone Subscriber Number Group Number Insured Name Patient Relationship to Insured Coverage Start Date Coverage End Date [place] [address] [place] [id number] Raoul Linares Self - patient is the insured [facility] Insurance [address] [address] [place] [id number] Raoul Linares Self - patient is the insured Medical (General) History Medical History History ICD Code hypertension colon cancer Heart issues Surgical History Surgery Date(Month/Year) cardiac anyurism colon cancer anayrism repair Hospitalization History Reason Date(Month/Year) urinary retention- 3 liters drained 2017
--- OUTSIDE RECORDS SUMMARY | 2025-02-21 01:24 | XMS_ITS | Encounter Summary ---
Author Organization [facility] Address [address] [place] [address] Care Team Providers Care Computer Forensics Technician Name Role Phone Unavailable Primary Care Provider Unavailabl e Encounter Details Date Type Department Care Team (Latest Contact Info) Description 12/15/2006 Outpatient Historical [address] [phone] Alejandro Martinez, PA NO ADDRESS ON FILE Acute Upper Respiratory Infections of Unspecified Site (Primary Dx) Social History Tobacco Use Types Packs/Day Years Used Date Smoking Tobacco: Never Assessed Sex and Gender Information Value Date Recorded Sex Assigned at Not on file Legal Sex Male 6:24 AM RN ENDOSCOPY Gender Identity Not on file Sexual Orientation Not on file documented as of this encounter Plan of Treatment Not on file documented as of this encounter Visit Diagnoses Diagnosis Acute upper respiratory infections of unspecified site- Primary documented in this encounter
--- OUTSIDE RECORDS SUMMARY | 2025-02-21 01:24 | XMS_ITS | Clinical Summary ---
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
[2025-02-21 01:33] LABS: Hematocrit 38.9 % (37-53); Hemoglobin 13.20 g/dL (11.27-16.99); Mean Corpuscular HGB Conc 33.9 g/dL (30-55); Mean Corpuscular Hemoglobin 30.6 pg (27-33); Mean Corpuscular Volume 90.3 fl (82-101); Nucleated Red Blood Cells % 0 %; Platelet Count 117 10^3/cmm (157-399); Red Blood Count 4.31 10^6/uL (3.85-5.65); White Blood Count 12.74 10^3/uL (3.29-11.43)
[2025-02-21 01:39] VITALS: BP 141/91; PULSE 114; RESP 16; O2SAT 95
--- NOTE | 2025-02-21 01:42 | W.ED.WEAKNES ---
HPI - Weakness General: Chief complaint: Weakness Stated complaint: Weakness Time Seen by Provider: 02/21/25 01:20 History of Present Illness: 79yo M w/pmhx of adenocarcinoma of the sigmoid colon (stage IIIB), AAA s/p endovascular repari, embolization of AAA graft leak in July 2024, atrial fibrillation on eliquis, HLD, HTN w/cc of generalized weakness and dark urine for the last three days. He has had a subjective fever at home. He's not experienced URI sx, chest pain, shortness of breath. He's not had abdominal pain, no n/v/d. He's had a bit of constipation. No dysuria but urine has been dark. He's been eating and drinking though appetite has been decreased. He's not fallen or injured himself. He's feeling generally weak. He also reports high heart rate. Related Data Home Medications ?Medication ?Instructions ?Recorded ?Confirmed mupirocin 2 % topical ointment topical 04/11/23 01/27/25 oxycodone 5 mg tablet 10 mg PO Q6H 01/24/25 01/27/25 Previous Rx's ?Medication ?Instructions ?Recorded finasteride 5 mg tablet 5 mg PO DAILY #90 tabs 10/11/22 tamsulosin 0.4 mg capsule 0.4 mg PO BID #180 caps 10/11/22 buspirone 5 mg tablet See Rx Instructions .Route 05/29/23 .COMPLEX #30 tabs magnesium L-lactate 84 mg 84 mg PO BID #180 tabs 12/04/23 tablet,extended release (Magtab) metoprolol succinate 25 mg 25 mg PO BID #270 tabs 12/04/23 tablet,extended release 24 hr trazodone 50 mg tablet See Rx Instructions .Route 02/05/24 .COMPLEX #30 tabs lisinopril 40 mg tablet 40 mg PO DAILY #90 tabs 03/11/24 tramadol 50 mg tablet 50 mg PO DAILY PRN pain 30 days 08/07/24 #30 tabs apixaban 2.5 mg tablet (Eliquis) See Rx Instructions .Route 09/04/24 .COMPLEX #180 tabs allopurinol 100 mg tablet See Rx Instructions .Route 10/30/24 .COMPLEX #60 tabs nitrofurantoin 100 mg PO BID 7 days #14 caps 12/12/24 monohydrate/macrocrystals 100 mg capsule (Macrobid) atorvastatin 20 mg tablet See Rx Instructions .Route 01/13/25 .COMPLEX #90 tabs bisacodyl 10 mg/30 mL enema (Fleet 5 mg (15 mL) MA ONCE #37 mL 01/24/25 Bisacodyl) lactulose 10 gram/15 mL oral 10 g (15 mL) PO DAILY PRN 01/24/25 solution constipation 30 days #237 mL amlodipine 2.5 mg tablet See Rx Instructions .Route 02/18/25 .COMPLEX #90 tabs sulfamethoxazole 800 1 tab PO BID 7 days #14 tabs 02/21/25 mg-trimethoprim 160 mg tablet (Bactrim DS) Allergies Allergy/AdvReac Type Severity Reaction Status Date / Time ragweed pollen Allergy Mild runny nose Verified 01/27/25 09:22 [facility] ED [facility]: Medical History (Updated 02/21/25 @ 03:55 by Negrita Maldonado MD) Constipation, unspecified constipation type UTI symptoms Cardiomegaly Splenomegaly Liver cyst Bilateral renal cysts Chronic back pain greater than 3 months duration DDD (degenerative disc disease), lumbar Low back pain Abdominal aortic aneurysm (AAA) 3.0 cm to 5.5 cm in diameter in male Endovascular repair, 07/2022, Dr Mazariegos @ [facility] PVC (premature ventricular contraction) RBBB Proteinuria Melanoma Atrial fibrillation Cancer of sigmoid colon Gastric antral vascular ectasia Tubular adenoma of colon Recurrent UTI Otitis externa Otitis media of both ears UTI (urinary tract infection), bacterial Lower respiratory infection Viral upper respiratory infection Saccular aneurysm Mixed hyperlipidemia Medication management BPH with obstruction/lower urinary tract symptoms Vitamin D deficiency H/O drainage of abscess 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 Gout Epididymitis Essential hypertension Surgical History Port-A-Cath in place 09/26/22 History of endovascular stent graft for abdominal aortic aneurysm (AAA) History of melanoma excision Melanoma in situ Family History Family/Other CAD (coronary artery disease) Cancer lung Myocardial infarction Mother Myocardial infarction Stroke Social History Smoking and tobacco/nicotine status: former use of tobacco/nicotine Quit status (tobacco/nicotine): has quit using Year quit tobacco: 1975 Former quit date comment: smoked x4 years Second hand smoke exposure: No Alcohol intake: current Alcohol intake frequency: holidays/special occasions only Substance/Drug Use: never Household members: spouse Marital status: Physical Exam Narrative: EXAM NARRATIVE: Vital signs were reviewed. Patient is alert and oriented. Patient is breathing comfortably, no increased WOB or accessory muscle use. SpO2 is above 95% on RA. Patient has clear lungs b/l, no rhonchi, wheezing or crackles. No hypotension. +Mild tachycardia. Abdomen is soft, nondistended and nontender. No CVA w/percussion of the flanks. Patient is moving all extremities, no deformity or gross injury. No lower extremity edema or asymmetry. Course Vital Signs: Vital signs: Vital Signs Temperature 98.3 F 02/21/25 01:22 Pulse Rate 113 H 02/21/25 03:08 Respiratory Rate 14 02/21/25 03:08 Blood Pressure 164/91 02/21/25 03:08 Pulse Oximetry 95 02/21/25 03:08 Oxygen Delivery Me thod Room Air 02/21/25 03:08 MDM - Weakness Medical Decision Making 79-year-old male presents with a chief complaint of generalized weakness, increased heart rate, decreased appetite and dark urine. Differential diagnosis includes but is not limited to, urinary tract infection, pyelonephritis, urosepsis, dehydration, viral upper respiratory infection, pneumonia, ACS, pancreatitis, cholecystitis, biliary obstruction, gastroenteritis, bowel obstruction, other. On exam, patient is alert and able to provide history. He is mildly tachycardic. Patient denies he was treated with 1 L of IV fluids. Patient was evaluated lab work including CBC, CMP, troponin, BNP, lactic acid, procalcitonin, magnesium, UA, blood culture, EKG. Patient has a mildly elevated white blood cell count but a normal lactic acid and normal procalcitonin. He does not have any kidney dysfunction no actionable electrolyte abnormalities. Patient does have a mildly elevated troponin but delta troponin is negative, patient continues to deny chest pain and shortness of breath. BNP is also mildly elevated but he tells me that he has an upcoming appointment with his phlebotomist supervisor/instructor within the next couple of weeks. At this time, he does not have any crackles on auscultation of the lungs, he is not hypoxic, has no increase in work of breathing and denies shortness of breath; I feel that outpatient cardiology follow-up is appropriate. Patient does have a urinary tract infection which was treated here with ceftriaxone, will prescribe Bactrim. Patient wishes to go home and I feel that this is reasonable. I advised him to follow-up closely with his regular doctor. He is mildly tachycardic but he does take metoprolol, he states he thinks he may have taken it but is unsure. We discussed very strict return precautions. Patient is not amenable to staying in the hospital at this time, he is alert, oriented and has decision-making capacity. Per patient's wishes, he was discharged home. Patient was discharged in a fair/stable condition. Lab Data 02/21/25 01:24 02/21/25 01:24 Laboratory Results WBC 12.74 10^3/uL (3.29-11.43) H 02/21/25 01:24 RBC 4.31 10^6/uL (3.85-5.65) 02/21/25 01:24 Hgb 13.20 g/dL (11.27-16.99) 02/21/25 01:24 Hct 38.9 % (37-53) 02/21/25 01:24 MCV 90.3 fl (82-101) 02/21/25 01:24 MCH 30.6 pg (27-33) 02/21/25 01:24 MCHC 33.9 g/dL (30-55) 02/21/25 01:24 RDW 14.6 % (12.1-15.1) 02/21/25 01:24 Plt Count 117 10^3/cmm (157-399) L 02/21/25 01:24 MPV 9.9 fL (7.4-10.4) 02/21/25 01:24 Neut % (Auto) 87.3 % 02/21/25 01:24 Lymph % (Auto) 3.9 % 02/21/25 01:24 [place] % (Auto) 7.9 % 02/21/25 01:24 Eos % (Auto) 0.3 % 02/21/25 01:24 Baso % (Auto) 0.3 % 02/21/25 01:24 Neut # (Auto) 11.11 10^3/uL (1.8-7.7) H 02/21/25 01:24 Lymph # (Auto) 0.5 10^3/uL (0.8-4.8) L 02/21/25 01:24 [place] # (Auto) 1.0 10^3/uL (0.2-0.9) H 02/21/25 01:24 Eos # (Auto) 0.0 10^3/uL (0.0-0.8) 02/21/25 01:24 Baso # (Auto) 0.0 10^3/uL (0.0-0.1) 02/21/25 01:24 Nucleated RBC % (auto) 0 % 02/21/25 01:24 Nucleated RBCs # 0.0 /100WBC 02/21/25 01:24 Sodium 136 mmol/L (136-145) 02/21/25 01:24 Potassium 4.0 mmol/L (3.5-5.1) 02/21/25 01:24 Chloride 99 mmol/L (98-107) 02/21/25 01:24 Carbon Dioxide 23 mmol/L (22-29) 02/21/25 01:24 Anion Gap 18.0 (5-19) 02/21/25 01:24 BUN 19 mg/dL (8-23) 02/21/25 01:24 Creatinine 0.6 mg/dL (0.7-1.2) L 02/21/25 01:24 GFR Calculation Not Reportable 02/21/25 01:24 Glucose 110 mg/dL (65-115) 02/21/25 01:24 Calculated Osmolality 285 mOsm/kg (285-295) 02/21/25 01:24 Lactic Acid 1.5 mmol/L (0.5-2.2) 02/21/25 01:24 Calcium 8.9 mg/dL (8.5-10.5) 02/21/25 01:24 Magnesium 1.9 mg/dL (1.7-2.3) 02/21/25 01:24 Total Bilirubin 1.9 mg/dL (0.15-1.2) H 02/21/25 01:24 AST 18 U/L (0-40) 02/21/25 01:24 ALT 17 U/L (0-41) 02/21/25 01:24 Alkaline Phosphatase 214 U/L (40-130) H 02/21/25 01:24 Troponin T Baseline 25 ng/L (0-15) H 02/21/25 01:24 Troponin T 120 Minute 25.33 ng/L (0-15) H 02/21/25 03:21 Delta Troponin T 0.33 ABS# (0-10) 02/21/25 03:21 NT-Pro-B Natriuret Pep 3151 pg/mL (0-450) H 02/21/25 01:24 Total Protein 6.0 g/dL (6.6-8.7) L 02/21/25 01:24 Albumin 4.3 g/dL (3.5-5.2) 02/21/25 01:24 Globulin 1.7 g/dL (1.3-4.6) 02/21/25 01:24 Procalcitonin 0.29 ng/mL (0-0.5) 02/21/25 01:24 Urine Color [place] (Yellow) A 02/21/25 01:30 Urine Appearance Turbid (CLEAR) A 02/21/25 01:30 Urine pH 5.5 (5-7) 02/21/25 01:30 Ur Specific [place] 1.036 (1.005-1.030) H 02/21/25 01:30 Urine Protein 4+ (Negative) A 02/21/25 01:30 Urine Glucose (UA) Negative (Normal) 02/21/25 01:30 Urine Ketones Trace (Negative) 02/21/25 01:30 Urine Blood 3+ (Negative) A 02/21/25 01:30 Urine Nitrate Positive (Negative) A 02/21/25 01:30 Urine Bilirubin 1+ (Negative) H 02/21/25 01:30 Urine Urobilinogen 1.0 mg/dL (Negative) 02/21/25 01:30 Ur Leukocyte Esterase 2+ (Negative) A 02/21/25 01:30 Urine RBC 21-50 /hpf (0-2) H 02/21/25 01:30 Urine WBC >100 /hpf (0-5) H 02/21/25 01:30 Ur Squamous Epith Cells 0-5 /hpf (0-5) 02/21/25 01:30 Amorphous Sediment Not Reportable 02/21/25 01:30 Urine Bacteria 4+ /hpf (NONE) H 02/21/25 01:30 Hyaline Casts 22.24 /lpf 02/21/25 01:30 Urine Mucus 2+ /hpf 02/21/25 01:30 No radiology studies performed this visit Discharge Plan Discharge Patient Disposition: Home Clinical Impression: Urinary tract infection in male, Tachycardia, Elevated brain natriuretic peptide (BNP) level Condition: Stable Prescriptions: New sulfamethoxazole-trimethoprim [Bactrim DS] 800-160 mg tablet 1 tab PO BID 7 Days Qty: 14 0RF No Action mupirocin 2 % ointment topical tramadol 50 mg tablet 50 mg PO DAILY PRN (Reason: pain) 30 Days Qty: 30 0RF nitrofurantoin monohyd/m-cryst [Macrobid] 100 mg capsule 100 mg PO BID 7 Days Qty: 14 0RF Rx Instructions: must administer with a meal/food oxycodone 5 mg tablet 10 mg PO Q6H lactulose 10 gram/15 mL solution 10 g PO DAILY PRN (Reason: constipation) 30 Days Qty: 237 0RF Fleet Bisacodyl 10 mg/30 mL enema 5 mg MA ONCE Qty: 37 0RF Rx Instructions: Use only as needed finasteride 5 mg tablet 5 mg PO DAILY Qty: 90 3RF Rx Instructions: TAKE ONE TABLET BY MOUTH EVERY DAY FOR 90 DAYS tamsulosin 0.4 mg capsule 0.4 mg PO BID Qty: 180 3RF buspirone 5 mg tablet See Rx Instructions .ROUTE .COMPLEX Qty: 30 2RF Dose Instruction: TAKE 1 TABLET BY MOUTH EVERY DAY Rx Instructions: TAKE 1 TABLET BY MOUTH EVERY DAY magnesium L-lactate [Magtab] 84 mg tablet extended release 84 mg PO BID Qty: 180 3RF metoprolol succinate 25 mg tablet extended release 24 hr 25 mg PO BID Qty: 270 3RF Rx Instructions: Take 50 mg in the AM and 25 mg in the PM trazodone 50 mg tablet See Rx Instructions .ROUTE .COMPLEX Qty: 30 1RF Dose Instruction: TAKE 1 TABLET BY MOUTH ONCE EVERY NIGHT AT BEDTIME NEEDED FOR SLEEP Rx Instructions: TAKE 1 TABLET BY MOUTH ONCE EVERY NIGHT AT BEDTIME NEEDED FOR SLEEP lisinopril 40 mg tablet 40 mg PO DAILY Qty: 90 3RF Eliquis 2.5 mg tablet See Rx Instructions .ROUTE .COMPLEX Qty: 180 3RF Dose Instruction: TAKE 1 TABLET BY MOUTH TWICE A DAY FOR atrial fibrillation Rx Instructions: TAKE 1 TABLET BY MOUTH TWICE A DAY FOR atrial fibrillation allopurinol 100 mg tablet See Rx Instructions .ROUTE .COMPLEX Qty: 60 1RF Dose Instruction: TAKE TWO TABLETS BY MOUTH EVERY DAY Rx Instructions: TAKE TWO TABLETS BY MOUTH EVERY DAY atorvastatin 20 mg tablet See Rx Instructions .ROUTE .COMPLEX Qty: 90 3RF Dose Instruction: TAKE 1 TABLET BY MOUTH EVERY DAY Rx Instructions: TAKE 1 TABLET BY MOUTH EVERY DAY amlodipine 2.5 mg tablet See Rx Instructions .ROUTE .COMPLEX Qty: 90 3RF Dose Instruction: TAKE 1 TABLET BY MOUTH EVERY DAY Rx Instructions: TAKE 1 TABLET BY MOUTH EVERY DAY Discharge Orders: Discharge ED (Routine); Ordered 02/21/25 Ordered By: Negrita Maldonado Referrals: GE[place] Penaloza, LUCAS [Primary Care Provider, Family Practice] Patient Instructions: Opioid Safety, Pain Management, Patient Portal & Mannie Instructions, Urinary Tract Infection - Men Activity Restrictions/Additional Instructions: Please start taking your antibiotics as prescribed. Please note that today, you have had elevated heart rate in the emergency department. Please continue taking your metoprolol twice a day as prescribed. You have also had an abnormal test that is a screening test for heart failure. Please call your phlebotomist supervisor/instructor office and see if you can follow-up sooner than your scheduled appointment, ideally early next week. Please follow-up closely with your primary care physician by Monday at the latest. Call today to make an appointment. Monitor your condition very closely at home. If your condition worsens or additional concerns arise, please return to the emergency department for reassessment. Print Language: Polish Coding Level of Care Code ED Gold Letterer for Brigitte Angulo
[2025-02-21 01:49] LABS: Troponin(5th) Baseline 25 ng/L (0-15)
[2025-02-21 01:50] LABS: Lactic Sepsis W/Reflex 1.5 mmol/L (0.5-2.2)
[2025-02-21 01:51] LABS: Glucose Urine UA Negative (Normal); Nitrate Urine Positive (Negative)
[2025-02-21 01:56] LABS: Add Urine Microscopic? YES
[2025-02-21 02:04] LABS: NT Pro B Type Natriuretic Pept 3151 pg/mL (0-450); Procalcitonin 0.29 ng/mL (0-0.5)
[2025-02-21 02:15] LABS: Alanine Aminotransferase 17 U/L (0-41); Albumin Level 4.3 g/dL (3.5-5.2); Alkaline Phosphatase 214 U/L (40-130); Anion Gap 18.0 (5-19); Aspartate Amino Transferase 18 U/L (0-40); Blood Urea Nitrogen 19 mg/dL (8-23); Calcium 8.9 mg/dL (8.5-10.5); Carbon Dioxide 23 mmol/L (22-29); Chloride 99 mmol/L (98-107); Creatinine Clr Calc Pharmacy 99.8794; Globulin 1.7 g/dL (1.3-4.6); Glucose 110 mg/dL (65-115); Magnesium 1.9 mg/dL (1.7-2.3); Osmolality Calculated 285 mOsm/kg (285-295); Potassium 4.0 mmol/L (3.5-5.1); Sodium 136 mmol/L (136-145); Total Protein 6.0 g/dL (6.6-8.7)
[2025-02-21 02:16] LABS: Specific Gravity, Urine 1.036 (1.005-1.030)
[2025-02-21 02:17] LABS: UA Slide Review UA Slide Review Perf
--- NOTE | 2025-02-21 02:59 | ECG_ITS ---
[facility] [place] Test Date: 2025-02-21 Pat Name: Raoul Linares Department: Room: Gender: Male Chief Steward/Stewardess: : 1945 Requested By: Negrita Maldonado Order Number: [id number] Bebo MD: Samantha Vang M.D. Measurements Intervals [place] Rate: 107 P: 89 MA: 111 QRS: -61 QRSD: 206 T: 87 QT: 416 QTc: 557 Interpretive Statements ELECTRONIC VENTRICULAR PACEMAKER ABNORMAL RHYTHM ECG Compared to ECG 02/21/2025 01:43:05 No significant changes Electronically Signed On 02-22-2025 13:00:17 BUTTON SEWER HAND by Samantha Vang M.D. [email or web address]
[2025-02-21] MEDS: cefTRIAXone 1,000 mg SDV 1000 MG IVP (03:01)
[2025-02-21 03:08] VITALS: BP 164/91; PULSE 113; RESP 14; O2SAT 95
[2025-02-21] MEDS: metoprolol succinate ER (24 HR) 25 mg Tablet PO (03:08)
[2025-02-21 03:43] LABS: Troponin 5 2HR 25.33 ng/L (0-15); Troponin 5 2HR Delta 0.33 ABS# (0-10)
[2025-02-21 06:16] VITALS: BP 150/78; PULSE 108; RESP 16; O2SAT 94
[2025-02-21 08:50] VITALS: BP 135/57; PULSE 94; O2SAT 98
== END 2025-02-21 08:51 | disposition home or self-care (01) ==
PROVIDERS: Emergency Provider Emergency Medicine; PCP Nurse Practitioner Family
DX: N39.0 Urinary tract infection, site not specified (principal); R00.0 Tachycardia, unspecified; R79.89 Other specified abnormal findings of blood chemistry; Z79.01 Long term (current) use of anticoagulants; Z87.891 Personal history of nicotine dependence; E78.2 Mixed hyperlipidemia; I10 Essential (primary) hypertension; Z85.820 Personal history of malignant melanoma of skin
CPT/HCPCS: 36415; 80053; 81001; 83605; 83735; 83880; 84145; 84484; 85025; 87040; 87077; 87086; 87186; 93005; 96361; 96374; 99284; J0696; J7030; J9999

== ENCOUNTER → 2025-02-27 11:28 | Outpatient (BNVA) | payer MEDICARE, OTHER, SELFPAY | PROVIDERS: PCP Nurse Practitioner Family; Visit Provider Nurse Practitioner Family | DX: N39.0 Urinary tract infection, site not specified (principal); E78.2 Mixed hyperlipidemia; I51.7 Cardiomegaly; I48.0 Paroxysmal atrial fibrillation | CPT/HCPCS: 80053; 81003; 83880; 85025; 87086 ==

== ENCOUNTER → 2025-03-05 13:54 | Outpatient (BNVA) | payer MEDICARE, OTHER, SELFPAY | PROVIDERS: PCP Nurse Practitioner Family; Visit Provider Nurse Practitioner Family | DX: N39.0 Urinary tract infection, site not specified (principal) | CPT/HCPCS: 81003; 87086 ==

== ENCOUNTER 2025-03-10 08:55 | Oncology outpatient (recurring) (ONCR) | payer MEDICARE, OTHER, SELFPAY ==
[2025-03-10 09:28] LABS: Hematocrit 35.6 % (37-53); Hemoglobin 11.60 g/dL (11.27-16.99); Mean Corpuscular HGB Conc 32.6 g/dL (30-55); Mean Corpuscular Hemoglobin 30.4 pg (27-33); Mean Corpuscular Volume 93.2 fl (82-101); Nucleated Red Blood Cells % 0 %; Platelet Count 118 10^3/cmm (157-399); Red Blood Count 3.82 10^6/uL (3.85-5.65); White Blood Count 5.21 10^3/uL (3.29-11.43)
[2025-03-10 10:10] LABS: Carcinoembryonic Antigen 21.1 ng/mL (0.0-4.7)
[2025-03-10 10:21] LABS: Alanine Aminotransferase 12 U/L (0-41); Albumin Level 4.0 g/dL (3.5-5.2); Alkaline Phosphatase 171 U/L (40-130); Anion Gap 13.2 (5-19); Aspartate Amino Transferase 20 U/L (0-40); Blood Urea Nitrogen 20 mg/dL (8-23); Calcium 9.0 mg/dL (8.5-10.5); Carbon Dioxide 26 mmol/L (22-29); Chloride 106 mmol/L (98-107); Creatinine Clr Calc Pharmacy 99.8402; Globulin 2.2 g/dL (1.3-4.6); Glucose 145 mg/dL (65-115); Osmolality Calculated 297 mOsm/kg (285-295); Potassium 4.2 mmol/L (3.5-5.1); Sodium 141 mmol/L (136-145); Total Protein 6.2 g/dL (6.6-8.7)
== END 2025-03-16 23:59 | disposition home or self-care (01) ==
PROVIDERS: PCP Nurse Practitioner Family; Visit Provider Internal Medicine Medical Oncology
DX: C18.7 Malignant neoplasm of sigmoid colon (principal); R03.0 Elevated blood-pressure reading, without diagnosis of hypertension; K76.89 Other specified diseases of liver; Z87.891 Personal history of nicotine dependence; Z92.21 Personal history of antineoplastic chemotherapy; Z95.828 Presence of other vascular implants and grafts; Z98.890 Other specified postprocedural states
CPT/HCPCS: 36591; 80053; 82378; 85025; 99213

== ENCOUNTER → 2025-03-17 13:42 | Outpatient (BNVA) | payer MEDICARE, OTHER, SELFPAY | PROVIDERS: PCP Nurse Practitioner Family; Visit Provider Nurse Practitioner Family | DX: R39.89 Other symptoms and signs involving the genitourinary system (principal); R82.81 Pyuria | CPT/HCPCS: 81003; 87086 ==

== ENCOUNTER → 2025-03-20 12:45 | Outpatient (BNVA) | payer MEDICARE, OTHER, SELFPAY | PROVIDERS: PCP Nurse Practitioner Family; Visit Provider Nurse Practitioner Family | DX: I48.20 Chronic atrial fibrillation, unspecified (principal); I51.7 Cardiomegaly; I31.39 Other pericardial effusion (noninflammatory); Z95.0 Presence of cardiac pacemaker; Z87.891 Personal history of nicotine dependence | CPT/HCPCS: 99214 ==

== ENCOUNTER → 2025-03-28 10:56 | Outpatient (BNVA) | payer MEDICARE, OTHER, SELFPAY | PROVIDERS: PCP Nurse Practitioner Family; Visit Provider Nurse Practitioner Family | DX: R39.9 Unspecified symptoms and signs involving the genitourinary system (principal) | CPT/HCPCS: 81003; 87086 ==

== ENCOUNTER → 2025-04-02 09:07 | Outpatient (BNVA) | payer MEDICARE, OTHER, SELFPAY | PROVIDERS: PCP Nurse Practitioner Family; Visit Provider Nurse Practitioner Family | DX: R39.9 Unspecified symptoms and signs involving the genitourinary system (principal) | CPT/HCPCS: 81000 ==

== ENCOUNTER 2025-04-14 08:52 | Oncology outpatient (recurring) (ONCR) | payer MEDICARE, OTHER, SELFPAY ==
[2025-04-14 09:13] LABS: Hematocrit 37.7 % (37-53); Hemoglobin 12.40 g/dL (11.27-16.99); Mean Corpuscular HGB Conc 32.9 g/dL (30-55); Mean Corpuscular Hemoglobin 30.5 pg (27-33); Mean Corpuscular Volume 92.9 fl (82-101); Nucleated Red Blood Cells % 0 %; Platelet Count 133 10^3/cmm (157-399); Red Blood Count 4.06 10^6/uL (3.85-5.65); White Blood Count 12.13 10^3/uL (3.29-11.43)
[2025-04-14 09:41] LABS: Carcinoembryonic Antigen 25.4 ng/mL (0.0-4.7)
[2025-04-14 09:52] LABS: Alanine Aminotransferase 12 U/L (0-41); Albumin Level 4.3 g/dL (3.5-5.2); Alkaline Phosphatase 170 U/L (40-130); Anion Gap 15.0 (5-19); Aspartate Amino Transferase 20 U/L (0-40); Blood Urea Nitrogen 20 mg/dL (8-23); Calcium 9.0 mg/dL (8.5-10.5); Carbon Dioxide 26 mmol/L (22-29); Chloride 103 mmol/L (98-107); Globulin 1.7 g/dL (1.3-4.6); Glucose 144 mg/dL (65-115); Osmolality Calculated 295 mOsm/kg (285-295); Potassium 4.0 mmol/L (3.5-5.1); Sodium 140 mmol/L (136-145); Total Protein 6.0 g/dL (6.6-8.7)
== END 2025-04-16 23:59 | disposition home or self-care (01) ==
PROVIDERS: Nurse Practitioner; PCP Nurse Practitioner Family; Visit Provider Internal Medicine Medical Oncology
DX: Z08 Encounter for follow-up examination after completed treatment for malignant neoplasm (principal); Z85.038 Personal history of other malignant neoplasm of large intestine; K76.89 Other specified diseases of liver; Z87.891 Personal history of nicotine dependence; Z92.21 Personal history of antineoplastic chemotherapy; Z95.828 Presence of other vascular implants and grafts
CPT/HCPCS: 80053; 82378; 85025; 99214